=== PATIENT | male | born 1945 | race African-American/Black ===

== ENCOUNTER 2019-12-11 12:05 | Inpatient (IN) | payer MEDICARE, OTHER ==
[~2019-12-11] VITALS: Ht 198.1 cm; Wt 77.1 kg
[2019-12-11 12:19] VITALS: BP 120/71
[2019-12-11] MEDS ORDERED: DULCOLAX10 MG RC (12:32)
[2019-12-11] MEDS ORDERED: AMANTADINE100 M2 ORAL (12:32)
[2019-12-11] MEDS ORDERED: MULTIVITAMINS1 EAC2 ORAL (12:32)
[2019-12-11] MEDS ORDERED: FLEET ENEMA133 ML RECTAL (12:32)
[2019-12-11] MEDS ORDERED: CRANBERRY450 M5 PO (12:32)
[2019-12-11] MEDS ORDERED: COLACE100 MG ORAL (12:32)
[2019-12-11] MEDS ORDERED: ARTIFICIAL TEAR15 M2 OP (12:32)
[2019-12-11] MEDS ORDERED: VITAMIN C500 M1 ORAL (12:32)
[2019-12-11] MEDS ORDERED: ACETAMINOPHEN500 MG ORAL (12:32)
[2019-12-11] MEDS ORDERED: MILK OF MA400 MG/51 ORAL (12:32)
[2019-12-11] MEDS ORDERED: LIDODERM700 M1 TOPIC (12:32)
[2019-12-11] MEDS ORDERED: CHOLECALCIFEROL1 G1 MC (12:32)
[2019-12-11] MEDS ORDERED: VOLTAREN100 G1 TP (12:33)
--- NOTE | 2019-12-11 12:50 | Emergency Room Report ---
History of Present Illness General Chief Complaint: Fever Present Illness HPI Disclaimer: Please note that this report is being documented using Or[employer] technology. This can lead to erroneous entry secondary to incorrect interpretation by the dictating instrument. HPI: 74-year-old male history of Parkinson's disease, generalized weakness, anxiety, dementia presented for fever. Patient reportedly have fever today of 100.6. No other report of nausea vomiting diarrhea or other complaints. Patient is altered at baseline and unable to provide any further history. Primary care doctor is Dr. Anderson PMH: Parkinson's disease, dementia PSH: Reviewed Social Hx: [facility] Allergies: Coded Allergies: No Known Allergies (Unverified , 12/11/19) Patient History Reviewed Nursing Documentation: PMH: Agreed; PSxH: Agreed Review of Systems All Other Systems: limited - due to AMS Physical Exam Vital Signs Date Time Temp Pulse Resp B/P (MAP) Pulse Ox O2 Delivery O2 Flow Rate FiO2 12/11/19 12:08 98.8 84 28 128/77 (94) 100 Nasal Cannula 2.0 Sp02 EP Interpretation: reviewed, normal General Appearance: other - tremor noted, Chronically Ill Head: normocephalic, atraumatic Eyes: bilateral eye PERRL, bilateral eye EOMI ENT: hearing grossly normal, moist mucus membranes Neck: full range of motion, supple Respiratory: lungs clear, normal breath sounds, no rhonchi, no respiratory distress, no retraction, no wheezing Cardiovascular #1: normal peripheral pulses, regular rate, rhythm, no murmur Gastrointestinal: non tender, soft, non-distended, no guarding Neurologic: alert, no focal defects, other - Patient awake but not oriented, baseline tremor noted in upper and lower extremities. Skin: normal color, warm/dry Medical Decision Making Diagnostic Impression: Primary Impression: Fever Additional Impressions: Suspected COVID-19 virus infection Failure to thrive ER Course MDM: Patient presents for fever, differential included but not limited to COVID , UTI, pneumonia to name a few. Clinical course-IV cardiac monitoring pulse oximetry, 2 L nasal cannula, chest x -ray and coronavirus testing were sent. In the ER patient mildly hypoxic requiring 2 L nasal cannula. Chest x-ray did not demonstrate any obvious infiltrate. Laboratory studies showed no leukocytosis. Urinalysis without evidence of infection. Patient was febrile with mild hypoxia so I do suspect possible coronavirus infection as he did come from a jail facility. Labs - Laboratory Tests Test 12/11/19 12:15 12/11/19 12:46 White Blood Count 8.5 K/UL (4.8-10.8) Red Blood Count 5.84 M/UL (4.70-6.10) Hemoglobin 17.6 G/DL (14.2-18.0) Hematocrit 49.7 % (42.0-52.0) Mean Corpuscular Volume 85 FL (80-99) Mean Corpuscular Hemoglobin 30.2 PG (27.0-31.0) Mean Corpuscular Hemoglobin Concent 35.5 G/DL (32.0-36.0) Red Cell Distribution Width 12.0 % (11.6-14.8) Platelet Count 301 K/UL (150-450) Mean Platelet Volume 5.0 FL (6.5-10.1) L Neutrophils (%) (Auto) 83.1 % (45.0-75.0) H Lymphocytes (%) (Auto) 8.5 % (20.0-45.0) L Monocytes (%) (Auto) 7.7 % (1.0-10.0) Eosinophils (%) (Auto) 0.0 % (0.0-3.0) Basophils (%) (Auto) 0.8 % (0.0-2.0) Sodium Level 144 MMOL/L (136-145) Potassium Level 4.0 MMOL/L (3.5-5.1) Chloride Level 104 MMOL/L (98-107) Carbon Dioxide Level 30 MMOL/L (21-32) Anion Gap 10 mmol/L (5-15) Blood Urea Nitrogen 54 mg/dL (7-18) H Creatinine 2.3 MG/DL (0.55-1.30) H Estimated Glomerular Filtration Rate 34.1 mL/min (>60) Glucose Level 140 MG/DL (74-106) H Lactic Acid Level 1.60 mmol/L (0.4-2.0) Calcium Level 9.3 MG/DL (8.5-10.1) Total Bilirubin 0.7 MG/DL (0.2-1.0) Aspartate Amino Transferase (AST) 133 U/L (15-37) H Alanine Aminotransferase (ALT) 95 U/L (12-78) H Alkaline Phosphatase 76 U/L (46-116) Total Creatine Kinase 861 U/L (26-308) H Creatine Kinase MB 0.7 NG/ML (0.0-3.6) Creatine Kinase MB Relative Index 0.0 Troponin I 0.021 ng/mL (0.000-0.056) Total Protein 8.1 G/DL (6.4-8.2) Albumin 3.6 G/DL (3.4-5.0) Globulin 4.5 g/dL Albumin/Globulin Ratio 0.8 (1.0-2.7) L Urine Color Yellow Urine Appearance Clear Urine pH 5 (4.5-8.0) Urine Specific [place] 1.025 (1.005-1.035) Urine Protein 3+ (NEGATIVE) H Urine Glucose (UA) Negative (NEGATIVE) Urine Ketones 1+ (NEGATIVE) H Urine Blood 2+ (NEGATIVE) H Urine Nitrite Negative (NEGATIVE) Urine Bilirubin 1+ (NEGATIVE) H Urine Ictotest Negative (NEGATIVE) Urine Urobilinogen 1 MG/DL (0.0-1.0) H Urine Leukocyte Esterase 1+ (NEGATIVE) H Urine RBC 2-4 /HPF (0 - 0) H Urine WBC 0-2 /HPF (0 - 0) Urine Squamous Epithelial Cells Occasional /LPF Urine Bacteria Few /HPF (NONE) On reevaluation: Plan- EKG Diagnostic Results Rate: normal Rhythm: NSR ST Segments: no acute changes Rhythm Strip Diag. Results EP Interpretation: yes Rate: 93 Rhythm: NSR, no PVC's, no ectopy Chest X-Ray Diagnostic Results Chest X-Ray Diagnostic Results : Chest X-Ray Ordered: Yes # of Views/Limited/Complete: 1 View Indication: Shortness of Breath EP Interpretation: Yes Interpretation: no consolidation, no effusion, no pneumothorax Impression: No acute disease Electronically Signed by: Braden Garcia MD Last Vital Signs Date Time Temp Pulse Resp B/P (MAP) Pulse Ox O2 Delivery O2 Flow Rate FiO2 12/11/19 12:19 100 23 Nasal Cannula 2.0 12/11/19 12:19 98.1 120/71 99 Disposition: ADMITTED INPATIENT Condition: Serious Referrals: Kevin Anderson MD (PCP) Braden Garcia M.D. Dec 11, 2019 12:50
[2019-12-11 12:52] LABS: BASOPHILS % (AUTO) 0.8 % (0.0-2.0); HEMATOCRIT 49.7 % (42.0-52.0); HEMOGLOBIN 17.6 G/DL (14.2-18.0); LYMPHOCYTES % (AUTO) 8.5 % (20.0-45.0); MEAN CORPUSCULAR VOLUME 85 FL (80-99); MONOCYTES % (AUTO) 7.7 % (1.0-10.0); NEUTROPHILS % (AUTO) 83.1 % (45.0-75.0); PLATELET COUNT 301 K/UL (150-450); RED BLOOD COUNT 5.84 M/UL (4.70-6.10); WHITE BLOOD COUNT 8.5 K/UL (4.8-10.8)
[2019-12-11 12:55] LABS: APPEARANCE,URINE CLEAR; BILIRUBIN, URINE 1+ (NEGATIVE); GLUCOSE, URINE (UA) NEGATIVE (NEGATIVE); KETONES,URINE 1+ (NEGATIVE); LEUKOCYTE ESTERASE ,URINE 1+ (NEGATIVE); NITRITE,URINE NEGATIVE (NEGATIVE); PH,URINE 5 (4.5-8.0); PROTEIN,URINE 3+ (NEGATIVE); UROBILINOGEN,URINE 1 MG/DL (0.0-1.0)
[2019-12-11 12:59] LABS: COLOR,URINE YELLOW
[2019-12-11 13:00] LABS: ANION GAP 10 mmol/L (5-15); BLOOD UREA NITROGEN 54 mg/dL (7-18); CALCIUM 9.3 MG/DL (8.5-10.1); CARBON DIOXIDE 30 MMOL/L (21-32); CHLORIDE 104 MMOL/L (98-107); CREATININE 2.3 MG/DL (0.55-1.30); SODIUM 144 MMOL/L (136-145)
[2019-12-11 13:15] LABS: ALANINE AMINOTRANSFERASE 95 U/L (12-78); ALBUMIN 3.6 G/DL (3.4-5.0); ALBUMIN/GLOBULIN RATIO 0.8 (1.0-2.7); ALKALINE PHOSPHATASE 76 U/L (46-116); ASPARTATE AMINO TRANSFERASE 133 U/L (15-37); BILIRUBIN,TOTAL 0.7 MG/DL (0.2-1.0); CKMB 0.7 NG/ML (0.0-3.6); CREATINE KINASE 861 U/L (26-308)
--- NOTE | 2019-12-11 16:20 | Diagnostic Imaging Report ---
Indication: Shortness of breath Technique: One view of the chest Comparison: none Findings: Inspiration is suboptimal. There are perihilar atelectatic changes. There is mild central bronchial wall thickening. Lungs and pleural spaces are clear otherwise. The heart size is normal. The aorta is tortuous. Prominent gas-filled bowel loops are noted. Impression: Chronic appearing central bronchial wall thickening. Low lung volumes. No definite acute process
[2019-12-11 16:44] VITALS: BP 141/82
[2019-12-11 19:00] VITALS: BP 113/65
[2019-12-11 22:15] VITALS: BP 144/76
[2019-12-12 01:40] VITALS: BP 146/85
[2019-12-12 04:00] VITALS: BP 113/68
[2019-12-12 06:39] LABS: HEMATOCRIT 49.9 % (42.0-52.0); HEMOGLOBIN 17.4 G/DL (14.2-18.0); MEAN CORPUSCULAR VOLUME 87 FL (80-99); PLATELET COUNT 282 K/UL (150-450); RED BLOOD COUNT 5.77 M/UL (4.70-6.10); RED CELL DISTRIBUTION WIDTH 11.9 % (11.6-14.8); WHITE BLOOD COUNT 10.5 K/UL (4.8-10.8)
[2019-12-12 07:28] LABS: ALANINE AMINOTRANSFERASE 111 U/L (12-78); ALBUMIN 3.4 G/DL (3.4-5.0); ALBUMIN/GLOBULIN RATIO 0.7 (1.0-2.7); ALKALINE PHOSPHATASE 72 U/L (46-116); ANION GAP 11 mmol/L (5-15); ASPARTATE AMINO TRANSFERASE 151 U/L (15-37); BILIRUBIN,TOTAL 0.9 MG/DL (0.2-1.0); BLOOD UREA NITROGEN 69 mg/dL (7-18); CALCIUM 9.2 MG/DL (8.5-10.1); CARBON DIOXIDE 31 MMOL/L (21-32); CHLORIDE 105 MMOL/L (98-107); CREATININE 1.7 MG/DL (0.55-1.30); POTASSIUM 3.7 MMOL/L (3.5-5.1); SODIUM 147 MMOL/L (136-145)
[2019-12-12 07:50] LABS: CREATINE KINASE 680 U/L (26-308); GAMMA GLUTAMYL TRANSPEPTIDASE 189 U/L (5-85); PHOSPHORUS 3.3 MG/DL (2.5-4.9)
[2019-12-12 08:00] VITALS: BP_SYST 122; BP_SYST 135; BP_DIAS 78; BP_DIAS 89
[2019-12-12] MEDS: Acetaminophen 650 MG SUPP RECTAL PRN ×2 (09:26→21:26)
--- NOTE | 2019-12-12 10:27 | Consultation ---
Consult Note Consult Note I was asked to evaluate the patient at the request of Dr. Ruby for renal failure. Visited patient in room 414. Patient is lethargic. Does not contribute to any history taking. It is the patient's first admission here at [facility]. Emergency room note: 74-year-old male history of Parkinson's disease, generalized weakness, anxiety, dementia presented for fever. Patient reportedly have fever today of 100.6. No other report of nausea vomiting diarrhea or other complaints. Patient is altered at baseline and unable to provide any further history. Primary care doctor is Dr. Anderson PMH: Parkinson's disease, dementia Social Hx: Currently lives in a [facility] facility No Known Allergies (Unverified , 12/11/19) No prior records here at [facility]. Current data in EMR reviewed. Patient examined. . Assessment/Plan This 74-year-old male is admitted with fever and possible COVID positive infection On presentation the patient has acute renal failure which suggests a pattern of mainly dehydration Most likely has underlying chronic kidney disease Other conditions include Parkinson's and dementia Evidence of UTI Elevated CK possible rhabdo Keep n.p.o. until evaluated by speech therapy IV hydration, monitor CPK and liver function tests Monitor renal parameters Flomax Per consultants Brent Gonsales MD Dec 12, 2019 10:27
[2019-12-12 12:00] VITALS: BP 139/79
[2019-12-12] MEDS: D5 1/2NS w/KCL 10meq 1,000 ML IV SCH (12:16)
--- NOTE | 2019-12-12 12:32 | Cardiac Electrophysiology PN ---
Subjective Subjective [id number] Objective Last 24 Hour Vital Signs Date Time Temp Pulse Resp B/P (MAP) Pulse Ox O2 Delivery O2 Flow Rate FiO2 12/12/19 09:56 99.0 12/12/19 09:00 Nasal Cannula 2.0 12/12/19 08:00 99.0 105 20 135/78 (97) 94 12/12/19 04:00 101.0 20 113/68 (83) 96 12/12/19 02:50 Nasal Cannula 2.0 12/12/19 01:44 101.7 12/12/19 01:40 101.7 107 18 146/85 (105) 98 12/11/19 22:15 100.9 103 20 144/76 (98) 94 12/11/19 21:55 98.1 97 25 111/70 97 Nasal Cannula 4.0 12/11/19 19:00 101 28 113/65 98 Nasal Cannula 4.0 12/11/19 16:44 98.1 99 22 141/82 99 Nasal Cannula 2.0 Laboratory Tests Test 12/11/19 12:46 12/12/19 04:45 Urine Color Yellow Urine Appearance Clear Urine pH 5 (4.5-8.0) Urine Specific [place] 1.025 (1.005-1.035) Urine Protein 3+ (NEGATIVE) H Urine Glucose (UA) Negative (NEGATIVE) Urine Ketones 1+ (NEGATIVE) H Urine Blood 2+ (NEGATIVE) H Urine Nitrite Negative (NEGATIVE) Urine Bilirubin 1+ (NEGATIVE) H Urine Ictotest Negative (NEGATIVE) Urine Urobilinogen 1 MG/DL (0.0-1.0) H Urine Leukocyte Esterase 1+ (NEGATIVE) H Urine RBC 2-4 /HPF (0 - 0) H Urine WBC 0-2 /HPF (0 - 0) Urine Squamous Epithelial Cells Occasional /LPF Urine Bacteria Few /HPF (NONE) White Blood Count 10.5 K/UL (4.8-10.8) Red Blood Count 5.77 M/UL (4.70-6.10) Hemoglobin 17.4 G/DL (14.2-18.0) Hematocrit 49.9 % (42.0-52.0) Mean Corpuscular Volume 87 FL (80-99) Mean Corpuscular Hemoglobin 30.2 PG (27.0-31.0) Mean Corpuscular Hemoglobin Concent 34.9 G/DL (32.0-36.0) Red Cell Distribution Width 11.9 % (11.6-14.8) Platelet Count 282 K/UL (150-450) Mean Platelet Volume 5.1 FL (6.5-10.1) L Neutrophils (%) (Auto) % (45.0-75.0) Lymphocytes (%) (Auto) % (20.0-45.0) Monocytes (%) (Auto) % (1.0-10.0) Eosinophils (%) (Auto) % (0.0-3.0) Basophils (%) (Auto) % (0.0-2.0) Differential Total Cells Counted 100 Neutrophils % (Manual) 87 % (45-75) H Lymphocytes % (Manual) 7 % (20-45) L Monocytes % (Manual) 5 % (1-10) Eosinophils % (Manual) 0 % (0-3) Basophils % (Manual) 0 % (0-2) Band Neutrophils 1 % (0-8) Platelet Estimate Adequate Platelet Morphology Normal Red Blood Cell Morphology Normal Sodium Level 147 MMOL/L (136-145) H Potassium Level 3.7 MMOL/L (3.5-5.1) Chloride Level 105 MMOL/L (98-107) Carbon Dioxide Level 31 MMOL/L (21-32) Anion Gap 11 mmol/L (5-15) Blood Urea Nitrogen 69 mg/dL (7-18) H Creatinine 1.7 MG/DL (0.55-1.30) H Estimat Glomerular Filtration Rate 48.2 mL/min (>60) Glucose Level 130 MG/DL (74-106) H Uric Acid 5.7 MG/DL (2.6-7.2) Calcium Level 9.2 MG/DL (8.5-10.1) Phosphorus Level 3.3 MG/DL (2.5-4.9) Magnesium Level 2.7 MG/DL (1.8-2.4) H Total Bilirubin 0.9 MG/DL (0.2-1.0) Gamma Glutamyl Transpeptidase 189 U/L (5-85) H Aspartate Amino Transf (AST/SGOT) 151 U/L (15-37) H Alanine Aminotransferase (ALT/SGPT) 111 U/L (12-78) H Alkaline Phosphatase 72 U/L (46-116) Total Creatine Kinase 680 U/L (26-308) H Total Protein 8.0 G/DL (6.4-8.2) Albumin 3.4 G/DL (3.4-5.0) Globulin 4.6 g/dL Albumin/Globulin Ratio 0.7 (1.0-2.7) L Microbiology Date/Time Source Procedure Growth Status 12/11/19 12:10 Nasopharynx Coronavirus COVID-19 PCR (EVIE) - Final Complete Luis Daniel Harding MD Dec 12, 2019 12:32
[2019-12-12] MEDS: Docusate 100mg cap ORAL SCH ×2 (13:00→17:15)
[2019-12-12] MEDS ORDERED: Amantadine 100mg cap ORAL SCH ×2 (13:00→18:00)
--- NOTE | 2019-12-12 14:30 | Consultation ---
DATE OF CONSULTATION: 12/12/2019 PULMONARY CONSULTATION CONSULTING PHYSICIAN: Xavier Gupta MD. HISTORY OF PRESENT ILLNESS: This is a 74-year-old male with a history of Parkinson disease, anxiety, and dementia, was admitted to the hospital with fever. The patient was febrile up to 100.6 degrees Fahrenheit. PAST MEDICAL HISTORY: The patient's past is notable for Parkinson's and dementia. [facility] is a [facility] resident. SURGERIES: None reported. HOME MEDICATIONS: Reviewed and reconciled in the chart. REVIEW OF SYSTEMS: Unreliable. PHYSICAL EXAMINATION: GENERAL: Reveals a 74-year-old male. VITAL SIGNS: T-max 101.7, heart rate 110, respirations 20, O2 saturation 96% on 2 L of oxygen, blood pressure 120/80. HEENT: Unremarkable. CHEST: Diminished breath sounds bilaterally. HEART: Normal heart sounds. ABDOMEN: Soft. EXTREMITIES: There is no edema. LABORATORY DATA: Lab testing shows normal CBC and BMP. Creatinine now is 1.7, earlier was 2.3. Magnesium 2.7. He has elevation of AST and ALT. Total CK 680. COVID-19 PCR obtained yesterday is positive. IMPRESSION: 1. COVID-19 pneumonia. 2. Parkinson's and dementia. 3. Transaminitis. DISCUSSION: The patient's x-ray is clear with some chronic-appearing changes, currently saturating well on nasal oxygen. We will follow as tile classifier. Ordered oxygen and pulmonary hygiene. Defer antibiotic use to ID specialist. We will follow. Xavier Gupta M.D. DR: WILBERTO JOB#: [id number] CC:
[2019-12-12 16:00] VITALS: BP 136/80
--- NOTE | 2019-12-12 16:00 | Consultation ---
DATE OF CONSULTATION: 12/12/2019 CARDIOLOGY CONSULTATION CONSULTING PHYSICIAN: Luis Daniel Harding MD. REFERRING PHYSICIAN: Kevin Anderson MD. REASON FOR CONSULTATION: Tachycardia. HISTORY OF PRESENT ILLNESS: Patient is a 74-year-old gentleman with history of anxiety, dementia, Parkinson disease who was essentially nonverbal, was brought to the hospital for fever and a temperature of 100.6. Patient was admitted and a Cardiology consultation was obtained in view of patient's tachycardia. At the time of my evaluation, patient is nonverbal and is unable to provide any meaningful information. Patient also was found to have acute renal failure and UTI as well as rhabdomyolysis. PAST MEDICAL HISTORY: As mentioned above. FAMILY HISTORY: Noncontributory. SOCIAL HISTORY: He lives in group home. PHYSICAL EXAMINATION: VITAL SIGNS: Show blood pressure 130/78, pulse is 105, respirations 18, temperature is 101.7. HEAD AND NECK: Shows no JVD. LUNGS: Coarse rhonchi. CARDIOVASCULAR: Shows regular S1 and S2 with no gallop or murmur. Tachycardic. ABDOMEN: Soft. EXTREMITIES: No pitting edema. LABORATORY DATA: Labs show sodium 147, potassium 3.7, BUN of 69, creatinine 1.7, glucose of 130. CK is 860, second CK is 680. Troponin is negative. ASSESSMENT AND PLAN: 1. Tachycardia, likely sinus tachycardia due to dehydration and sepsis since patient is still febrile. His first troponin is negative. 2. Sepsis. Patient is on IV antibiotic per ID. 3. Rhabdomyolysis and renal failure with creatinine of 2.3, improved to 1.7. Under management Dr. Gonsales. 4. Parkinson disease and dementia. Thank you very much for allowing me to participate in the care of this patient. Please do not hesitate to contact me for any questions regarding my evaluation. Luis Daniel Harding M.D. DR: PHYLLIS JOB#: [id number] CC:
[2019-12-12] MEDS: Levodopa/Carbidopa 10/100 tab ORAL SCH (16:08)
--- NOTE | 2019-12-12 16:15 | Consultation ---
DATE OF CONSULTATION: 12/12/2019 CONSULTING PHYSICIAN: Balaji Medina MD. CHIEF COMPLAINT: Abnormal liver function tests, dysphagia. HISTORY OF PRESENT ILLNESS: Most of the history per chart. [facility] in [facility]. Patient was admitted to the hospital with fever, was found to have a COVID positive pneumonia. GI consultation requested for evaluation of abnormal liver function tests and dysphagia. Since admission, patient was seen by Nephrology for elevated creatinine, which was most likely secondary to dehydration. Patient also has possibly urinary tract infection. PAST MEDICAL HISTORY: Significant for: 1. History of Parkinson disease. 2. Arthritis. 3. Dysphagia. 4. Muscle weakness. ALLERGIES: No known drug allergies. MEDICATIONS: Please see medication reconciliation list. FAMILY HISTORY: Noncontributory. SOCIAL HISTORY: Currently in a [facility]. No history of tobacco, alcohol, or drug abuse. REVIEW OF SYSTEMS: Unable to obtain. PAST SURGICAL HISTORY: Unknown. PHYSICAL EXAMINATION: VITAL SIGNS: Temperature T-max 101.7, T-current 99, pulse is 105, respirations 20, blood pressure is 134/78. HEENT: Normocephalic, atraumatic. Sclerae anicteric. NECK: Supple. No evidence of obvious lymphadenopathy. CARDIOVASCULAR: Tachy. Regular rate. Plus S1-S2. LUNGS: Decreased breath sounds bilaterally and diffusely on the supine exam. ABDOMEN: Soft, nontender. No rebound. No guarding. No peritoneal sign. EXTREMITIES: No cyanosis, no clubbing, no edema. LABORATORY DATA: White count is 10, hemoglobin 17, hematocrit 49, platelet count is 282. Chem-7, sodium 147, potassium 3.7, BUN 69, creatinine is 1.7. Liver function tests, AST of 151, ALT of 111. ASSESSMENT AND PLAN: This is a 74-year-old male with COVID positive pneumonia, acute dehydration with elevated BUN creatinine ratio, abnormal liver function tests, most probably secondary to COVID positive ammonia and also failure to thrive. Plan pending swallow evaluation. If patient fails to swallow, we will plan to put an NG tube for temporary feeding until permanent feeding is decided. In terms of abnormal liver function tests, again it is most probably secondary to COVID positive pneumonia. We will monitor and consider abdominal ultrasound if needed. Meanwhile, we are going to also order hepatitis panel. I want to thank Dr. Kevin Anderson, for this kind referral. Balaji Medina M.D. DR: JED JOB#: [id number] CC: Kevin Anderson M.D.; Fax#: [phone]
[2019-12-12] MEDS: cefTRIAXone 1 GM in D5W 55 ML IVPB SCH (17:19)
[2019-12-12 20:00] VITALS: BP 108/59
[2019-12-12] MEDS: Pantoprazole Inj IVP SCH (20:45)
[2019-12-12] MEDS ORDERED: Tamsulosin 0.4mg cap ORAL SCH (21:00)
[2019-12-13] VITALS: BP 118/62
--- NOTE | 2019-12-13 00:30 | Consultation ---
DATE OF CONSULTATION: 12/12/2019 INFECTIOUS DISEASES CONSULTATION CONSULTING PHYSICIAN: Kelvin Lafleur MD PRIMARY ATTENDING PHYSICIAN: Kevin Anderson MD REASON FOR CONSULTATION: COVID-19 disease. HISTORY OF PRESENT ILLNESS: The patient is a 74-year-old female, admitted from a long-term facility because of fever, had a temperature of 100.6 at the facility. The patient has dementia and is not a source of history. In the hospital, had fever up to 101.7. PAST MEDICAL HISTORY: Significant for dementia, Parkinson disease, and dysphagia. ALLERGIES: No known drug allergies. MEDICATIONS: Flomax, Protonix, amlodipine, carbidopa and levodopa, Tylenol, and Zofran. SOCIAL HISTORY: [facility] resident, single. No other history obtainable. PHYSICAL EXAMINATION: VITAL SIGNS: Temperature 99, pulse 105, blood pressure 135/78. GENERAL APPEARANCE: Seems to have normal weight. HEAD AND NECK: [place] conjunctivae. HEART: Tachycardic. LUNGS: Clear. ABDOMEN: Soft, nontender. EXTREMITIES: No edema. LABORATORY AND DIAGNOSTIC DATA: WBC 10.5, hemoglobin 17.4, hematocrit 49.5, platelets 282, lymphocytes are 8.5%. Sodium 147, potassium 3.7, chloride 107, bicarb 31, BUN 69, creatinine 1.7. Lactic acid 1.3. CK was 861 at the time of admission. COVID-19 test PCR was positive. Chest x-ray, clinical appearance, central bronchial wall thickening. Low lung volumes. IMPRESSION: COVID-19 pneumonia. The patient also has an increased risk for aspiration because of dysphagia and dementia, hypertension, dysphagia, acute renal failure, rhabdomyolysis, elevation of transaminase, AST 151, ALT is 111. RECOMMENDATIONS: We will start the patient on ceftriaxone. Follow up chest x-ray. The patient is not eligible for use of remdesivir because of acute renal failure. At the end of my exam, I thank Dr. Andersno for involving me in the care of this patient. Kelvin Lafleur M.D. DR: GAYLE JOB#: [id number] CC: ULISES
[2019-12-13] MEDS: Acetaminophen 650 MG SUPP RECTAL PRN (01:37)
[2019-12-13] MEDS: D5 1/2NS w/KCL 10meq 1,000 ML IV SCH ×2 (01:56→12:51)
--- NOTE | 2019-12-13 03:30 | History and Physical Report ---
DATE OF ADMISSION: 12/11/2019 HISTORY OF PRESENT ILLNESS: The patient is a poor historian, is admitted for COVID positive pneumonia, respiratory insufficiency. The patient had a fever [facility] 102 at the [facility]. Cannot get history from the patient. The patient has history of Parkinson disease, generalized weakness, and dementia. The patient had no nausea, vomiting, or diarrhea. The patient is altered. The patient also had elevated blood pressure at the [facility] as well as hypoxia, was on 2 liters, was very weak and not eating for 3 days. The patient is also admitted for acute renal failure, borderline elevated troponin, elevated LFTs as well. PAST MEDICAL HISTORY: Organic brain syndrome, dementia, Parkinson disease. Also significant for constipation as well as vitamin D deficiency. PAST SURGICAL HISTORY: None known. ALLERGIES: No known allergies. FAMILY HISTORY: Noncontributory. SOCIAL HISTORY: He has no history of smoking, alcohol, or illicit drugs. Comes from facility. REVIEW OF SYSTEMS: Unable to obtain, very lethargic. PHYSICAL EXAMINATION: VITAL SIGNS: Temperature is 99, pulse is 105, blood pressure 135/78. HEENT: PERRLA. CHEST: Bibasilar rhonchi. CARDIOVASCULAR: Tachycardic. GASTROINTESTINAL: Soft. Positive bowel sounds. No organomegaly. EXTREMITIES: No edema. There is generalized weakness. Lethargic. Non-oriented. LABORATORY DATA: WBC of 8.5, hemoglobin 17.6, platelets of 301. Sodium 147, potassium 3.7. BUN of 69, creatinine 1.2. Glucose of 130. AST of 151, ALT of 111, total bilirubin of 0.9. ASSESSMENT/PLAN: COVID positive pneumonia, respiratory insufficiency, sepsis, acute renal failure, hypoxia, elevated liver function tests, acute renal failure, and poor appetite. I have consulted Dr. Fernandes for Parkinson's treatment as well as for Dr. Gupta, Dr. Kelvin Lafleur, Dr. Medina, Dr. Harding and Dr. Gonsales to help with the management of the hypoxia, weakness, failure to thrive as well as borderline troponin elevation as well as to help with the elevated BP as well as to help with the management of the pneumonia as well as to find etiology of elevated LFTs. Kevin Anderson M.D. DR: ALFIE JOB#: [id number] CC:
[2019-12-13 04:00] VITALS: BP 120/70
[2019-12-13 07:11] LABS: ALANINE AMINOTRANSFERASE 85 U/L (12-78); ALBUMIN 2.8 G/DL (3.4-5.0); ALBUMIN/GLOBULIN RATIO 0.6 (1.0-2.7); ALKALINE PHOSPHATASE 54 U/L (46-116); ANION GAP 12 mmol/L (5-15); ASPARTATE AMINO TRANSFERASE 114 U/L (15-37); BILIRUBIN,TOTAL 1.7 MG/DL (0.2-1.0); BLOOD UREA NITROGEN 89 mg/dL (7-18); CALCIUM 9.1 MG/DL (8.5-10.1); CARBON DIOXIDE 27 MMOL/L (21-32); CHLORIDE 108 MMOL/L (98-107); CREATINE KINASE 492 U/L (26-308); CREATININE 2.3 MG/DL (0.55-1.30); GAMMA GLUTAMYL TRANSPEPTIDASE 157 U/L (5-85); PHOSPHORUS 2.8 MG/DL (2.5-4.9); SODIUM 147 MMOL/L (136-145)
[2019-12-13 07:18] LABS: HEMATOCRIT 52.9 % (42.0-52.0); HEMOGLOBIN 17.3 G/DL (14.2-18.0); MEAN CORPUSCULAR VOLUME 93 FL (80-99); PLATELET COUNT 205 K/UL (150-450); WHITE BLOOD COUNT 9.7 K/UL (4.8-10.8)
[2019-12-13 07:26] LABS: BILIRUBIN,DIRECT 0.6 MG/DL (0.0-0.3)
[2019-12-13 08:00] VITALS: BP 122/65
--- NOTE | 2019-12-13 08:45 | Consultation ---
DATE OF CONSULTATION: 12/12/2019 HISTORY OF PRESENT ILLNESS: This is a 74-year-old male with a history of anxiety disorder, psychotic disorder, dementia, Parkinson disease as well as arthritis, dysphagia, who has been admitted to the hospital. Psychiatry was consulted as the patient has anxiety and involuntary movement. During the evaluation, the patient was in bed, eyes closed, would not follow direction. The patient had abnormal involuntary movements and mouth. The patient was smacking and plucking on his lips and wiggling his fingers. He has a diagnosis of Parkinson and is on amantadine,tardive dyskinesia. The patient also has low appetite and . PAST PSYCHIATRIC HISTORY: Significant for psychotic disorder as well as anxiety disorder. He is currently on no psychotropic medications. PAST MEDICAL HISTORY: Significant for arthritis, muscle weakness, Parkinson disease. ALLERGIES: No known drug allergies. SUBSTANCE ABUSE HISTORY: No illicit drug use or alcohol. MENTAL STATUS EXAMINATION: The patient is awake, disoriented. Mood is anxious. Affect is flat. Thought process is concrete. Thought content, no suicidal, homicidal ideation. Cognition is impaired. Insight and judgment impaired. ASSESSMENT: [place] 1 Anxiety disorder, Dementia. [place] II Deferred. [place] III As above. [place] IV Low [place] V 20 PLAN: 1. We will decrease the amantadine to 50 t.i.d. 2. Start the patient on Sinemet 10/100 one tab three times a day. 3. The patient may benefit from benzodiazepine, however, we will hold off on benzodiazepines COVID-19. 4. . Bhavesh Fernandes M.D. DR: MATT JOB#: [id number] CC: ULISES
[2019-12-13] MEDS: Pantoprazole Inj IVP SCH ×2 (09:39→21:26)
[2019-12-13] MEDS: Docusate 100mg cap ORAL SCH ×3 (09:39→17:33)
[2019-12-13] MEDS: Levodopa/Carbidopa 10/100 tab ORAL SCH ×3 (09:39→17:33)
--- NOTE | 2019-12-13 11:19 | Pulmonology Progress Note ---
Subjective Interval Events: None new Constitutional: Reports: no symptoms HEENT: Repors: no symptoms Respiratory: Reports: no symptoms Cardiovascular: Reports: no symptoms Gastrointestinal/Abdominal: Reports: no symptoms Genitourinary: Reports: no symptoms Allergies: Coded Allergies: No Known Allergies (Unverified , 12/11/19) Objective Last 24 Hour Vital Signs Date Time Temp Pulse Resp B/P (MAP) Pulse Ox O2 Delivery O2 Flow Rate FiO2 12/13/19 09:39 101 122/65 12/13/19 09:00 Nasal Cannula 2.0 12/13/19 08:00 100.0 101 20 122/65 (84) 94 12/13/19 04:00 98.1 98 24 120/70 (87) 91 12/13/19 00:00 102.0 107 36 118/62 (80) 90 12/12/19 21:56 102.0 12/12/19 21:00 Nasal Cannula 2.0 12/12/19 20:00 102.0 117 33 108/59 (75) 91 12/12/19 17:16 100 136/80 12/12/19 16:00 98.9 100 21 136/80 (98) 96 12/12/19 12:00 99.0 108 22 139/79 (99) 94 Intake and Output 12/12/19 12/13/19 19:00 07:00 Intake Total 831 ml Output Total 600 ml 600 ml Balance 231 ml -600 ml Intake Oral 240 ml IV Total 591 ml Output Urine Total 600 ml 600 ml # Bowel Movements 2 2 General Appearance: no acute distress HEENT: normocephalic Respiratory: chest wall non-tender Cardiovascular: normal peripheral pulses Abdomen: normal bowel sounds Microbiology Date/Time Source Procedure Growth Status 12/11/19 12:15 Blood Blood Culture - Preliminary NO GROWTH AFTER 24 HOURS Resulted 12/11/19 12:10 Blood Blood Culture - Preliminary NO GROWTH AFTER 24 HOURS Resulted 12/11/19 12:55 Nasal Nares MRSA Culture - Final NO METHICILLIN RESISTANT STAPH AUREUS... Complete 12/11/19 12:10 Nasopharynx Coronavirus COVID-19 PCR (EVIE) - Final Complete Laboratory Tests 12/12/19 17:30: Carcinoembryonic Antigen [Pending] 12/13/19 04:10: White Blood Count 9.7, Red Blood Count 5.70, Hemoglobin 17.3, Hematocrit 52.9H, Mean Corpuscular Volume 93, Mean Corpuscular Hemoglobin 30.3, Mean Corpuscular Hemoglobin Concent 32.7, Red Cell Distribution Width 12.0, Platelet Count 205, Mean Platelet Volume 5.9L, Neutrophils (%) (Auto) , Lymphocytes (%) (Auto) , Monocytes (%) (Auto) , Eosinophils (%) (Auto) , Basophils (%) (Auto) , Differential Total Cells Counted 100, Neutrophils % (Manual) 80H, Lymphocytes % (Manual) 7L, Monocytes % (Manual) 3, Eosinophils % (Manual) 0, Basophils % ( Manual) 0, Band Neutrophils 10H, Platelet Estimate Adequate, Platelet Morphology Normal, Red Blood Cell Morphology Normal, Sodium Level 147H, Potassium Level 4.0, Chloride Level 108H, Carbon Dioxide Level 27, Anion Gap 12 , Blood Urea Nitrogen 89H, Creatinine 2.3H, Estimat Glomerular Filtration Rate 34.1, Glucose Level 123H, Uric Acid 6.6, Calcium Level 9.1, Phosphorus Level 2.8 , Magnesium Level 2.9H, Total Bilirubin 1.7H, Direct Bilirubin 0.6H, Gamma Glutamyl Transpeptidase 157H, Aspartate Amino Transf (AST/SGOT) 114H, Alanine Aminotransferase (ALT/SGPT) 85H, Alkaline Phosphatase 54, Total Creatine Kinase 492H, C-Reactive Protein, Quantitative 20.1H, Pro-B-Type Natriuretic Peptide 391H, Total Protein 7.5, Albumin 2.8L, Globulin 4.7, Albumin/Globulin Ratio 0.6L , Vitamin B12 Level 1170H, Folate 17.9 Current Medications Medications (Trade) Dose Ordered Sig/Faby Route PRN Reason Start Time Stop Time Status Last Admin Dose Admin Acetaminophen (Tylenol) 650 mg Q4H PRN RECTAL Mild Pain / temp 12/12/19 07:45 01/11/20 07:44 12/13/19 01:37 Amantadine HCl (Symmetrel) 50 mg THREE TIMES A DAY ORAL 12/12/19 18:00 01/11/20 17:59 UNV Amlodipine Besylate (Norvasc) 5 mg BID ORAL 12/12/19 18:00 01/11/20 17:59 12/13/19 09:39 Carbidopa/Levodopa (Sinemet ) 1 tab THREE TIMES A DAY ORAL 12/12/19 16:00 01/11/20 15:59 12/13/19 09:39 Ceftriaxone Sodium 1 gm/ Dextrose 55 ml @ 110 mls/hr Q24H IVPB 12/12/19 18:00 12/19/19 17:59 12/12/19 17:19 Dextrose/ Electrolytes 1,000 ml @ 75 mls/hr [id number] IV 12/12/19 11:00 01/11/20 10:59 12/13/19 01:56 Docusate Sodium (Colace) 100 mg THREE TIMES A DAY ORAL 12/12/19 13:00 01/11/20 12:59 12/13/19 09:39 Ondansetron HCl (Zofran) 4 mg Q6H PRN IVP Nausea & Vomiting 12/12/19 00:15 01/11/20 00:14 Pantoprazole (Protonix) 40 mg EVERY 12 HOURS IVP 12/12/19 21:00 01/11/20 20:59 12/13/19 09:39 Tamsulosin HCl (Flomax) 0.4 mg BEDTIME ORAL 12/12/19 21:00 01/11/20 20:59 Assessment/Plan Assessment/Plan IMPRESSION: 1. COVID-19 pneumonia. 2. Parkinson's and dementia. 3. Transaminitis. DISCUSSION: The patient's x-ray is clear with some chronic-appearing changes, currently saturating well on nasal oxygen. 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 Ordered oxygen and pulmonary hygiene. Defer antibiotic use to ID specialist. Dhara Bariros Omar Syed MD Dec 13, 2019 11:19
--- NOTE | 2019-12-13 11:44 | Infectious Diseases Prog Note ---
Assessment/Plan Assessment/Plan IMPRESSION: COVID-19 pneumonia Dysphagia Dementia, Hypertension, , Acute renal failure, Rhabdomyolysis, Elevation of transaminase & bilirubin RECOMMENDATIONS: We radha continue ceftriaxone. Follow up chest x-ray. Subjective ROS Limited/Unobtainable: Yes Constitutional: Reports: fever, other - [id number] Allergies: Coded Allergies: No Known Allergies (Unverified , 12/11/19) Objective Vital Signs Last 24 Hour Vital Signs Date Time Temp Pulse Resp B/P (MAP) Pulse Ox O2 Delivery O2 Flow Rate FiO2 12/13/19 09:39 101 122/65 12/13/19 09:00 Nasal Cannula 2.0 12/13/19 08:00 100.0 101 20 122/65 (84) 94 12/13/19 04:00 98.1 98 24 120/70 (87) 91 12/13/19 00:00 102.0 107 36 118/62 (80) 90 12/12/19 21:56 102.0 12/12/19 21:00 Nasal Cannula 2.0 12/12/19 20:00 102.0 117 33 108/59 (75) 91 12/12/19 17:16 100 136/80 12/12/19 16:00 98.9 100 21 136/80 (98) 96 12/12/19 12:00 99.0 108 22 139/79 (99) 94 Height (Feet): 6 Height (Inches): 1.00 Weight (Pounds): 170 HEENT: mucous membranes moist Respiratory/Chest: other - oxygen by nasal cannula Cardiovascular: tachycardia Abdomen: soft, non tender Extremities: no edema Neurologic/Psychiatric: aphasia, other - jerky movements of arms Musculoskeletal: atrophy Microbiology Date/Time Source Procedure Growth Status 12/11/19 12:15 Blood Blood Culture - Preliminary NO GROWTH AFTER 24 HOURS Resulted 12/11/19 12:10 Blood Blood Culture - Preliminary NO GROWTH AFTER 24 HOURS Resulted 12/11/19 12:55 Nasal Nares MRSA Culture - Final NO METHICILLIN RESISTANT STAPH AUREUS... Complete 12/11/19 12:10 Nasopharynx Coronavirus COVID-19 PCR (EVIE) - Final Complete Laboratory Tests Test 12/12/19 17:30 12/13/19 04:10 Carcinoembryonic Antigen Pending White Blood Count 9.7 K/UL (4.8-10.8) Red Blood Count 5.70 M/UL (4.70-6.10) Hemoglobin 17.3 G/DL (14.2-18.0) Hematocrit 52.9 % (42.0-52.0) H Mean Corpuscular Volume 93 FL (80-99) Mean Corpuscular Hemoglobin 30.3 PG (27.0-31.0) Mean Corpuscular Hemoglobin Concent 32.7 G/DL (32.0-36.0) Red Cell Distribution Width 12.0 % (11.6-14.8) Platelet Count 205 K/UL (150-450) Mean Platelet Volume 5.9 FL (6.5-10.1) L Neutrophils (%) (Auto) % (45.0-75.0) Lymphocytes (%) (Auto) % (20.0-45.0) Monocytes (%) (Auto) % (1.0-10.0) Eosinophils (%) (Auto) % (0.0-3.0) Basophils (%) (Auto) % (0.0-2.0) Differential Total Cells Counted 100 Neutrophils % (Manual) 80 % (45-75) H Lymphocytes % (Manual) 7 % (20-45) L Monocytes % (Manual) 3 % (1-10) Eosinophils % (Manual) 0 % (0-3) Basophils % (Manual) 0 % (0-2) Band Neutrophils 10 % (0-8) H Platelet Estimate Adequate Platelet Morphology Normal Red Blood Cell Morphology Normal Sodium Level 147 MMOL/L (136-145) H Potassium Level 4.0 MMOL/L (3.5-5.1) Chloride Level 108 MMOL/L (98-107) H Carbon Dioxide Level 27 MMOL/L (21-32) Anion Gap 12 mmol/L (5-15) Blood Urea Nitrogen 89 mg/dL (7-18) H Creatinine 2.3 MG/DL (0.55-1.30) H Estimat Glomerular Filtration Rate 34.1 mL/min (>60) Glucose Level 123 MG/DL (74-106) H Uric Acid 6.6 MG/DL (2.6-7.2) Calcium Level 9.1 MG/DL (8.5-10.1) Phosphorus Level 2.8 MG/DL (2.5-4.9) Magnesium Level 2.9 MG/DL (1.8-2.4) H Total Bilirubin 1.7 MG/DL (0.2-1.0) H Direct Bilirubin 0.6 MG/DL (0.0-0.3) H Gamma Glutamyl Transpeptidase 157 U/L (5-85) H Aspartate Amino Transf (AST/SGOT) 114 U/L (15-37) H Alanine Aminotransferase (ALT/SGPT) 85 U/L (12-78) H Alkaline Phosphatase 54 U/L (46-116) Total Creatine Kinase 492 U/L (26-308) H C-Reactive Protein, Quantitative 20.1 mg/dL (0.00-0.90) H Pro-B-Type Natriuretic Peptide 391 pg/mL (0-125) H Total Protein 7.5 G/DL (6.4-8.2) Albumin 2.8 G/DL (3.4-5.0) L Globulin 4.7 g/dL Albumin/Globulin Ratio 0.6 (1.0-2.7) L Vitamin B12 Level 1170 PG/ML (193-986) H Folate 17.9 NG/ML (8.6-58.9) Current Medications Medications (Trade) Dose Ordered Sig/Faby Route PRN Reason Start Time Stop Time Status Last Admin Dose Admin Acetaminophen (Tylenol) 650 mg Q4H PRN RECTAL Mild Pain / temp 12/12/19 07:45 01/11/20 07:44 12/13/19 01:37 Amantadine HCl (Symmetrel) 50 mg THREE TIMES A DAY ORAL 12/12/19 18:00 01/11/20 17:59 UNV Amlodipine Besylate (Norvasc) 5 mg BID ORAL 12/12/19 18:00 01/11/20 17:59 12/13/19 09:39 Carbidopa/Levodopa (Sinemet 10) 1 tab THREE TIMES A DAY ORAL 12/12/19 16:00 01/11/20 15:59 12/13/19 09:39 Ceftriaxone Sodium 1 gm/ Dextrose 55 ml @ 110 mls/hr Q24H IVPB 12/12/19 18:00 12/19/19 17:59 12/12/19 17:19 Dextrose/ Electrolytes 1,000 ml @ 75 mls/hr [id number] IV 12/12/19 11:00 01/11/20 10:59 12/13/19 01:56 Docusate Sodium (Colace) 100 mg THREE TIMES A DAY ORAL 12/12/19 13:00 01/11/20 12:59 12/13/19 09:39 Ondansetron HCl (Zofran) 4 mg Q6H PRN IVP Nausea & Vomiting 12/12/19 00:15 01/11/20 00:14 Pantoprazole (Protonix) 40 mg EVERY 12 HOURS IVP 12/12/19 21:00 01/11/20 20:59 12/13/19 09:39 Tamsulosin HCl (Flomax) 0.4 mg BEDTIME ORAL 12/12/19 21:00 01/11/20 20:59 Kelvin Lafleur MD Dec 13, 2019 11:44
--- NOTE | 2019-12-13 11:56 | Cardiac Electrophysiology PN ---
Assessment/Plan Assessment/Plan 1. Sinus tachycardia due to dehydration and sepsis His first troponin is negative. FU troponin pending 2. Sepsis. Patient is on IV antibiotic per ID. 3. Rhabdomyolysis and renal failure with creatinine of 2.3, improved to 1.7. FU Dr. Gonsales. 4. Parkinson disease and dementia. Subjective Subjective No new events. COvid positive from 12/11. On 2 liter NC Objective Last 24 Hour Vital Signs Date Time Temp Pulse Resp B/P (MAP) Pulse Ox O2 Delivery O2 Flow Rate FiO2 12/13/19 09:39 101 122/65 12/13/19 09:00 Nasal Cannula 2.0 12/13/19 08:00 100.0 101 20 122/65 (84) 94 12/13/19 04:00 98.1 98 24 120/70 (87) 91 12/13/19 00:00 102.0 107 36 118/62 (80) 90 12/12/19 21:56 102.0 12/12/19 21:00 Nasal Cannula 2.0 12/12/19 20:00 102.0 117 33 108/59 (75) 91 12/12/19 17:16 100 136/80 12/12/19 16:00 98.9 100 21 136/80 (98) 96 12/12/19 12:00 99.0 108 22 139/79 (99) 94 Intake and Output 12/12/19 12/13/19 19:00 07:00 Intake Total 831 ml Output Total 600 ml 600 ml Balance 231 ml -600 ml Intake Oral 240 ml IV Total 591 ml Output Urine Total 600 ml 600 ml # Bowel Movements 2 2 Laboratory Tests Test 12/12/19 17:30 12/13/19 04:10 Carcinoembryonic Antigen Pending White Blood Count 9.7 K/UL (4.8-10.8) Red Blood Count 5.70 M/UL (4.70-6.10) Hemoglobin 17.3 G/DL (14.2-18.0) Hematocrit 52.9 % (42.0-52.0) H Mean Corpuscular Volume 93 FL (80-99) Mean Corpuscular Hemoglobin 30.3 PG (27.0-31.0) Mean Corpuscular Hemoglobin Concent 32.7 G/DL (32.0-36.0) Red Cell Distribution Width 12.0 % (11.6-14.8) Platelet Count 205 K/UL (150-450) Mean Platelet Volume 5.9 FL (6.5-10.1) L Neutrophils (%) (Auto) % (45.0-75.0) Lymphocytes (%) (Auto) % (20.0-45.0) Monocytes (%) (Auto) % (1.0-10.0) Eosinophils (%) (Auto) % (0.0-3.0) Basophils (%) (Auto) % (0.0-2.0) Differential Total Cells Counted 100 Neutrophils % (Manual) 80 % (45-75) H Lymphocytes % (Manual) 7 % (20-45) L Monocytes % (Manual) 3 % (1-10) Eosinophils % (Manual) 0 % (0-3) Basophils % (Manual) 0 % (0-2) Band Neutrophils 10 % (0-8) H Platelet Estimate Adequate Platelet Morphology Normal Red Blood Cell Morphology Normal Sodium Level 147 MMOL/L (136-145) H Potassium Level 4.0 MMOL/L (3.5-5.1) Chloride Level 108 MMOL/L (98-107) H Carbon Dioxide Level 27 MMOL/L (21-32) Anion Gap 12 mmol/L (5-15) Blood Urea Nitrogen 89 mg/dL (7-18) H Creatinine 2.3 MG/DL (0.55-1.30) H Estimat Glomerular Filtration Rate 34.1 mL/min (>60) Glucose Level 123 MG/DL (74-106) H Uric Acid 6.6 MG/DL (2.6-7.2) Calcium Level 9.1 MG/DL (8.5-10.1) Phosphorus Level 2.8 MG/DL (2.5-4.9) Magnesium Level 2.9 MG/DL (1.8-2.4) H Total Bilirubin 1.7 MG/DL (0.2-1.0) H Direct Bilirubin 0.6 MG/DL (0.0-0.3) H Gamma Glutamyl Transpeptidase 157 U/L (5-85) H Aspartate Amino Transf (AST/SGOT) 114 U/L (15-37) H Alanine Aminotransferase (ALT/SGPT) 85 U/L (12-78) H Alkaline Phosphatase 54 U/L (46-116) Total Creatine Kinase 492 U/L (26-308) H C-Reactive Protein, Quantitative 20.1 mg/dL (0.00-0.90) H Pro-B-Type Natriuretic Peptide 391 pg/mL (0-125) H Total Protein 7.5 G/DL (6.4-8.2) Albumin 2.8 G/DL (3.4-5.0) L Globulin 4.7 g/dL Albumin/Globulin Ratio 0.6 (1.0-2.7) L Vitamin B12 Level 1170 PG/ML (193-986) H Folate 17.9 NG/ML (8.6-58.9) Microbiology Date/Time Source Procedure Growth Status 12/11/19 12:15 Blood Blood Culture - Preliminary NO GROWTH AFTER 24 HOURS Resulted 12/11/19 12:10 Blood Blood Culture - Preliminary NO GROWTH AFTER 24 HOURS Resulted 12/11/19 12:55 Nasal Nares MRSA Culture - Final NO METHICILLIN RESISTANT STAPH AUREUS... Complete 12/11/19 12:10 Nasopharynx Coronavirus COVID-19 PCR (EVIE) - Final Complete Objective HEAD AND NECK: no JVD. LUNGS: Coarse rhonchi. CARDIOVASCULAR: Shows regular S1 and S2 with no gallop or murmur. Tachycardic. ABDOMEN: Soft. EXTREMITIES: No pitting edema. Luis Daniel Harding MD Dec 13, 2019 11:56
[2019-12-13 12:00] VITALS: BP 128/73
--- NOTE | 2019-12-13 12:29 | General Progress Note ---
Assessment/Plan Assessment/Plan: 1. History of Parkinson disease. 2. Arthritis. 3. Dysphagia. 4. Muscle weakness. 5. FTT 6. Elevated LFTS 7. COVID PNA pending repeat swallow eval fu LFTS consider abd us peg plans on hold Subjective Allergies: Coded Allergies: No Known Allergies (Unverified , 12/11/19) Objective Last 24 Hour Vital Signs Date Time Temp Pulse Resp B/P (MAP) Pulse Ox O2 Delivery O2 Flow Rate FiO2 12/13/19 09:39 101 122/65 12/13/19 09:00 Nasal Cannula 2.0 12/13/19 08:00 100.0 101 20 122/65 (84) 94 12/13/19 04:00 98.1 98 24 120/70 (87) 91 12/13/19 00:00 102.0 107 36 118/62 (80) 90 12/12/19 21:56 102.0 12/12/19 21:00 Nasal Cannula 2.0 12/12/19 20:00 102.0 117 33 108/59 (75) 91 12/12/19 17:16 100 136/80 12/12/19 16:00 98.9 100 21 136/80 (98) 96 Intake and Output 12/12/19 12/13/19 19:00 07:00 Intake Total 831 ml Output Total 600 ml 600 ml Balance 231 ml -600 ml Intake Oral 240 ml IV Total 591 ml Output Urine Total 600 ml 600 ml # Bowel Movements 2 2 Laboratory Tests 12/12/19 17:30: Carcinoembryonic Antigen [Pending] 12/13/19 04:10: White Blood Count 9.7, Red Blood Count 5.70, Hemoglobin 17.3, Hematocrit 52.9H, Mean Corpuscular Volume 93, Mean Corpuscular Hemoglobin 30.3, Mean Corpuscular Hemoglobin Concent 32.7, Red Cell Distribution Width 12.0, Platelet Count 205, Mean Platelet Volume 5.9L, Neutrophils (%) (Auto) , Lymphocytes (%) (Auto) , Monocytes (%) (Auto) , Eosinophils (%) (Auto) , Basophils (%) (Auto) , Differential Total Cells Counted 100, Neutrophils % (Manual) 80H, Lymphocytes % (Manual) 7L, Monocytes % (Manual) 3, Eosinophils % (Manual) 0, Basophils % ( Manual) 0, Band Neutrophils 10H, Platelet Estimate Adequate, Platelet Morphology Normal, Red Blood Cell Morphology Normal, Sodium Level 147H, Potassium Level 4.0, Chloride Level 108H, Carbon Dioxide Level 27, Anion Gap 12 , Blood Urea Nitrogen 89H, Creatinine 2.3H, Estimat Glomerular Filtration Rate 34.1, Glucose Level 123H, Uric Acid 6.6, Calcium Level 9.1, Phosphorus Level 2.8 , Magnesium Level 2.9H, Total Bilirubin 1.7H, Direct Bilirubin 0.6H, Gamma Glutamyl Transpeptidase 157H, Aspartate Amino Transf (AST/SGOT) 114H, Alanine Aminotransferase (ALT/SGPT) 85H, Alkaline Phosphatase 54, Total Creatine Kinase 492H, C-Reactive Protein, Quantitative 20.1H, Pro-B-Type Natriuretic Peptide 391H, Total Protein 7.5, Albumin 2.8L, Globulin 4.7, Albumin/Globulin Ratio 0.6L , Vitamin B12 Level 1170H, Folate 17.9 Height (Feet): 6 Height (Inches): 1.00 Weight (Pounds): 170 General Appearance: no apparent distress EENT: normal ENT inspection Neck: supple Cardiovascular: normal rate Respiratory/Chest: decreased breath sounds Abdomen: normal bowel sounds, non tender, soft Extremities: non-tender Balaji Medina MD Dec 13, 2019 12:29
--- NOTE | 2019-12-13 12:46 | Diagnostic Imaging Report ---
Indication: Shortness of breath Technique: One view of the chest Comparison: none Findings: Interim development of infiltrate throughout the right mid and lower lung. There is some atelectasis at the left lung base. The pleural spaces are clear. The heart size is normal. The aorta is tortuous. Impression: Extensive infiltrate throughout the right mid and lower lung, new since prior exam of 2 days earlier, likely on the basis of pneumonia. Left basilar atelectasis
--- NOTE | 2019-12-13 13:18 | Nephrology Progress Note ---
Assessment/Plan Problem List: (1) JAYDEN (acute kidney injury) (2) Dehydration (3) Fever (4) Pneumonia due to COVID-19 virus Assessment This 74-year-old male is admitted with fever and possible COVID positive infection On presentation the patient has acute renal failure which suggests a pattern of mainly dehydration Most likely has underlying chronic kidney disease Other conditions include Parkinson's and dementia Evidence of UTI Elevated CK possible rhabdo . Plan Keep n.p.o. until evaluated by speech therapy Keep blood pressure in check IV hydration, monitor CPK and liver function tests Monitor renal parameters Fish catheter May need broad-spectrum antibiotics, defer to ID Per consultants Chest x-ray: Impression: Extensive infiltrate throughout the right mid and lower lung, new since prior exam of 2 days earlier, likely on the basis of pneumonia. Left basilar atelectasis Subjective ROS Limited/Unobtainable: No Constitutional: Reports: malaise, weakness Objective Objective Last 24 Hour Vital Signs Date Time Temp Pulse Resp B/P (MAP) Pulse Ox O2 Delivery O2 Flow Rate FiO2 12/13/19 12:00 99.9 102 24 128/73 (91) 99 12/13/19 09:39 101 122/65 12/13/19 09:00 Nasal Cannula 2.0 12/13/19 08:00 100.0 101 20 122/65 (84) 94 12/13/19 04:00 98.1 98 24 120/70 (87) 91 12/13/19 00:00 102.0 107 36 118/62 (80) 90 12/12/19 21:56 102.0 12/12/19 21:00 Nasal Cannula 2.0 12/12/19 20:00 102.0 117 33 108/59 (75) 91 12/12/19 17:16 100 136/80 12/12/19 16:00 98.9 100 21 136/80 (98) 96 Intake and Output 12/12/19 12/13/19 19:00 07:00 Intake Total 831 ml Output Total 600 ml 600 ml Balance 231 ml -600 ml Intake Oral 240 ml IV Total 591 ml Output Urine Total 600 ml 600 ml # Bowel Movements 2 2 Current Medications Medications (Trade) Dose Ordered Sig/Faby Route PRN Reason Start Time Stop Time Status Last Admin Dose Admin Acetaminophen (Tylenol) 650 mg Q4H PRN RECTAL Mild Pain / temp 12/12/19 07:45 01/11/20 07:44 12/13/19 01:37 Amantadine HCl (Symmetrel) 50 mg THREE TIMES A DAY ORAL 12/12/19 18:00 01/11/20 17:59 UNV Amlodipine Besylate (Norvasc) 5 mg BID ORAL 12/12/19 18:00 01/11/20 17:59 12/13/19 09:39 Carbidopa/Levodopa (Sinemet 10/100) 1 tab THREE TIMES A DAY ORAL 12/12/19 16:00 01/11/20 15:59 12/13/19 12:50 Ceftriaxone Sodium 1 gm/ Dextrose 55 ml @ 110 mls/hr Q24H IVPB 12/12/19 18:00 12/19/19 17:59 12/12/19 17:19 Dextrose/Sodium Chloride 1,000 ml @ 100 mls/hr Q10H IV 12/13/19 13:15 01/12/20 13:14 UNV Docusate Sodium (Colace) 100 mg THREE TIMES A DAY ORAL 12/12/19 13:00 01/11/20 12:59 12/13/19 12:50 Ondansetron HCl (Zofran) 4 mg Q6H PRN IVP Nausea & Vomiting 12/12/19 00:15 01/11/20 00:14 Pantoprazole (Protonix) 40 mg EVERY 12 HOURS IVP 12/12/19 21:00 01/11/20 20:59 12/13/19 09:39 Tamsulosin HCl (Flomax) 0.4 mg BEDTIME ORAL 12/12/19 21:00 01/11/20 20:59 Laboratory Tests 12/12/19 17:30: Carcinoembryonic Antigen [Pending] 12/13/19 04:10: White Blood Count 9.7, Red Blood Count 5.70, Hemoglobin 17.3, Hematocrit 52.9H, Mean Corpuscular Volume 93, Mean Corpuscular Hemoglobin 30.3, Mean Corpuscular Hemoglobin Concent 32.7, Red Cell Distribution Width 12.0, Platelet Count 205, Mean Platelet Volume 5.9L, Neutrophils (%) (Auto) , Lymphocytes (%) (Auto) , Monocytes (%) (Auto) , Eosinophils (%) (Auto) , Basophils (%) (Auto) , Differential Total Cells Counted 100, Neutrophils % (Manual) 80H, Lymphocytes % (Manual) 7L, Monocytes % (Manual) 3, Eosinophils % (Manual) 0, Basophils % ( Manual) 0, Band Neutrophils 10H, Platelet Estimate Adequate, Platelet Morphology Normal, Red Blood Cell Morphology Normal, Sodium Level 147H, Potassium Level 4.0, Chloride Level 108H, Carbon Dioxide Level 27, Anion Gap 12 , Blood Urea Nitrogen 89H, Creatinine 2.3H, Estimat Glomerular Filtration Rate 34.1, Glucose Level 123H, Uric Acid 6.6, Calcium Level 9.1, Phosphorus Level 2.8 , Magnesium Level 2.9H, Total Bilirubin 1.7H, Direct Bilirubin 0.6H, Gamma Glutamyl Transpeptidase 157H, Aspartate Amino Transf (AST/SGOT) 114H, Alanine Aminotransferase (ALT/SGPT) 85H, Alkaline Phosphatase 54, Total Creatine Kinase 492H, C-Reactive Protein, Quantitative 20.1H, Pro-B-Type Natriuretic Peptide 391H, Total Protein 7.5, Albumin 2.8L, Globulin 4.7, Albumin/Globulin Ratio 0.6L , Vitamin B12 Level 1170H, Folate 17.9 Height (Feet): 6 Height (Inches): 1.00 Weight (Pounds): 170 General Appearance: no apparent distress, lethargic Cardiovascular: tachycardia Respiratory/Chest: decreased breath sounds Abdomen: distended Brent Gonsales MD Dec 13, 2019 13:18
[2019-12-13] MEDS: D5 1/2NS 1,000 ML IV SCH ×2 (13:23→23:30)
[2019-12-13 16:00] VITALS: BP 127/69
--- NOTE | 2019-12-13 16:44 | General Progress Note ---
Assessment/Plan Problem List: (1) Failure to thrive SNOMED: 89505660 (2) Dehydration ICD Codes: E86.0 - Dehydration SNOMED: 88917588 (3) Fever ICD Codes: R50.9 - Fever, unspecified SNOMED: 808238296 (4) Pneumonia due to COVID-19 virus ICD Codes: U07.1 - COVID-19; J12.89 - Other viral pneumonia SNOMED: 591637975, 843250799 (5) JAYDEN (acute kidney injury) ICD Codes: N17.9 - Acute kidney failure, unspecified SNOMED: 1264649, 38484313 Status: progressing Assessment/Plan: covid positive pna resp insuff weak ftt no n/v/d vitals stable afebrile abx per ID Subjective ROS Limited/Unobtainable: Yes Allergies: Coded Allergies: No Known Allergies (Unverified , 12/11/19) Objective Last 24 Hour Vital Signs Date Time Temp Pulse Resp B/P (MAP) Pulse Ox O2 Delivery O2 Flow Rate FiO2 12/13/19 12:00 99.9 102 24 128/73 (91) 99 12/13/19 09:39 101 122/65 12/13/19 09:00 Nasal Cannula 2.0 12/13/19 08:00 100.0 101 20 122/65 (84) 94 12/13/19 04:00 98.1 98 24 120/70 (87) 91 12/13/19 00:00 102.0 107 36 118/62 (80) 90 12/12/19 21:56 102.0 12/12/19 21:00 Nasal Cannula 2.0 12/12/19 20:00 102.0 117 33 108/59 (75) 91 12/12/19 17:16 100 136/80 Intake and Output 12/12/19 12/13/19 19:00 07:00 Intake Total 831 ml Output Total 600 ml 600 ml Balance 231 ml -600 ml Intake Oral 240 ml IV Total 591 ml Output Urine Total 600 ml 600 ml # Bowel Movements 2 2 Laboratory Tests 12/12/19 17:30: Carcinoembryonic Antigen 3.2 12/13/19 04:10: White Blood Count 9.7, Red Blood Count 5.70, Hemoglobin 17.3, Hematocrit 52.9H, Mean Corpuscular Volume 93, Mean Corpuscular Hemoglobin 30.3, Mean Corpuscular Hemoglobin Concent 32.7, Red Cell Distribution Width 12.0, Platelet Count 205, Mean Platelet Volume 5.9L, Neutrophils (%) (Auto) , Lymphocytes (%) (Auto) , Monocytes (%) (Auto) , Eosinophils (%) (Auto) , Basophils (%) (Auto) , Differential Total Cells Counted 100, Neutrophils % (Manual) 80H, Lymphocytes % (Manual) 7L, Monocytes % (Manual) 3, Eosinophils % (Manual) 0, Basophils % ( Manual) 0, Band Neutrophils 10H, Platelet Estimate Adequate, Platelet Morphology Normal, Red Blood Cell Morphology Normal, Sodium Level 147H, Potassium Level 4.0, Chloride Level 108H, Carbon Dioxide Level 27, Anion Gap 12 , Blood Urea Nitrogen 89H, Creatinine 2.3H, Estimat Glomerular Filtration Rate 34.1, Glucose Level 123H, Uric Acid 6.6, Calcium Level 9.1, Phosphorus Level 2.8 , Magnesium Level 2.9H, Total Bilirubin 1.7H, Direct Bilirubin 0.6H, Gamma Glutamyl Transpeptidase 157H, Aspartate Amino Transf (AST/SGOT) 114H, Alanine Aminotransferase (ALT/SGPT) 85H, Alkaline Phosphatase 54, Total Creatine Kinase 492H, C-Reactive Protein, Quantitative 20.1H, Pro-B-Type Natriuretic Peptide 391H, Total Protein 7.5, Albumin 2.8L, Globulin 4.7, Albumin/Globulin Ratio 0.6L , Vitamin B12 Level 1170H, Folate 17.9 Height (Feet): 6 Height (Inches): 1.00 Weight (Pounds): 170 General Appearance: confused Respiratory/Chest: rhonchi - bilaterally Kevin Anderson MD Dec 13, 2019 16:44
[2019-12-13] MEDS: cefTRIAXone 1 GM in D5W 55 ML IVPB SCH (17:33)
[2019-12-13 20:00] VITALS: BP 125/65
[2019-12-14] VITALS: BP 113/65
[2019-12-14 04:00] VITALS: BP 121/75
--- NOTE | 2019-12-14 04:30 | Progress Note ---
DATE: 12/13/2019 SUBJECTIVE: The patient's tremor and jerky movement has decreased today, especially around the mouth. The patient has episodes of agitation and has been uncooperative with the due to severe cognitive impairment. MENTAL STATUS EXAMINATION: The patient is alert. Eyes closed. Poor eye contact. Mood is neutral to anxious. Affect is flat. Thought process, there is a paucity of thought content. Cognition is impaired. Insight and judgment impaired. ASSESSMENT: 1. Parkinson disease. 2. Dementia . 3. Anxiety disorder. PLAN: 1. The patient is on Sinemet. 2. Continue the cough taper. Bhavesh Fernandes M.D. DR: FRANCESCA JOB#: [id number] CC:
--- NOTE | 2019-12-14 07:02 | Pulmonology Progress Note ---
Subjective ROS Limited/Unobtainable: Yes Interval Events: None new Constitutional: Reports: fever, other - [id number] HEENT: Repors: no symptoms Respiratory: Reports: no symptoms Cardiovascular: Reports: no symptoms Gastrointestinal/Abdominal: Reports: no symptoms Genitourinary: Reports: no symptoms Allergies: Coded Allergies: No Known Allergies (Unverified , 12/11/19) Objective Last 24 Hour Vital Signs Date Time Temp Pulse Resp B/P (MAP) Pulse Ox O2 Delivery O2 Flow Rate FiO2 12/14/19 04:00 100.0 105 20 121/75 (90) 96 12/14/19 00:00 100.6 108 20 113/65 (81) 97 12/13/19 21:00 Nasal Cannula 2.0 12/13/19 20:00 102.4 109 21 125/65 (85) 95 12/13/19 17:33 102 128/73 12/13/19 16:00 99.4 100 22 127/69 (88) 97 12/13/19 12:00 99.9 102 24 128/73 (91) 99 12/13/19 09:39 101 122/65 12/13/19 09:00 Nasal Cannula 2.0 12/13/19 08:00 100.0 101 20 122/65 (84) 94 Intake and Output 12/13/19 12/14/19 19:00 07:00 Intake Total 955 ml 1000 ml Output Total 600 ml 1150 ml Balance 355 ml -150 ml Intake Oral 400 ml IV Total 555 ml 1000 ml Output Urine Total 600 ml 1150 ml # Voids 2 # Bowel Movements 2 1 General Appearance: no acute distress HEENT: normocephalic Respiratory: chest wall non-tender Cardiovascular: normal peripheral pulses Abdomen: normal bowel sounds Microbiology Date/Time Source Procedure Growth Status 12/11/19 12:15 Blood Blood Culture - Preliminary NO GROWTH AFTER 48 HOURS Resulted 12/11/19 12:10 Blood Blood Culture - Preliminary NO GROWTH AFTER 48 HOURS Resulted 12/11/19 12:55 Nasal Nares MRSA Culture - Final NO METHICILLIN RESISTANT STAPH AUREUS... Complete 12/11/19 12:10 Nasopharynx Coronavirus COVID-19 PCR (EVIE) - Final Complete 12/11/19 12:55 Rectum VRE Culture - Final NO VANCOMYCIN RESISTANT ENTEROCOCCUS ... Complete Laboratory Tests 12/14/19 06:00: White Blood Count [Pending], Red Blood Count [Pending], Hemoglobin [Pending], Hematocrit [Pending], Mean Corpuscular Volume [Pending], Mean Corpuscular Hemoglobin [Pending], Mean Corpuscular Hemoglobin Concent [Pending], Red Cell Distribution Width [Pending], Platelet Count [Pending], Mean Platelet Volume [ Pending], Neutrophils (%) (Auto) [Pending], Lymphocytes (%) (Auto) [Pending], Monocytes (%) (Auto) [Pending], Eosinophils (%) (Auto) [Pending], Basophils (%) (Auto) [Pending], Sodium Level [Pending], Potassium Level [Pending], Chloride Level [Pending], Carbon Dioxide Level [Pending], Blood Urea Nitrogen [Pending], Creatinine [Pending], Estimat Glomerular Filtration Rate [Pending], Glucose Level [Pending], Uric Acid [Pending], Calcium Level [Pending], Phosphorus Level [Pending], Magnesium Level [Pending], Total Bilirubin [Pending], Gamma Glutamyl Transpeptidase [Pending], Aspartate Amino Transf (AST/SGOT) [Pending], Alanine Aminotransferase (ALT/SGPT) [Pending], Alkaline Phosphatase [Pending], Total Creatine Kinase [Pending], Troponin I [Pending], C-Reactive Protein, Quantitative [Pending], Pro-B-Type Natriuretic Peptide [Pending], Total Protein [Pending], Albumin [Pending], Globulin [Pending] Current Medications Medications (Trade) Dose Ordered Sig/Faby Route PRN Reason Start Time Stop Time Status Last Admin Dose Admin Acetaminophen (Tylenol) 650 mg Q4H PRN RECTAL Mild Pain / temp 12/12/19 07:45 01/11/20 07:44 12/13/19 01:37 Amantadine HCl (Symmetrel) 50 mg THREE TIMES A DAY ORAL 12/12/19 18:00 01/11/20 17:59 UNV Amlodipine Besylate (Norvasc) 5 mg BID ORAL 12/12/19 18:00 01/11/20 17:59 12/13/19 17:33 Carbidopa/Levodopa (Sinemet 10/) 1 tab THREE TIMES A DAY ORAL 12/12/19 16:00 7/11/20 15:59 12/13/19 17:33 Ceftriaxone Sodium 1 gm/ Dextrose 55 ml @ 110 mls/hr Q24H IVPB 12/12/19 18:00 12/19/19 17:59 12/13/19 17:33 Dextrose/Sodium Chloride 1,000 ml @ 100 mls/hr Q10H IV 12/13/19 13:15 01/12/20 13:14 12/13/19 23:30 Docusate Sodium (Colace) 100 mg THREE TIMES A DAY ORAL 12/12/19 13:00 01/11/20 12:59 12/13/19 17:33 Ondansetron HCl (Zofran) 4 mg Q6H PRN IVP Nausea & Vomiting 12/12/19 00:15 01/11/20 00:14 Pantoprazole (Protonix) 40 mg EVERY 12 HOURS IVP 12/12/19 21:00 01/11/20 20:59 12/13/19 21:26 Assessment/Plan Assessment/Plan IMPRESSION: 1. COVID-19 pneumonia. 2. Parkinson's and dementia. 3. Transaminitis. DISCUSSION: The patient's x-ray is clear with some chronic-appearing changes, currently saturating well on nasal oxygen. I will follow as rand sewer. Ordered oxygen and pulmonary hygiene. Defer antibiotic use to ID specialist. Dhara Barrios Omar Syed MD Dec 14, 2019 07:02
[2019-12-14 07:21] LABS: HEMATOCRIT 49.5 % (42.0-52.0); HEMOGLOBIN 16.1 G/DL (14.2-18.0); MEAN CORPUSCULAR VOLUME 92 FL (80-99); PLATELET COUNT 159 K/UL (150-450); RED BLOOD COUNT 5.36 M/UL (4.70-6.10); RED CELL DISTRIBUTION WIDTH 11.8 % (11.6-14.8); WHITE BLOOD COUNT 7.7 K/UL (4.8-10.8)
[2019-12-14 07:39] LABS: ALANINE AMINOTRANSFERASE 64 U/L (12-78); ALBUMIN 2.5 G/DL (3.4-5.0); ALBUMIN/GLOBULIN RATIO 0.5 (1.0-2.7); ALKALINE PHOSPHATASE 51 U/L (46-116); ANION GAP 7 mmol/L (5-15); ASPARTATE AMINO TRANSFERASE 66 U/L (15-37); BILIRUBIN,TOTAL 1.5 MG/DL (0.2-1.0); BLOOD UREA NITROGEN 66 mg/dL (7-18); CALCIUM 9.1 MG/DL (8.5-10.1); CARBON DIOXIDE 29 MMOL/L (21-32); CHLORIDE 111 MMOL/L (98-107); CREATINE KINASE 307 U/L (26-308); CREATININE 1.6 MG/DL (0.55-1.30); GAMMA GLUTAMYL TRANSPEPTIDASE 120 U/L (5-85); PHOSPHORUS 2.5 MG/DL (2.5-4.9); POTASSIUM 3.9 MMOL/L (3.5-5.1); SODIUM 147 MMOL/L (136-145)
[2019-12-14 07:58] LABS: BILIRUBIN,DIRECT 0.7 MG/DL (0.0-0.3)
[2019-12-14 08:00] VITALS: BP 124/77
[2019-12-14] MEDS: Pantoprazole Inj IVP SCH ×2 (08:56→21:32)
[2019-12-14] MEDS: Levodopa/Carbidopa 10/100 tab ORAL SCH (08:56)
[2019-12-14] MEDS: Docusate 100mg cap ORAL SCH ×3 (08:56→18:00)
[2019-12-14] MEDS: D5 1/2NS 1,000 ML IV SCH ×2 (08:57→18:53)
--- NOTE | 2019-12-14 09:27 | General Progress Note ---
Assessment/Plan Problem List: (1) Failure to thrive SNOMED: 08100451 (2) Dehydration ICD Codes: E86.0 - Dehydration SNOMED: 09743686 (3) Fever ICD Codes: R50.9 - Fever, unspecified SNOMED: 086296107 (4) Pneumonia due to COVID-19 virus ICD Codes: U07.1 - COVID-19; J12.89 - Other viral pneumonia SNOMED: 850193999, 130618763 (5) JAYDEN (acute kidney injury) ICD Codes: N17.9 - Acute kidney failure, unspecified SNOMED: 8372136, 28886875 Status: progressing Assessment/Plan: covid positive pna resp insuff weak ftt prn oxygen and supportive rx elevated lft azotemia is improving abx per ID Subjective ROS Limited/Unobtainable: Yes Allergies: Coded Allergies: No Known Allergies (Unverified , 12/11/19) Objective Last 24 Hour Vital Signs Date Time Temp Pulse Resp B/P (MAP) Pulse Ox O2 Delivery O2 Flow Rate FiO2 12/14/19 08:56 105 124/77 12/14/19 08:00 100.9 105 22 124/77 (93) 94 12/14/19 04:00 100.0 105 20 121/75 (90) 96 12/14/19 00:00 100.6 108 20 113/65 (81) 97 12/13/19 21:00 Nasal Cannula 2.0 12/13/19 20:00 102.4 109 21 125/65 (85) 95 12/13/19 17:33 102 128/73 12/13/19 16:00 99.4 100 22 127/69 (88) 97 12/13/19 12:00 99.9 102 24 128/73 (91) 99 12/13/19 09:39 101 122/65 Intake and Output 12/13/19 12/14/19 19:00 07:00 Intake Total 955 ml 1000 ml Output Total 600 ml 1150 ml Balance 355 ml -150 ml Intake Oral 400 ml IV Total 555 ml 1000 ml Output Urine Total 600 ml 1150 ml # Voids 2 # Bowel Movements 2 1 Laboratory Tests 12/14/19 06:00: White Blood Count 7.7, Red Blood Count 5.36, Hemoglobin 16.1, Hematocrit 49.5, Mean Corpuscular Volume 92, Mean Corpuscular Hemoglobin 30.1, Mean Corpuscular Hemoglobin Concent 32.6, Red Cell Distribution Width 11.8, Platelet Count 159, Mean Platelet Volume 7.2, Neutrophils (%) (Auto) , Lymphocytes (%) (Auto) , Monocytes (%) (Auto) , Eosinophils (%) (Auto) , Basophils (%) (Auto) , Neutrophils % (Manual) [Pending], Lymphocytes % (Manual) [Pending], Platelet Estimate [Pending], Platelet Morphology [Pending], Sodium Level 147H, Potassium Level 3.9, Chloride Level 111H, Carbon Dioxide Level 29, Anion Gap 7, Blood Urea Nitrogen 66H, Creatinine 1.6H, Estimat Glomerular Filtration Rate 51.8, Glucose Level 143H, Uric Acid 5.5, Calcium Level 9.1, Phosphorus Level 2.5, Magnesium Level 3.2H, Total Bilirubin 1.5H, Direct Bilirubin 0.7H, Gamma Glutamyl Transpeptidase 120H, Aspartate Amino Transf (AST/SGOT) 66H, Alanine Aminotransferase (ALT/SGPT) 64, Alkaline Phosphatase 51, Total Creatine Kinase 307, Troponin I 0.038, C-Reactive Protein, Quantitative 26.3H, Pro-B-Type Natriuretic Peptide 110, Total Protein 7.2, Albumin 2.5L, Globulin 4.7, Albumin/ Globulin Ratio 0.5L 12/14/19 06:30: Urine Random Sodium < 20L Height (Feet): 6 Height (Inches): 1.00 Weight (Pounds): 170 Kevin Anderson MD Dec 14, 2019 09:27
--- NOTE | 2019-12-14 10:22 | Diagnostic Imaging Report ---
EXAM: US Retroperitoneal Complete, Renal CLINICAL HISTORY: RENAL-A TECHNIQUE: Real-time complete ultrasound of the retroperitoneum with image documentation. COMPARISON: No relevant prior studies available. FINDINGS: Right kidney: 1.4 cm right renal anechoic cyst. Right kidney measures 10.7 x 5.2 x 6.2 cm. No hydronephrosis. No stones. Left kidney: Left kidney not visualized. Unstable patient. Bladder: Unremarkable as visualized. IMPRESSION: 1. 1.4 cm right renal anechoic cyst. No hydronephrosis or echogenic stones. 2. Left kidney not visualized. Unstable patient.
--- NOTE | 2019-12-14 10:35 | Nephrology Progress Note ---
Assessment/Plan Problem List: (1) JAYDEN (acute kidney injury) (2) Dehydration (3) Fever (4) Pneumonia due to COVID-19 virus Assessment This 74-year-old male is admitted with fever and possible COVID positive infection On presentation the patient has acute renal failure which suggests a pattern of mainly dehydration Most likely has underlying chronic kidney disease Other conditions include Parkinson's and dementia Evidence of UTI Elevated CK possible rhabdo . Plan Remains n.p.o. pending GI advice Keep blood pressure in check IV hydration, monitor CPK and liver function tests. Renal parameters improving. Monitor renal parameters Fish catheter May need broad-spectrum antibiotics, defer to ID Per consultants Chest x-ray: Impression: Extensive infiltrate throughout the right mid and lower lung, new since prior exam of 2 days earlier, likely on the basis of pneumonia. Left basilar atelectasis Subjective ROS Limited/Unobtainable: No Constitutional: Reports: malaise, weakness Objective Objective Last 24 Hour Vital Signs Date Time Temp Pulse Resp B/P (MAP) Pulse Ox O2 Delivery O2 Flow Rate FiO2 12/14/19 08:56 105 124/77 12/14/19 08:00 100.9 105 22 124/77 (93) 94 12/14/19 04:00 100.0 105 20 121/75 (90) 96 12/14/19 00:00 100.6 108 20 113/65 (81) 97 12/13/19 21:00 Nasal Cannula 2.0 12/13/19 20:00 102.4 109 21 125/65 (85) 95 12/13/19 17:33 102 128/73 12/13/19 16:00 99.4 100 22 127/69 (88) 97 12/13/19 12:00 99.9 102 24 128/73 (91) 99 Intake and Output 12/13/19 12/14/19 19:00 07:00 Intake Total 955 ml 1000 ml Output Total 600 ml 1150 ml Balance 355 ml -150 ml Intake Oral 400 ml IV Total 555 ml 1000 ml Output Urine Total 600 ml 1150 ml # Voids 2 # Bowel Movements 2 1 Laboratory Tests 12/14/19 06:00: White Blood Count 7.7, Red Blood Count 5.36, Hemoglobin 16.1, Hematocrit 49.5, Mean Corpuscular Volume 92, Mean Corpuscular Hemoglobin 30.1, Mean Corpuscular Hemoglobin Concent 32.6, Red Cell Distribution Width 11.8, Platelet Count 159, Mean Platelet Volume 7.2, Neutrophils (%) (Auto) , Lymphocytes (%) (Auto) , Monocytes (%) (Auto) , Eosinophils (%) (Auto) , Basophils (%) (Auto) , Neutrophils % (Manual) [Pending], Lymphocytes % (Manual) [Pending], Platelet Estimate [Pending], Platelet Morphology [Pending], Sodium Level 147H, Potassium Level 3.9, Chloride Level 111H, Carbon Dioxide Level 29, Anion Gap 7, Blood Urea Nitrogen 66H, Creatinine 1.6H, Estimat Glomerular Filtration Rate 51.8, Glucose Level 143H, Uric Acid 5.5, Calcium Level 9.1, Phosphorus Level 2.5, Magnesium Level 3.2H, Total Bilirubin 1.5H, Direct Bilirubin 0.7H, Gamma Glutamyl Transpeptidase 120H, Aspartate Amino Transf (AST/SGOT) 66H, Alanine Aminotransferase (ALT/SGPT) 64, Alkaline Phosphatase 51, Total Creatine Kinase 307, Troponin I 0.038, C-Reactive Protein, Quantitative 26.3H, Pro-B-Type Natriuretic Peptide 110, Total Protein 7.2, Albumin 2.5L, Globulin 4.7, Albumin/ Globulin Ratio 0.5L 12/14/19 06:30: Urine Random Sodium < 20L Height (Feet): 6 Height (Inches): 1.00 Weight (Pounds): 170 General Appearance: no apparent distress Cardiovascular: tachycardia Respiratory/Chest: decreased breath sounds Abdomen: distended Genitourinary/Rectal: other - Fish catheter in place Brent Gonsales MD Dec 14, 2019 10:35
[2019-12-14 11:30] VITALS: BP 119/76
--- NOTE | 2019-12-14 11:34 | General Progress Note ---
Assessment/Plan Status: progressing Assessment/Plan: 1. History of Parkinson disease. 2. Arthritis. 3. Dysphagia. 4. Muscle weakness. 5. FTT 6. Elevated LFTS 7. COVID PNA NGT NGTF fu LFTS consider abd us peg plans on hold Subjective ROS Limited/Unobtainable: No Allergies: Coded Allergies: No Known Allergies (Unverified , 12/11/19) Objective Last 24 Hour Vital Signs Date Time Temp Pulse Resp B/P (MAP) Pulse Ox O2 Delivery O2 Flow Rate FiO2 12/14/19 08:56 105 124/77 12/14/19 08:00 100.9 105 22 124/77 (93) 94 12/14/19 04:00 100.0 105 20 121/75 (90) 96 12/14/19 00:00 100.6 108 20 113/65 (81) 97 12/13/19 21:00 Nasal Cannula 2.0 12/13/19 20:00 102.4 109 21 125/65 (85) 95 12/13/19 17:33 102 128/73 12/13/19 16:00 99.4 100 22 127/69 (88) 97 12/13/19 12:00 99.9 102 24 128/73 (91) 99 Intake and Output 12/13/19 12/14/19 19:00 07:00 Intake Total 955 ml 1000 ml Output Total 600 ml 1150 ml Balance 355 ml -150 ml Intake Oral 400 ml IV Total 555 ml 1000 ml Output Urine Total 600 ml 1150 ml # Voids 2 # Bowel Movements 2 1 Laboratory Tests 12/14/19 06:00: White Blood Count 7.7, Red Blood Count 5.36, Hemoglobin 16.1, Hematocrit 49.5, Mean Corpuscular Volume 92, Mean Corpuscular Hemoglobin 30.1, Mean Corpuscular Hemoglobin Concent 32.6, Red Cell Distribution Width 11.8, Platelet Count 159, Mean Platelet Volume 7.2, Neutrophils (%) (Auto) , Lymphocytes (%) (Auto) , Monocytes (%) (Auto) , Eosinophils (%) (Auto) , Basophils (%) (Auto) , Differential Total Cells Counted 100, Neutrophils % (Manual) 91H, Lymphocytes % (Manual) 8L, Monocytes % (Manual) 1, Eosinophils % (Manual) 0, Basophils % ( Manual) 0, Band Neutrophils 0, Platelet Estimate Adequate, Platelet Morphology Normal, Red Blood Cell Morphology Normal, Sodium Level 147H, Potassium Level 3.9 , Chloride Level 111H, Carbon Dioxide Level 29, Anion Gap 7, Blood Urea Nitrogen 66H, Creatinine 1.6H, Estimat Glomerular Filtration Rate 51.8, Glucose Level 143H, Uric Acid 5.5, Calcium Level 9.1, Phosphorus Level 2.5, Magnesium Level 3.2H, Total Bilirubin 1.5H, Direct Bilirubin 0.7H, Gamma Glutamyl Transpeptidase 120H, Aspartate Amino Transf (AST/SGOT) 66H, Alanine Aminotransferase (ALT/SGPT) 64, Alkaline Phosphatase 51, Total Creatine Kinase 307, Troponin I 0.038, C-Reactive Protein, Quantitative 26.3H, Pro-B-Type Natriuretic Peptide 110, Total Protein 7.2, Albumin 2.5L, Globulin 4.7, Albumin/ Globulin Ratio 0.5L 12/14/19 06:30: Urine Random Sodium < 20L Height (Feet): 6 Height (Inches): 1.00 Weight (Pounds): 170 General Appearance: no apparent distress EENT: PERRL/EOMI Neck: supple Cardiovascular: normal rate Respiratory/Chest: decreased breath sounds Abdomen: normal bowel sounds, non tender, soft Extremities: non-tender Balaji Medina MD Dec 14, 2019 11:34
[2019-12-14] MEDS: Levodopa/Carbidopa 25/100 tab ORAL SCH ×2 (13:00→18:48)
--- NOTE | 2019-12-14 15:53 | Cardiac Electrophysiology PN ---
Assessment/Plan Assessment/Plan 1. Sinus tachycardia due to dehydration and sepsis Ruled out for NV 2. Sepsis. Patient is on IV antibiotic per ID. 3. Rhabdomyolysis and renal failure with creatinine of 2.3, improved to 1.7. FU Dr. Gonsales. 4. Parkinson disease and dementia. Subjective Subjective No new events. Covid positive from 12/11. Objective Last 24 Hour Vital Signs Date Time Temp Pulse Resp B/P (MAP) Pulse Ox O2 Delivery O2 Flow Rate FiO2 12/14/19 13:40 Nasal Cannula 2.0 12/14/19 13:00 Nasal Cannula 2.0 12/14/19 11:40 99.0 12/14/19 11:30 99.0 100 22 119/76 (90) 94 12/14/19 09:00 Nasal Cannula 2.0 12/14/19 08:56 105 124/77 12/14/19 08:00 100.9 105 22 124/77 (93) 94 12/14/19 04:00 100.0 105 20 121/75 (90) 96 12/14/19 00:00 100.6 108 20 113/65 (81) 97 12/13/19 21:00 Nasal Cannula 2.0 12/13/19 20:00 102.4 109 21 125/65 (85) 95 12/13/19 17:33 102 128/73 12/13/19 16:00 99.4 100 22 127/69 (88) 97 Intake and Output 12/13/19 12/14/19 19:00 07:00 Intake Total 955 ml 1000 ml Output Total 600 ml 1150 ml Balance 355 ml -150 ml Intake Oral 400 ml IV Total 555 ml 1000 ml Output Urine Total 600 ml 1150 ml # Voids 2 # Bowel Movements 2 1 Laboratory Tests Test 12/14/19 06:00 12/14/19 06:30 White Blood Count 7.7 K/UL (4.8-10.8) Red Blood Count 5.36 M/UL (4.70-6.10) Hemoglobin 16.1 G/DL (14.2-18.0) Hematocrit 49.5 % (42.0-52.0) Mean Corpuscular Volume 92 FL (80-99) Mean Corpuscular Hemoglobin 30.1 PG (27.0-31.0) Mean Corpuscular Hemoglobin Concent 32.6 G/DL (32.0-36.0) Red Cell Distribution Width 11.8 % (11.6-14.8) Platelet Count 159 K/UL (150-450) Mean Platelet Volume 7.2 FL (6.5-10.1) Neutrophils (%) (Auto) % (45.0-75.0) Lymphocytes (%) (Auto) % (20.0-45.0) Monocytes (%) (Auto) % (1.0-10.0) Eosinophils (%) (Auto) % (0.0-3.0) Basophils (%) (Auto) % (0.0-2.0) Differential Total Cells Counted 100 Neutrophils % (Manual) 91 % (45-75) H Lymphocytes % (Manual) 8 % (20-45) L Monocytes % (Manual) 1 % (1-10) Eosinophils % (Manual) 0 % (0-3) Basophils % (Manual) 0 % (0-2) Band Neutrophils 0 % (0-8) Platelet Estimate Adequate Platelet Morphology Normal Red Blood Cell Morphology Normal Sodium Level 147 MMOL/L (136-145) H Potassium Level 3.9 MMOL/L (3.5-5.1) Chloride Level 111 MMOL/L (98-107) H Carbon Dioxide Level 29 MMOL/L (21-32) Anion Gap 7 mmol/L (5-15) Blood Urea Nitrogen 66 mg/dL (7-18) H Creatinine 1.6 MG/DL (0.55-1.30) H Estimat Glomerular Filtration Rate 51.8 mL/min (>60) Glucose Level 143 MG/DL (74-106) H Uric Acid 5.5 MG/DL (2.6-7.2) Calcium Level 9.1 MG/DL (8.5-10.1) Phosphorus Level 2.5 MG/DL (2.5-4.9) Magnesium Level 3.2 MG/DL (1.8-2.4) H Total Bilirubin 1.5 MG/DL (0.2-1.0) H Direct Bilirubin 0.7 MG/DL (0.0-0.3) H Gamma Glutamyl Transpeptidase 120 U/L (5-85) H Aspartate Amino Transf (AST/SGOT) 66 U/L (15-37) H Alanine Aminotransferase (ALT/SGPT) 64 U/L (12-78) Alkaline Phosphatase 51 U/L (46-116) Total Creatine Kinase 307 U/L (26-308) Troponin I 0.038 ng/mL (0.000-0.056) C-Reactive Protein, Quantitative 26.3 mg/dL (0.00-0.90) H Pro-B-Type Natriuretic Peptide 110 pg/mL (0-125) Total Protein 7.2 G/DL (6.4-8.2) Albumin 2.5 G/DL (3.4-5.0) L Globulin 4.7 g/dL Albumin/Globulin Ratio 0.5 (1.0-2.7) L Urine Random Sodium < 20 mmol/L (20-110) L Objective HEAD AND NECK: no JVD. LUNGS: Coarse rhonchi. CARDIOVASCULAR: Shows regular S1 and S2 with no gallop or murmur. Tachycardic. ABDOMEN: Soft. EXTREMITIES: No pitting edema. Luis Daniel Harding MD Dec 14, 2019 15:53
[2019-12-14 16:00] VITALS: BP 125/63
--- NOTE | 2019-12-14 16:04 | Diagnostic Imaging Report ---
EXAM: XR Abdomen, 2 Views CLINICAL HISTORY: NGT TECHNIQUE: Frontal view of the abdomen/pelvis with upright view of the abdomen. COMPARISON: No relevant prior studies available. FINDINGS: Lower thorax: Mild interstitial prominence of the lungs. Intraperitoneal space: No free air. Gastrointestinal tract: Gassy dilated bowel in the abdomen, worrisome for ileus versus bowel obstruction. Bones/joints: Unremarkable. Tubes, lines and devices: NG tube is into the right mainstem bronchus, tip in the right lower lobe of the lung. IMPRESSION: 1. NG tube is into the right mainstem bronchus, tip in the right lower lobe of the lung. Needs to be removed and repositioned. 2. Mild interstitial prominence of the lungs. 3. Gassy dilated bowel in the abdomen, worrisome for ileus versus bowel obstruction. <MYCVCSECTION> Communications: 12/14/19 16:09 Call Nurse 4E CECILY Nolan on 12/13 16:09 (-07:00)
--- NOTE | 2019-12-14 17:38 | Diagnostic Imaging Report ---
EXAM: XR Abdomen, 2 Views CLINICAL HISTORY: NGT TECHNIQUE: Frontal view of the abdomen/pelvis with upright view of the abdomen. COMPARISON: 12/14/2019 at 2:42 PM FINDINGS: Lower thorax: Esophagogastric tube terminates in the gastric fundus. Intraperitoneal space: No free air. Gastrointestinal tract: Diffuse gaseous distention of the bowel. Bones/joints: Unremarkable. IMPRESSION: 1. Esophagogastric tube terminates in the gastric fundus. 2. Diffuse gaseous distention of the bowel.
[2019-12-14] MEDS: cefTRIAXone 1 GM in D5W 55 ML IVPB SCH (18:47)
[2019-12-14 20:00] VITALS: BP 126/74
[2019-12-15] VITALS (8 sets, daily range): BP systolic 106–133; BP diastolic 9–83
[2019-12-15] MEDS: D5 1/2NS 1,000 ML IV SCH (05:38)
[2019-12-15 05:50] LABS: HEMATOCRIT 48.3 % (42.0-52.0); HEMOGLOBIN 15.2 G/DL (14.2-18.0); MEAN CORPUSCULAR VOLUME 95 FL (80-99); PLATELET COUNT 222 K/UL (150-450); RED BLOOD COUNT 5.06 M/UL (4.70-6.10); RED CELL DISTRIBUTION WIDTH 13.6 % (11.6-14.8); WHITE BLOOD COUNT 7.4 K/UL (4.8-10.8)
[2019-12-15 06:34] LABS: ALANINE AMINOTRANSFERASE 50 U/L (12-78); ALBUMIN 2.3 G/DL (3.4-5.0); ALBUMIN/GLOBULIN RATIO 0.5 (1.0-2.7); ALKALINE PHOSPHATASE 51 U/L (46-116); ANION GAP 9 mmol/L (5-15); ASPARTATE AMINO TRANSFERASE 79 U/L (15-37); BILIRUBIN,TOTAL 1.3 MG/DL (0.2-1.0); BLOOD UREA NITROGEN 52 mg/dL (7-18); CALCIUM 8.5 MG/DL (8.5-10.1); CARBON DIOXIDE 28 MMOL/L (21-32); CHLORIDE 113 MMOL/L (98-107); CREATINE KINASE 352 U/L (26-308); CREATININE 1.3 MG/DL (0.55-1.30); PHOSPHORUS 2.4 MG/DL (2.5-4.9); POTASSIUM 4.1 MMOL/L (3.5-5.1); SODIUM 150 MMOL/L (136-145)
[2019-12-15 06:35] LABS: BILIRUBIN,DIRECT 0.7 MG/DL (0.0-0.3)
[2019-12-15] MEDS: Levodopa/Carbidopa 25/100 tab ORAL SCH ×3 (08:30→18:13)
[2019-12-15] MEDS: Docusate 100mg cap ORAL SCH ×3 (08:30→18:13)
[2019-12-15] MEDS: Pantoprazole Inj IVP SCH ×2 (08:31→21:26)
--- NOTE | 2019-12-15 08:32 | General Progress Note ---
Assessment/Plan Status: progressing Assessment/Plan: 1. History of Parkinson disease. 2. Arthritis. 3. Dysphagia. 4. Muscle weakness. 5. FTT 6. Elevated LFTS 7. COVID PNA NGT NGTF fu LFTS consider abd us may need PEG Subjective ROS Limited/Unobtainable: No Allergies: Coded Allergies: No Known Allergies (Unverified , 12/11/19) Objective Last 24 Hour Vital Signs Date Time Temp Pulse Resp B/P (MAP) Pulse Ox O2 Delivery O2 Flow Rate FiO2 12/15/19 08:00 98.1 102 19 123/70 (87) 93 12/15/19 04:00 98.7 103 20 106/50 (68) 94 12/15/19 00:00 98.4 103 20 126/71 (89) 94 12/14/19 21:00 Nasal Cannula 2.0 12/14/19 20:00 98.5 104 20 126/74 (91) 94 12/14/19 18:48 112 125/63 12/14/19 16:00 99.1 112 22 125/63 (83) 94 12/14/19 13:40 Nasal Cannula 2.0 12/14/19 13:00 Nasal Cannula 2.0 12/14/19 11:40 99.0 12/14/19 11:30 99.0 100 22 119/76 (90) 94 12/14/19 09:00 Nasal Cannula 2.0 12/14/19 08:56 105 124/77 Intake and Output 12/14/19 12/15/19 19:00 07:00 Intake Total 1100 ml 1940 ml Output Total 500 ml 700 ml Balance 600 ml 1240 ml Free Water 100 ml 200 ml IV Total 1000 ml 1200 ml Tube Feeding 540 ml Output Urine Total 500 ml 700 ml # Voids 1 Laboratory Tests 12/15/19 02:40: White Blood Count 7.4, Red Blood Count 5.06, Hemoglobin 15.2, Hematocrit 48.3, Mean Corpuscular Volume 95, Mean Corpuscular Hemoglobin 30.1, Mean Corpuscular Hemoglobin Concent 31.5L, Red Cell Distribution Width 13.6, Platelet Count 222, Mean Platelet Volume 7.1, Neutrophils (%) (Auto) , Lymphocytes (%) (Auto) , Monocytes (%) (Auto) , Eosinophils (%) (Auto) , Basophils (%) (Auto) , Differential Total Cells Counted 100, Neutrophils % (Manual) 89H, Lymphocytes % (Manual) 8L, Monocytes % (Manual) 3, Eosinophils % (Manual) 0, Basophils % ( Manual) 0, Band Neutrophils 0, Platelet Estimate Adequate, Platelet Morphology Normal, Red Blood Cell Morphology Normal, Sodium Level 150H, Potassium Level 4.1 , Chloride Level 113H, Carbon Dioxide Level 28, Anion Gap 9, Blood Urea Nitrogen 52H, Creatinine 1.3, Estimat Glomerular Filtration Rate > 60, Glucose Level 148H, Uric Acid 4.6, Calcium Level 8.5, Phosphorus Level 2.4L, Magnesium Level 2.8H, Total Bilirubin 1.3H, Direct Bilirubin 0.7H, Aspartate Amino Transf (AST/SGOT) 79H, Alanine Aminotransferase (ALT/SGPT) 50, Alkaline Phosphatase 51 , Total Creatine Kinase 352H, C-Reactive Protein, Quantitative 31.5H, Pro-B- Type Natriuretic Peptide 105, Total Protein 7.0, Albumin 2.3L, Globulin 4.7, Albumin/Globulin Ratio 0.5L Height (Feet): 6 Height (Inches): 1.00 Weight (Pounds): 170 General Appearance: alert EENT: normal ENT inspection Neck: supple Cardiovascular: normal rate Respiratory/Chest: decreased breath sounds Abdomen: normal bowel sounds, non tender, soft Extremities: non-tender Balaji Medina MD Dec 15, 2019 08:32
--- NOTE | 2019-12-15 10:42 | Nephrology Progress Note ---
Assessment/Plan Problem List: (1) JAYDEN (acute kidney injury) (2) Dehydration (3) Fever (4) Pneumonia due to COVID-19 virus Assessment This 74-year-old male is admitted with fever and possible COVID positive infection On presentation the patient has acute renal failure which suggests a pattern of mainly dehydration Most likely has underlying chronic kidney disease Other conditions include Parkinson's and dementia Evidence of UTI Elevated CK possible rhabdo . Plan December 14: NGT in place however feeding on hold due to his high residual. Patient is slightly tachypneic. ABG noted. Chest x-ray pending. Patient remains on Rocephin. Patient is DNR. Will change IV to D5W 50 cc an hour while feeding is on hold. Will discuss with the consultants as the patient may need a more broader spectrum antibiotics. Reglan intravenously initiated. Patient is stable from renal standpoint of view. Previously: Remains n.p.o. pending GI advice Keep blood pressure in check IV hydration, monitor CPK and liver function tests. Renal parameters improving. Monitor renal parameters Fish catheter May need broad-spectrum antibiotics, defer to ID Per consultants Chest x-ray: Impression: Extensive infiltrate throughout the right mid and lower lung, new since prior exam of 2 days earlier, likely on the basis of pneumonia. Left basilar atelectasis Subjective ROS Limited/Unobtainable: Yes Objective Objective Last 24 Hour Vital Signs Date Time Temp Pulse Resp B/P (MAP) Pulse Ox O2 Delivery O2 Flow Rate FiO2 12/15/19 09:40 98.2 95 40 117/60 (79) 94 12/15/19 09:30 98.1 102 42 123/70 (87) 92 12/15/19 08:31 102 123/70 12/15/19 08:00 98.1 102 19 123/70 (87) 93 12/15/19 04:00 98.7 103 20 106/50 (68) 94 12/15/19 00:00 98.4 103 20 126/71 (89) 94 12/14/19 21:00 Nasal Cannula 2.0 12/14/19 20:00 98.5 104 20 126/74 (91) 94 12/14/19 18:48 112 125/63 12/14/19 16:00 99.1 112 22 125/63 (83) 94 12/14/19 13:40 Nasal Cannula 2.0 12/14/19 13:00 Nasal Cannula 2.0 12/14/19 11:40 99.0 12/14/19 11:30 99.0 100 22 119/76 (90) 94 Intake and Output 12/14/19 12/15/19 19:00 07:00 Intake Total 1100 ml 1940 ml Output Total 500 ml 700 ml Balance 600 ml 1240 ml Free Water 100 ml 200 ml IV Total 1000 ml 1200 ml Tube Feeding 540 ml Output Urine Total 500 ml 700 ml # Voids 1 Laboratory Tests 12/15/19 02:40: White Blood Count 7.4, Red Blood Count 5.06, Hemoglobin 15.2, Hematocrit 48.3, Mean Corpuscular Volume 95, Mean Corpuscular Hemoglobin 30.1, Mean Corpuscular Hemoglobin Concent 31.5L, Red Cell Distribution Width 13.6, Platelet Count 222, Mean Platelet Volume 7.1, Neutrophils (%) (Auto) , Lymphocytes (%) (Auto) , Monocytes (%) (Auto) , Eosinophils (%) (Auto) , Basophils (%) (Auto) , Differential Total Cells Counted 100, Neutrophils % (Manual) 89H, Lymphocytes % (Manual) 8L, Monocytes % (Manual) 3, Eosinophils % (Manual) 0, Basophils % ( Manual) 0, Band Neutrophils 0, Platelet Estimate Adequate, Platelet Morphology Normal, Red Blood Cell Morphology Normal, Sodium Level 150H, Potassium Level 4.1 , Chloride Level 113H, Carbon Dioxide Level 28, Anion Gap 9, Blood Urea Nitrogen 52H, Creatinine 1.3, Estimat Glomerular Filtration Rate > 60, Glucose Level 148H, Uric Acid 4.6, Calcium Level 8.5, Phosphorus Level 2.4L, Magnesium Level 2.8H, Total Bilirubin 1.3H, Direct Bilirubin 0.7H, Aspartate Amino Transf (AST/SGOT) 79H, Alanine Aminotransferase (ALT/SGPT) 50, Alkaline Phosphatase 51 , Total Creatine Kinase 352H, C-Reactive Protein, Quantitative 31.5H, Pro-B- Type Natriuretic Peptide 105, Total Protein 7.0, Albumin 2.3L, Globulin 4.7, Albumin/Globulin Ratio 0.5L 12/15/19 09:50: Arterial Blood pH 7.456H, Arterial Blood Partial Pressure CO2 35.4, Arterial Blood Partial Pressure O2 62.0L, Arterial Blood HCO3 24.4, Arterial Blood Oxygen Saturation 92.4L, Arterial Blood Base Excess 1.0, Tashi Test Positive Height (Feet): 6 Height (Inches): 1.00 Weight (Pounds): 170 General Appearance: no apparent distress EENT: other Cardiovascular: tachycardia Respiratory/Chest: decreased breath sounds Abdomen: distended Brent Gonsales MD Dec 15, 2019 10:42
[2019-12-15] MEDS ORDERED: Metoclopramide 10mg/2ml Inj IVP SCH (10:45)
[2019-12-15] MEDS ORDERED: Metoclopramide 10mg/2ml Inj IVP PRN (10:45)
--- NOTE | 2019-12-15 11:29 | Diagnostic Imaging Report ---
EXAM: XR Chest, 1 View CLINICAL HISTORY: TACHYPNEA TECHNIQUE: Frontal view of the chest. COMPARISON: Chest radiograph on 12/13/2019 FINDINGS: Hardware: Enteric tube terminates in the region of the stomach. Lungs/pleura: Right greater than left bibasilar opacities which may represent atelectasis versus pneumonia. This is decreased on the right and increased on the left compared to prior exam. Possible small bilateral pleural effusions. Heart/mediastinum: Borderline size of the cardiac silhouette. Atherosclerotic calcifications of the aorta. Soft tissues: Unremarkable. Bones: No acute fracture. Upper abdomen: Normal. IMPRESSION: Right greater than left pleural effusions which may represent atelectasis versus pneumonia. Possible small bilateral pleural effusions. Enteric tube terminates in the region of the stomach.
--- NOTE | 2019-12-15 12:43 | Pulmonology Progress Note ---
Subjective ROS Limited/Unobtainable: Yes Interval Events: Saturating well on nasal O2; AGB shows resp alkalosis Constitutional: Reports: fever, other - [id number] HEENT: Repors: no symptoms Respiratory: Reports: no symptoms Cardiovascular: Reports: no symptoms Gastrointestinal/Abdominal: Reports: no symptoms Genitourinary: Reports: no symptoms Allergies: Coded Allergies: No Known Allergies (Unverified , 12/11/19) Objective Last 24 Hour Vital Signs Date Time Temp Pulse Resp B/P (MAP) Pulse Ox O2 Delivery O2 Flow Rate FiO2 12/15/19 12:00 100.9 101 41 130/65 (86) 93 12/15/19 09:40 98.2 95 40 117/60 (79) 94 12/15/19 09:30 98.1 102 42 123/70 (87) 92 12/15/19 09:00 Nasal Cannula 2.0 12/15/19 08:31 102 123/70 12/15/19 08:00 98.1 102 19 123/70 (87) 93 12/15/19 04:00 98.7 103 20 106/50 (68) 94 12/15/19 00:00 98.4 103 20 126/71 (89) 94 12/14/19 21:00 Nasal Cannula 2.0 12/14/19 20:00 98.5 104 20 126/74 (91) 94 12/14/19 18:48 112 125/63 12/14/19 16:00 99.1 112 22 125/63 (83) 94 12/14/19 13:40 Nasal Cannula 2.0 12/14/19 13:00 Nasal Cannula 2.0 Intake and Output 12/14/19 12/15/19 19:00 07:00 Intake Total 1100 ml 1940 ml Output Total 500 ml 700 ml Balance 600 ml 1240 ml Free Water 100 ml 200 ml IV Total 1000 ml 1200 ml Tube Feeding 540 ml Output Urine Total 500 ml 700 ml # Voids 1 General Appearance: no acute distress HEENT: normocephalic Respiratory: chest wall non-tender Cardiovascular: normal peripheral pulses Abdomen: normal bowel sounds Laboratory Tests 12/15/19 02:40: White Blood Count 7.4, Red Blood Count 5.06, Hemoglobin 15.2, Hematocrit 48.3, Mean Corpuscular Volume 95, Mean Corpuscular Hemoglobin 30.1, Mean Corpuscular Hemoglobin Concent 31.5L, Red Cell Distribution Width 13.6, Platelet Count 222, Mean Platelet Volume 7.1, Neutrophils (%) (Auto) , Lymphocytes (%) (Auto) , Monocytes (%) (Auto) , Eosinophils (%) (Auto) , Basophils (%) (Auto) , Differential Total Cells Counted 100, Neutrophils % (Manual) 89H, Lymphocytes % (Manual) 8L, Monocytes % (Manual) 3, Eosinophils % (Manual) 0, Basophils % ( Manual) 0, Band Neutrophils 0, Platelet Estimate Adequate, Platelet Morphology Normal, Red Blood Cell Morphology Normal, Sodium Level 150H, Potassium Level 4.1 , Chloride Level 113H, Carbon Dioxide Level 28, Anion Gap 9, Blood Urea Nitrogen 52H, Creatinine 1.3, Estimat Glomerular Filtration Rate > 60, Glucose Level 148H, Uric Acid 4.6, Calcium Level 8.5, Phosphorus Level 2.4L, Magnesium Level 2.8H, Total Bilirubin 1.3H, Direct Bilirubin 0.7H, Aspartate Amino Transf (AST/SGOT) 79H, Alanine Aminotransferase (ALT/SGPT) 50, Alkaline Phosphatase 51 , Total Creatine Kinase 352H, C-Reactive Protein, Quantitative 31.5H, Pro-B- Type Natriuretic Peptide 105, Total Protein 7.0, Albumin 2.3L, Globulin 4.7, Albumin/Globulin Ratio 0.5L 12/15/19 09:50: Arterial Blood pH 7.456H, Arterial Blood Partial Pressure CO2 35.4, Arterial Blood Partial Pressure O2 62.0L, Arterial Blood HCO3 24.4, Arterial Blood Oxygen Saturation 92.4L, Arterial Blood Base Excess 1.0, Tashi Test Positive Current Medications Medications (Trade) Dose Ordered Sig/Faby Route PRN Reason Start Time Stop Time Status Last Admin Dose Admin Acetaminophen (Tylenol) 650 mg Q4H PRN ORAL mild pain/temp 12/14/19 08:57 01/13/20 08:56 12/14/19 09:01 Acetaminophen (Tylenol) 650 mg Q4H PRN RECTAL Mild Pain / temp 12/12/19 07:45 01/11/20 07:44 12/13/19 01:37 Amlodipine Besylate (Norvasc) 2.5 mg BID ORAL 12/15/19 18:00 01/11/20 17:59 Carbidopa/Levodopa (Sinemet 25/100) 1 tab TID ORAL 12/14/19 13:00 01/13/20 12:59 12/15/19 08:30 Ceftriaxone Sodium 1 gm/ Dextrose 55 ml @ 110 mls/hr Q24H IVPB 12/12/19 18:00 12/19/19 17:59 12/14/19 18:47 Dextrose 1,000 ml @ 50 mls/hr Q20H IV 12/15/19 10:30 01/14/20 10:29 12/15/19 10:54 Docusate Sodium (Colace) 100 mg THREE TIMES A DAY ORAL 12/12/19 13:00 01/11/20 12:59 12/15/19 08:30 Metoclopramide HCl (Reglan) 10 mg Q6H PRN IVP Nausea & Vomiting 12/15/19 10:45 01/14/20 10:44 Pantoprazole (Protonix) 40 mg EVERY 12 HOURS IVP 12/12/19 21:00 01/11/20 20:59 12/15/19 08:31 Assessment/Plan Assessment/Plan IMPRESSION: 1. COVID-19 pneumonia. 2. Parkinson's and dementia. 3. Transaminitis. DISCUSSION: The patient's x-ray is clear with some chronic-appearing changes, currently saturating well on nasal oxygen. I will follow as gore maker. Ordered oxygen and pulmonary hygiene. Defer antibiotic use to ID specialist. Dhara Barrios Omar Syed MD Dec 15, 2019 12:43
[2019-12-15 13:53] LABS: APPEARANCE,URINE CLEAR; BILIRUBIN, URINE NEGATIVE (NEGATIVE); GLUCOSE, URINE (UA) NEGATIVE (NEGATIVE); KETONES,URINE NEGATIVE (NEGATIVE); LEUKOCYTE ESTERASE ,URINE 1+ (NEGATIVE); NITRITE,URINE NEGATIVE (NEGATIVE); PH,URINE 5 (4.5-8.0); PROTEIN,URINE 3+ (NEGATIVE); UROBILINOGEN,URINE 1 MG/DL (0.0-1.0)
[2019-12-15 14:05] LABS: COLOR,URINE YELLOW
--- NOTE | 2019-12-15 14:42 | Infectious Diseases Prog Note ---
Assessment/Plan Assessment/Plan IMPRESSION: COVID-19 pneumonia Dysphagia Dementia, Hypertension, , Acute renal failure, Rhabdomyolysis, Elevation of transaminase & bilirubin RECOMMENDATIONS: Change ceftriaxone to Zosyn Follow up chest x-ray. Subjective ROS Limited/Unobtainable: Yes Constitutional: Reports: fever, other - T=100.9 Respiratory: Reports: other Allergies: Coded Allergies: No Known Allergies (Unverified , 12/11/19) Objective Vital Signs Last 24 Hour Vital Signs Date Time Temp Pulse Resp B/P (MAP) Pulse Ox O2 Delivery O2 Flow Rate FiO2 12/15/19 12:00 100.9 101 41 130/65 (86) 93 12/15/19 09:40 98.2 95 40 117/60 (79) 94 12/15/19 09:30 98.1 102 42 123/70 (87) 92 12/15/19 09:00 Nasal Cannula 2.0 12/15/19 08:31 102 123/70 12/15/19 08:00 98.1 102 19 123/70 (87) 93 12/15/19 04:00 98.7 103 20 106/50 (68) 94 12/15/19 00:00 98.4 103 20 126/71 (89) 94 12/14/19 21:00 Nasal Cannula 2.0 12/14/19 20:00 98.5 104 20 126/74 (91) 94 12/14/19 18:48 112 125/63 12/14/19 16:00 99.1 112 22 125/63 (83) 94 Height (Feet): 6 Height (Inches): 1.00 Weight (Pounds): 170 HEENT: mucous membranes moist Respiratory/Chest: other - Tachypeic, oxygen by nasal cannula Cardiovascular: tachycardia Abdomen: soft, non tender, other - NG tube Extremities: no edema Neurologic/Psychiatric: unresponsiveness Laboratory Tests Test 12/15/19 02:40 12/15/19 09:50 12/15/19 13:35 White Blood Count 7.4 K/UL (4.8-10.8) Red Blood Count 5.06 M/UL (4.70-6.10) Hemoglobin 15.2 G/DL (14.2-18.0) Hematocrit 48.3 % (42.0-52.0) Mean Corpuscular Volume 95 FL (80-99) Mean Corpuscular Hemoglobin 30.1 PG (27.0-31.0) Mean Corpuscular Hemoglobin Concent 31.5 G/DL (32.0-36.0) L Red Cell Distribution Width 13.6 % (11.6-14.8) Platelet Count 222 K/UL (150-450) Mean Platelet Volume 7.1 FL (6.5-10.1) Neutrophils (%) (Auto) % (45.0-75.0) Lymphocytes (%) (Auto) % (20.0-45.0) Monocytes (%) (Auto) % (1.0-10.0) Eosinophils (%) (Auto) % (0.0-3.0) Basophils (%) (Auto) % (0.0-2.0) Differential Total Cells Counted 100 Neutrophils % (Manual) 89 % (45-75) H Lymphocytes % (Manual) 8 % (20-45) L Monocytes % (Manual) 3 % (1-10) Eosinophils % (Manual) 0 % (0-3) Basophils % (Manual) 0 % (0-2) Band Neutrophils 0 % (0-8) Platelet Estimate Adequate Platelet Morphology Normal Red Blood Cell Morphology Normal Sodium Level 150 MMOL/L (136-145) H Potassium Level 4.1 MMOL/L (3.5-5.1) Chloride Level 113 MMOL/L (98-107) H Carbon Dioxide Level 28 MMOL/L (21-32) Anion Gap 9 mmol/L (5-15) Blood Urea Nitrogen 52 mg/dL (7-18) H Creatinine 1.3 MG/DL (0.55-1.30) Estimat Glomerular Filtration Rate > 60 mL/min (>60) Glucose Level 148 MG/DL (74-106) H Uric Acid 4.6 MG/DL (2.6-7.2) Calcium Level 8.5 MG/DL (8.5-10.1) Phosphorus Level 2.4 MG/DL (2.5-4.9) L Magnesium Level 2.8 MG/DL (1.8-2.4) H Total Bilirubin 1.3 MG/DL (0.2-1.0) H Direct Bilirubin 0.7 MG/DL (0.0-0.3) H Aspartate Amino Transf (AST/SGOT) 79 U/L (15-37) H Alanine Aminotransferase (ALT/SGPT) 50 U/L (12-78) Alkaline Phosphatase 51 U/L (46-116) Total Creatine Kinase 352 U/L (26-308) H C-Reactive Protein, Quantitative 31.5 mg/dL (0.00-0.90) H Pro-B-Type Natriuretic Peptide 105 pg/mL (0-125) Total Protein 7.0 G/DL (6.4-8.2) Albumin 2.3 G/DL (3.4-5.0) L Globulin 4.7 g/dL Albumin/Globulin Ratio 0.5 (1.0-2.7) L Arterial Blood pH 7.456 (7.350-7.450) Arterial Blood Partial Pressure CO2 35.4 mmHg (35.0-45.0) Arterial Blood Partial Pressure O2 62.0 mmHg (75.0-100.0) L Arterial Blood HCO3 24.4 mmol/L (22.0-26.0) Arterial Blood Oxygen Saturation 92.4 % (95-100) L Arterial Blood Base Excess 1.0 (-2-2) Tashi Test Positive Urine Color Yellow Urine Appearance Clear Urine pH 5 (4.5-8.0) Urine Specific [place] 1.010 (1.005-1.035) Urine Protein 3+ (NEGATIVE) H Urine Glucose (UA) Negative (NEGATIVE) Urine Ketones Negative (NEGATIVE) Urine Blood 5+ (NEGATIVE) H Urine Nitrite Negative (NEGATIVE) Urine Bilirubin Negative (NEGATIVE) Urine Urobilinogen 1 MG/DL (0.0-1.0) H Urine Leukocyte Esterase 1+ (NEGATIVE) H Urine RBC 10-15 /HPF (0 - 0) H Urine WBC 0-2 /HPF (0 - 0) Urine Squamous Epithelial Cells Occasional /LPF Urine Amorphous Sediment Few /LPF (NONE) H Urine Bacteria Occasional /HPF (NONE) Current Medications Medications (Trade) Dose Ordered Sig/Faby Route PRN Reason Start Time Stop Time Status Last Admin Dose Admin Acetaminophen (Tylenol) 650 mg Q4H PRN ORAL mild pain/temp 12/14/19 08:57 01/13/20 08:56 12/14/19 09:01 Acetaminophen (Tylenol) 650 mg Q4H PRN RECTAL Mild Pain / temp 12/12/19 07:45 01/11/20 07:44 12/13/19 01:37 Amlodipine Besylate (Norvasc) 2.5 mg BID ORAL 12/15/19 18:00 01/11/20 17:59 Carbidopa/Levodopa (Sinemet 25/100) 1 tab TID ORAL 12/14/19 13:00 01/13/20 12:59 12/15/19 13:01 Ceftriaxone Sodium 1 gm/ Dextrose 55 ml @ 110 mls/hr Q24H IVPB 12/12/19 18:00 12/19/19 17:59 12/14/19 18:47 Dextrose 1,000 ml @ 50 mls/hr Q20H IV 12/15/19 10:30 01/14/20 10:29 12/15/19 10:54 Docusate Sodium (Colace) 100 mg THREE TIMES A DAY ORAL 12/12/19 13:00 01/11/20 12:59 12/15/19 13:02 Furosemide (Lasix) 40 mg ONCE IV 12/15/19 13:00 12/15/19 16:00 12/15/19 13:03 Metoclopramide HCl (Reglan) 10 mg Q6H PRN IVP Nausea & Vomiting 12/15/19 10:45 01/14/20 10:44 Pantoprazole (Protonix) 40 mg EVERY 12 HOURS IVP 12/12/19 21:00 01/11/20 20:59 12/15/19 08:31 Kelvin Lafleur MD Dec 15, 2019 14:42
[2019-12-15] MEDS: Piperacillin/Tazobactam 3.375 GM in NS 110 ML IVPB SCH ×2 (18:24→21:26)
--- NOTE | 2019-12-15 20:13 | General Progress Note ---
Assessment/Plan Problem List: (1) Failure to thrive SNOMED: 41318113 (2) Dehydration ICD Codes: E86.0 - Dehydration SNOMED: 16013603 (3) Fever ICD Codes: R50.9 - Fever, unspecified SNOMED: 113695010 (4) Pneumonia due to COVID-19 virus ICD Codes: U07.1 - COVID-19; J12.89 - Other viral pneumonia SNOMED: 059041422, 186662371 (5) JAYDEN (acute kidney injury) ICD Codes: N17.9 - Acute kidney failure, unspecified SNOMED: 4803859, 75241836 Status: progressing Assessment/Plan: covid positive pna s/p tachypnia s/p lethergy afebrile cxr done poor prognosis supportive therapy Subjective ROS Limited/Unobtainable: Yes Allergies: Coded Allergies: No Known Allergies (Unverified , 12/11/19) Objective Last 24 Hour Vital Signs Date Time Temp Pulse Resp B/P (MAP) Pulse Ox O2 Delivery O2 Flow Rate FiO2 12/15/19 18:00 104 109/69 12/15/19 16:00 98.2 104 20 109/9 (42) 93 12/15/19 12:00 100.9 101 41 130/65 (86) 93 12/15/19 09:40 98.2 95 40 117/60 (79) 94 12/15/19 09:30 98.1 102 42 123/70 (87) 92 12/15/19 09:00 Nasal Cannula 2.0 12/15/19 08:31 102 123/70 12/15/19 08:00 98.1 102 19 123/70 (87) 93 12/15/19 04:00 98.7 103 20 106/50 (68) 94 12/15/19 00:00 98.4 103 20 126/71 (89) 94 12/14/19 21:00 Nasal Cannula 2.0 Intake and Output 12/14/19 12/15/19 19:00 07:00 Intake Total 1100 ml 2040 ml Output Total 500 ml 700 ml Balance 600 ml 1340 ml Free Water 100 ml 200 ml IV Total 1000 ml 1300 ml Tube Feeding 540 ml Output Urine Total 500 ml 700 ml # Voids 1 Laboratory Tests 12/15/19 02:40: White Blood Count 7.4, Red Blood Count 5.06, Hemoglobin 15.2, Hematocrit 48.3, Mean Corpuscular Volume 95, Mean Corpuscular Hemoglobin 30.1, Mean Corpuscular Hemoglobin Concent 31.5L, Red Cell Distribution Width 13.6, Platelet Count 222, Mean Platelet Volume 7.1, Neutrophils (%) (Auto) , Lymphocytes (%) (Auto) , Monocytes (%) (Auto) , Eosinophils (%) (Auto) , Basophils (%) (Auto) , Differential Total Cells Counted 100, Neutrophils % (Manual) 89H, Lymphocytes % (Manual) 8L, Monocytes % (Manual) 3, Eosinophils % (Manual) 0, Basophils % ( Manual) 0, Band Neutrophils 0, Platelet Estimate Adequate, Platelet Morphology Normal, Red Blood Cell Morphology Normal, Sodium Level 150H, Potassium Level 4.1 , Chloride Level 113H, Carbon Dioxide Level 28, Anion Gap 9, Blood Urea Nitrogen 52H, Creatinine 1.3, Estimat Glomerular Filtration Rate > 60, Glucose Level 148H, Uric Acid 4.6, Calcium Level 8.5, Phosphorus Level 2.4L, Magnesium Level 2.8H, Total Bilirubin 1.3H, Direct Bilirubin 0.7H, Aspartate Amino Transf (AST/SGOT) 79H, Alanine Aminotransferase (ALT/SGPT) 50, Alkaline Phosphatase 51 , Total Creatine Kinase 352H, C-Reactive Protein, Quantitative 31.5H, Pro-B- Type Natriuretic Peptide 105, Total Protein 7.0, Albumin 2.3L, Globulin 4.7, Albumin/Globulin Ratio 0.5L 12/15/19 09:50: Arterial Blood pH 7.456H, Arterial Blood Partial Pressure CO2 35.4, Arterial Blood Partial Pressure O2 62.0L, Arterial Blood HCO3 24.4, Arterial Blood Oxygen Saturation 92.4L, Arterial Blood Base Excess 1.0, Tashi Test Positive 12/15/19 13:35: Urine Color Yellow, Urine Appearance Clear, Urine pH 5, Urine Specific [place] 1.010, Urine Protein 3+H, Urine Glucose (UA) Negative, Urine Ketones Negative, Urine Blood 5+H, Urine Nitrite Negative, Urine Bilirubin Negative, Urine Urobilinogen 1H, Urine Leukocyte Esterase 1+H, Urine RBC 10-15H, Urine WBC 0-2, Urine Squamous Epithelial Cells Occasional, Urine Amorphous Sediment FewH, Urine Bacteria Occasional Height (Feet): 6 Height (Inches): 1.00 Weight (Pounds): 170 Kevin Anderson MD Dec 15, 2019 20:13
--- NOTE | 2019-12-15 21:57 | Psych Consult Progress Note ---
Psychiatry Progress Note Psychiatry Progress Note Subjective the pt was desating today no tremor Medications Current Medications Medications (Trade) Dose Ordered Sig/Faby Route PRN Reason Start Time Stop Time Status Last Admin Dose Admin Acetaminophen (Tylenol) 650 mg Q4H PRN ORAL mild pain/temp 12/14/19 08:57 01/13/20 08:56 12/14/19 09:01 Acetaminophen (Tylenol) 650 mg Q4H PRN RECTAL Mild Pain / temp 12/12/19 07:45 01/11/20 07:44 12/13/19 01:37 Amlodipine Besylate (Norvasc) 2.5 mg BID ORAL 12/15/19 18:00 01/11/20 17:59 Carbidopa/Levodopa (Sinemet 25/100) 1 tab TID ORAL 12/14/19 13:00 01/13/20 12:59 12/15/19 18:13 Dextrose 1,000 ml @ 50 mls/hr Q20H IV 12/15/19 10:30 01/14/20 10:29 12/15/19 10:54 Docusate Sodium (Colace) 100 mg THREE TIMES A DAY ORAL 12/12/19 13:00 01/11/20 12:59 12/15/19 18:13 Metoclopramide HCl (Reglan) 10 mg Q6H PRN IVP Nausea & Vomiting 12/15/19 10:45 01/14/20 10:44 Pantoprazole (Protonix) 40 mg EVERY 12 HOURS IVP 12/12/19 21:00 01/11/20 20:59 12/15/19 21:26 Piperacillin Sod/ Tazobactam Sod 3.375 gm/Sodium Chloride 110 ml @ 27.5 mls/hr EVERY 8 HOURS IVPB 12/15/19 16:00 12/20/19 15:59 12/15/19 21:26 Neurological/Psychiatric: Reports: anxiety Allergies: Coded Allergies: No Known Allergies (Unverified , 12/11/19) Objective Data Height (Feet): 6 Height (Inches): 1.00 Weight (Pounds): 170 General Appearance: WD/WN, no apparent distress, confused Additional Comments: Poor eye contact. Mood is neutral to anxious. Affect is flat. Thought process, there is a paucity of thought content. Cognition is impaired. Insight and judgment impaired. Assessment/Plan Status: progressing Assessment/Plan: ASSESSMENT: 1. Parkinson disease. 2. Dementia 3. Anxiety disorder. PLAN: 1. The patient is on Sinemet. 2. dc amantadine Bhavesh Fernandes MD Dec 15, 2019 21:57
[2019-12-16] VITALS: BP 110/68
[2019-12-16 04:00] VITALS: BP 109/73
[2019-12-16] MEDS: Piperacillin/Tazobactam 3.375 GM in NS 110 ML IVPB SCH ×3 (05:33→21:58)
[2019-12-16 06:31] LABS: BASOPHILS % (AUTO) 0.5 % (0.0-2.0); EOSINOPHILS % (AUTO) 0.5 % (0.0-3.0); MEAN CORPUSCULAR VOLUME 96 FL (80-99); MONOCYTES % (AUTO) 5.3 % (1.0-10.0); NEUTROPHILS % (AUTO) 83.6 % (45.0-75.0); PLATELET COUNT 174 K/UL (150-450); RED BLOOD COUNT 4.99 M/UL (4.70-6.10); RED CELL DISTRIBUTION WIDTH 13.4 % (11.6-14.8); WHITE BLOOD COUNT 6.9 K/UL (4.8-10.8)
[2019-12-16 07:49] LABS: ALANINE AMINOTRANSFERASE 160 U/L (12-78); ALBUMIN 2.2 G/DL (3.4-5.0); ALBUMIN/GLOBULIN RATIO 0.5 (1.0-2.7); ALKALINE PHOSPHATASE 61 U/L (46-116); ANION GAP 10 mmol/L (5-15); ASPARTATE AMINO TRANSFERASE 344 U/L (15-37); BILIRUBIN,TOTAL 1.1 MG/DL (0.2-1.0); BLOOD UREA NITROGEN 50 mg/dL (7-18); CALCIUM 8.9 MG/DL (8.5-10.1); CARBON DIOXIDE 28 MMOL/L (21-32); CHLORIDE 111 MMOL/L (98-107); CREATININE 1.4 MG/DL (0.55-1.30); POTASSIUM 4.4 MMOL/L (3.5-5.1); SODIUM 149 MMOL/L (136-145)
[2019-12-16 07:52] LABS: BILIRUBIN,DIRECT 0.6 MG/DL (0.0-0.3)
[2019-12-16 08:00] VITALS: BP 120/77
[2019-12-16] MEDS: Docusate 100mg cap ORAL SCH ×3 (09:30→18:18)
[2019-12-16] MEDS: Levodopa/Carbidopa 25/100 tab ORAL SCH ×3 (09:30→18:18)
[2019-12-16] MEDS: Pantoprazole Inj IVP SCH ×2 (09:31→21:58)
--- NOTE | 2019-12-16 09:37 | General Progress Note ---
Assessment/Plan Status: progressing Assessment/Plan: 1. History of Parkinson disease. 2. Arthritis. 3. Dysphagia. 4. Muscle weakness. 5. FTT 6. Elevated LFTS 7. COVID PNA NGT NGTF fu LFTS consider abd us may need PEG will fu Subjective ROS Limited/Unobtainable: No Allergies: Coded Allergies: No Known Allergies (Unverified , 12/11/19) Objective Last 24 Hour Vital Signs Date Time Temp Pulse Resp B/P (MAP) Pulse Ox O2 Delivery O2 Flow Rate FiO2 12/16/19 09:31 95 120/77 12/16/19 08:00 97.7 95 20 120/77 (91) 100 12/16/19 06:27 Non-Rebreather 15.0 12/16/19 04:00 98.8 87 20 109/73 (85) 98 12/16/19 00:00 98.9 100 18 110/68 (82) 95 12/15/19 21:00 Non-Rebreather 15.0 12/15/19 20:00 98.0 102 20 133/83 (100) 94 12/15/19 18:00 104 109/69 12/15/19 16:00 98.2 104 20 109/9 (42) 93 12/15/19 12:00 100.9 101 41 130/65 (86) 93 12/15/19 09:40 98.2 95 40 117/60 (79) 94 Intake and Output 12/15/19 12/16/19 19:00 07:00 Intake Total 975 ml 947.5 ml Output Total 1350 ml 550 ml Balance -375 ml 397.5 ml Free Water 100 ml IV Total 705 ml 287.5 ml Tube Feeding 170 ml 660 ml Output Urine Total 1350 ml 550 ml # Voids 1 # Bowel Movements 2 Laboratory Tests 12/15/19 09:50: Arterial Blood pH 7.456H, Arterial Blood Partial Pressure CO2 35.4, Arterial Blood Partial Pressure O2 62.0L, Arterial Blood HCO3 24.4, Arterial Blood Oxygen Saturation 92.4L, Arterial Blood Base Excess 1.0, Tashi Test Positive 12/15/19 13:35: Urine Color Yellow, Urine Appearance Clear, Urine pH 5, Urine Specific [place] 1.010, Urine Protein 3+H, Urine Glucose (UA) Negative, Urine Ketones Negative, Urine Blood 5+H, Urine Nitrite Negative, Urine Bilirubin Negative, Urine Urobilinogen 1H, Urine Leukocyte Esterase 1+H, Urine RBC 10-15H, Urine WBC 0-2, Urine Squamous Epithelial Cells Occasional, Urine Amorphous Sediment FewH, Urine Bacteria Occasional 12/16/19 04:25: White Blood Count 6.9, Red Blood Count 4.99, Hemoglobin 15.0, Hematocrit 48.0, Mean Corpuscular Volume 96, Mean Corpuscular Hemoglobin 30.2, Mean Corpuscular Hemoglobin Concent 31.3L, Red Cell Distribution Width 13.4, Platelet Count 174, Mean Platelet Volume 7.4, Neutrophils (%) (Auto) 83.6H, Lymphocytes (%) (Auto) 10.0L, Monocytes (%) (Auto) 5.3, Eosinophils (%) (Auto) 0.5, Basophils (%) (Auto ) 0.5, Sodium Level 149H, Potassium Level 4.4, Chloride Level 111H, Carbon Dioxide Level 28, Anion Gap 10, Blood Urea Nitrogen 50H, Creatinine 1.4H, Estimat Glomerular Filtration Rate > 60, Glucose Level 135H, Calcium Level 8.9, Total Bilirubin 1.1H, Direct Bilirubin 0.6H, Aspartate Amino Transf (AST/SGOT) 344H, Alanine Aminotransferase (ALT/SGPT) 160H, Alkaline Phosphatase 61, Total Protein 6.9, Albumin 2.2L, Globulin 4.7, Albumin/Globulin Ratio 0.5L Height (Feet): 6 Height (Inches): 1.00 Weight (Pounds): 170 General Appearance: lethargic EENT: normal ENT inspection Neck: supple Cardiovascular: normal rate Respiratory/Chest: decreased breath sounds Abdomen: hypoactive bowel sounds Extremities: non-tender Balaji Medina MD Dec 16, 2019 09:37
[2019-12-16 10:02] LABS: PHOSPHORUS 3.7 MG/DL (2.5-4.9)
--- NOTE | 2019-12-16 10:13 | Pulmonology Progress Note ---
Subjective ROS Limited/Unobtainable: No Interval Events: Saturating well on nasal O2; AGB shows resp alkalosis; now on ventimask Constitutional: Reports: fever, other - T=100.9 HEENT: Repors: no symptoms Respiratory: Reports: no symptoms Cardiovascular: Reports: no symptoms Gastrointestinal/Abdominal: Reports: no symptoms Genitourinary: Reports: no symptoms Allergies: Coded Allergies: No Known Allergies (Unverified , 12/11/19) Objective Last 24 Hour Vital Signs Date Time Temp Pulse Resp B/P (MAP) Pulse Ox O2 Delivery O2 Flow Rate FiO2 12/16/19 09:31 95 120/77 12/16/19 08:00 97.7 95 20 120/77 (91) 100 12/16/19 06:27 Non-Rebreather 15.0 12/16/19 04:00 98.8 87 20 109/73 (85) 98 12/16/19 00:00 98.9 100 18 110/68 (82) 95 12/15/19 21:00 Non-Rebreather 15.0 12/15/19 20:00 98.0 102 20 133/83 (100) 94 12/15/19 18:00 104 109/69 12/15/19 16:00 98.2 104 20 109/9 (42) 93 12/15/19 12:00 100.9 101 41 130/65 (86) 93 Intake and Output 12/15/19 12/16/19 19:00 07:00 Intake Total 975 ml 947.5 ml Output Total 1350 ml 550 ml Balance -375 ml 397.5 ml Free Water 100 ml IV Total 705 ml 287.5 ml Tube Feeding 170 ml 660 ml Output Urine Total 1350 ml 550 ml # Voids 1 # Bowel Movements 2 General Appearance: no acute distress HEENT: normocephalic Respiratory: chest wall non-tender Cardiovascular: normal peripheral pulses Abdomen: normal bowel sounds Laboratory Tests 12/15/19 13:35: Urine Color Yellow, Urine Appearance Clear, Urine pH 5, Urine Specific [place] 1.010, Urine Protein 3+H, Urine Glucose (UA) Negative, Urine Ketones Negative, Urine Blood 5+H, Urine Nitrite Negative, Urine Bilirubin Negative, Urine Urobilinogen 1H, Urine Leukocyte Esterase 1+H, Urine RBC 10-15H, Urine WBC 0-2, Urine Squamous Epithelial Cells Occasional, Urine Amorphous Sediment FewH, Urine Bacteria Occasional 12/16/19 04:25: White Blood Count 6.9, Red Blood Count 4.99, Hemoglobin 15.0, Hematocrit 48.0, Mean Corpuscular Volume 96, Mean Corpuscular Hemoglobin 30.2, Mean Corpuscular Hemoglobin Concent 31.3L, Red Cell Distribution Width 13.4, Platelet Count 174, Mean Platelet Volume 7.4, Neutrophils (%) (Auto) 83.6H, Lymphocytes (%) (Auto) 10.0L, Monocytes (%) (Auto) 5.3, Eosinophils (%) (Auto) 0.5, Basophils (%) (Auto ) 0.5, Sodium Level 149H, Potassium Level 4.4, Chloride Level 111H, Carbon Dioxide Level 28, Anion Gap 10, Blood Urea Nitrogen 50H, Creatinine 1.4H, Estimat Glomerular Filtration Rate > 60, Glucose Level 135H, Calcium Level 8.9, Phosphorus Level 3.7, Magnesium Level 2.5H, Total Bilirubin 1.1H, Direct Bilirubin 0.6H, Aspartate Amino Transf (AST/SGOT) 344H, Alanine Aminotransferase (ALT/SGPT) 160H, Alkaline Phosphatase 61, Total Protein 6.9, Albumin 2.2L, Globulin 4.7, Albumin/Globulin Ratio 0.5L Current Medications Medications (Trade) Dose Ordered Sig/Faby Route PRN Reason Start Time Stop Time Status Last Admin Dose Admin Acetaminophen (Tylenol) 650 mg Q4H PRN ORAL mild pain/temp 12/14/19 08:57 01/13/20 08:56 12/14/19 09:01 Acetaminophen (Tylenol) 650 mg Q4H PRN RECTAL Mild Pain / temp 12/12/19 07:45 01/11/20 07:44 12/13/19 01:37 Amlodipine Besylate (Norvasc) 2.5 mg BID ORAL 12/15/19 18:00 01/11/20 17:59 12/16/19 09:31 Carbidopa/Levodopa (Sinemet 25/100) 1 tab TID ORAL 12/14/19 13:00 01/13/20 12:59 12/16/19 09:30 Dextrose 1,000 ml @ 50 mls/hr Q20H IV 12/15/19 10:30 01/14/20 10:29 12/16/19 05:33 Docusate Sodium (Colace) 100 mg THREE TIMES A DAY ORAL 12/12/19 13:00 01/11/20 12:59 12/16/19 09:30 Metoclopramide HCl (Reglan) 10 mg Q6H PRN IVP Nausea & Vomiting 12/15/19 10:45 01/14/20 10:44 Pantoprazole (Protonix) 40 mg EVERY 12 HOURS IVP 12/12/19 21:00 01/11/20 20:59 12/16/19 09:31 Piperacillin Sod/ Tazobactam Sod 3.375 gm/Sodium Chloride 110 ml @ 27.5 mls/hr EVERY 8 HOURS IVPB 12/15/19 16:00 12/20/19 15:59 12/16/19 05:33 Assessment/Plan Assessment/Plan IMPRESSION: 1. COVID-19 pneumonia. 2. Parkinson's and dementia. 3. Transaminitis. DISCUSSION: The patient's x-ray is clear with some chronic-appearing changes, currently saturating well on nasal oxygen. Placed by RT on ventimask; will request to decrease FiO2 I will follow as critical care nurse practitioner. Dhara Barrios Omar Syed MD Dec 16, 2019 10:13
[2019-12-16 12:00] VITALS: BP 121/81
--- NOTE | 2019-12-16 12:00 | Nephrology Progress Note ---
Assessment/Plan Problem List: (1) JAYDEN (acute kidney injury) (2) Dehydration (3) Fever (4) Pneumonia due to COVID-19 virus Assessment This 74-year-old male is admitted with fever and possible COVID positive infection On presentation the patient has acute renal failure which suggests a pattern of mainly dehydration Most likely has underlying chronic kidney disease Other conditions include Parkinson's and dementia Evidence of UTI Elevated CK possible rhabdo . Plan December 15: On non-rebreathing mask. Today's labs reviewed. Renal parameters stable. Creatinine 1.4. Continue per pulmonary and ID. December 14: NGT in place however feeding on hold due to his high residual. Patient is slightly tachypneic. ABG noted. Chest x-ray pending. Patient remains on Rocephin. Patient is DNR. Will change IV to D5W 50 cc an hour while feeding is on hold. Will discuss with the consultants as the patient may need a more broader spectrum antibiotics. Reglan intravenously initiated. Patient is stable from renal standpoint of view. Previously: Remains n.p.o. pending GI advice Keep blood pressure in check IV hydration, monitor CPK and liver function tests. Renal parameters improving. Monitor renal parameters Fish catheter May need broad-spectrum antibiotics, defer to ID Per consultants Chest x-ray: Impression: Extensive infiltrate throughout the right mid and lower lung, new since prior exam of 2 days earlier, likely on the basis of pneumonia. Left basilar atelectasis Subjective ROS Limited/Unobtainable: No Constitutional: Reports: malaise, weakness Objective Objective Last 24 Hour Vital Signs Date Time Temp Pulse Resp B/P (MAP) Pulse Ox O2 Delivery O2 Flow Rate FiO2 12/16/19 09:31 95 120/77 12/16/19 08:00 97.7 95 20 120/77 (91) 100 12/16/19 06:27 Non-Rebreather 15.0 12/16/19 04:00 98.8 87 20 109/73 (85) 98 12/16/19 00:00 98.9 100 18 110/68 (82) 95 12/15/19 21:00 Non-Rebreather 15.0 12/15/19 20:00 98.0 102 20 133/83 (100) 94 12/15/19 18:00 104 109/69 12/15/19 16:00 98.2 104 20 109/9 (42) 93 12/15/19 12:00 100.9 101 41 130/65 (86) 93 Intake and Output 12/15/19 12/16/19 19:00 07:00 Intake Total 975 ml 947.5 ml Output Total 1350 ml 550 ml Balance -375 ml 397.5 ml Free Water 100 ml IV Total 705 ml 287.5 ml Tube Feeding 170 ml 660 ml Output Urine Total 1350 ml 550 ml # Voids 1 # Bowel Movements 2 Current Medications Medications (Trade) Dose Ordered Sig/Faby Route PRN Reason Start Time Stop Time Status Last Admin Dose Admin Acetaminophen (Tylenol) 650 mg Q4H PRN ORAL mild pain/temp 12/14/19 08:57 01/13/20 08:56 12/14/19 09:01 Acetaminophen (Tylenol) 650 mg Q4H PRN RECTAL Mild Pain / temp 12/12/19 07:45 01/11/20 07:44 12/13/19 01:37 Amlodipine Besylate (Norvasc) 2.5 mg BID ORAL 12/15/19 18:00 01/11/20 17:59 12/16/19 09:31 Carbidopa/Levodopa (Sinemet 25/100) 1 tab TID ORAL 12/14/19 13:00 01/13/20 12:59 12/16/19 09:30 Dextrose 1,000 ml @ 50 mls/hr Q20H IV 12/15/19 10:30 01/14/20 10:29 12/16/19 05:33 Docusate Sodium (Colace) 100 mg THREE TIMES A DAY ORAL 12/12/19 13:00 01/11/20 12:59 12/16/19 09:30 Metoclopramide HCl (Reglan) 10 mg Q6H PRN IVP Nausea & Vomiting 12/15/19 10:45 01/14/20 10:44 Pantoprazole (Protonix) 40 mg EVERY 12 HOURS IVP 12/12/19 21:00 01/11/20 20:59 12/16/19 09:31 Piperacillin Sod/ Tazobactam Sod 3.375 gm/Sodium Chloride 110 ml @ 27.5 mls/hr EVERY 8 HOURS IVPB 12/15/19 16:00 12/20/19 15:59 12/16/19 05:33 Laboratory Tests 12/15/19 13:35: Urine Color Yellow, Urine Appearance Clear, Urine pH 5, Urine Specific [place] 1.010, Urine Protein 3+H, Urine Glucose (UA) Negative, Urine Ketones Negative, Urine Blood 5+H, Urine Nitrite Negative, Urine Bilirubin Negative, Urine Urobilinogen 1H, Urine Leukocyte Esterase 1+H, Urine RBC 10-15H, Urine WBC 0-2, Urine Squamous Epithelial Cells Occasional, Urine Amorphous Sediment FewH, Urine Bacteria Occasional 12/16/19 04:25: White Blood Count 6.9, Red Blood Count 4.99, Hemoglobin 15.0, Hematocrit 48.0, Mean Corpuscular Volume 96, Mean Corpuscular Hemoglobin 30.2, Mean Corpuscular Hemoglobin Concent 31.3L, Red Cell Distribution Width 13.4, Platelet Count 174, Mean Platelet Volume 7.4, Neutrophils (%) (Auto) 83.6H, Lymphocytes (%) (Auto) 10.0L, Monocytes (%) (Auto) 5.3, Eosinophils (%) (Auto) 0.5, Basophils (%) (Auto ) 0.5, Sodium Level 149H, Potassium Level 4.4, Chloride Level 111H, Carbon Dioxide Level 28, Anion Gap 10, Blood Urea Nitrogen 50H, Creatinine 1.4H, Estimat Glomerular Filtration Rate > 60, Glucose Level 135H, Calcium Level 8.9, Phosphorus Level 3.7, Magnesium Level 2.5H, Total Bilirubin 1.1H, Direct Bilirubin 0.6H, Aspartate Amino Transf (AST/SGOT) 344H, Alanine Aminotransferase (ALT/SGPT) 160H, Alkaline Phosphatase 61, Total Protein 6.9, Albumin 2.2L, Globulin 4.7, Albumin/Globulin Ratio 0.5L Height (Feet): 6 Height (Inches): 1.00 Weight (Pounds): 170 General Appearance: mild distress EENT: other - On nonrebreathing mask Cardiovascular: tachycardia Respiratory/Chest: decreased breath sounds Abdomen: distended Brent Gonsales MD Dec 16, 2019 12:00
--- NOTE | 2019-12-16 12:04 | Cardiac Electrophysiology PN ---
Assessment/Plan Assessment/Plan 1. Sinus tachycardia due to dehydration and sepsis Ruled out for ID 2. Sepsis. Patient is on antibiotic per ID. 3. Rhabdomyolysis and renal failure with creatinine of 2.3, improved to 1.4. FU Dr. Gonsales. 4. Parkinson disease and dementia. 5. Dysphagia, PEG pending Covid negativity per Dr Carol COLLAZO RN Subjective Subjective No new events. Covid positive from 12/11. NGT feeding. Awaiting swab results from 12/14 Objective Last 24 Hour Vital Signs Date Time Temp Pulse Resp B/P (MAP) Pulse Ox O2 Delivery O2 Flow Rate FiO2 12/16/19 09:31 95 120/77 12/16/19 08:00 97.7 95 20 120/77 (91) 100 12/16/19 06:27 Non-Rebreather 15.0 12/16/19 04:00 98.8 87 20 109/73 (85) 98 12/16/19 00:00 98.9 100 18 110/68 (82) 95 12/15/19 21:00 Non-Rebreather 15.0 12/15/19 20:00 98.0 102 20 133/83 (100) 94 12/15/19 18:00 104 109/69 12/15/19 16:00 98.2 104 20 109/9 (42) 93 Intake and Output 12/15/19 12/16/19 19:00 07:00 Intake Total 975 ml 947.5 ml Output Total 1350 ml 550 ml Balance -375 ml 397.5 ml Free Water 100 ml IV Total 705 ml 287.5 ml Tube Feeding 170 ml 660 ml Output Urine Total 1350 ml 550 ml # Voids 1 # Bowel Movements 2 Laboratory Tests Test 12/15/19 13:35 12/16/19 04:25 Urine Color Yellow Urine Appearance Clear Urine pH 5 (4.5-8.0) Urine Specific [place] 1.010 (1.005-1.035) Urine Protein 3+ (NEGATIVE) H Urine Glucose (UA) Negative (NEGATIVE) Urine Ketones Negative (NEGATIVE) Urine Blood 5+ (NEGATIVE) H Urine Nitrite Negative (NEGATIVE) Urine Bilirubin Negative (NEGATIVE) Urine Urobilinogen 1 MG/DL (0.0-1.0) H Urine Leukocyte Esterase 1+ (NEGATIVE) H Urine RBC 10-15 /HPF (0 - 0) H Urine WBC 0-2 /HPF (0 - 0) Urine Squamous Epithelial Cells Occasional /LPF Urine Amorphous Sediment Few /LPF (NONE) H Urine Bacteria Occasional /HPF (NONE) White Blood Count 6.9 K/UL (4.8-10.8) Red Blood Count 4.99 M/UL (4.70-6.10) Hemoglobin 15.0 G/DL (14.2-18.0) Hematocrit 48.0 % (42.0-52.0) Mean Corpuscular Volume 96 FL (80-99) Mean Corpuscular Hemoglobin 30.2 PG (27.0-31.0) Mean Corpuscular Hemoglobin Concent 31.3 G/DL (32.0-36.0) L Red Cell Distribution Width 13.4 % (11.6-14.8) Platelet Count 174 K/UL (150-450) Mean Platelet Volume 7.4 FL (6.5-10.1) Neutrophils (%) (Auto) 83.6 % (45.0-75.0) H Lymphocytes (%) (Auto) 10.0 % (20.0-45.0) L Monocytes (%) (Auto) 5.3 % (1.0-10.0) Eosinophils (%) (Auto) 0.5 % (0.0-3.0) Basophils (%) (Auto) 0.5 % (0.0-2.0) Sodium Level 149 MMOL/L (136-145) H Potassium Level 4.4 MMOL/L (3.5-5.1) Chloride Level 111 MMOL/L (98-107) H Carbon Dioxide Level 28 MMOL/L (21-32) Anion Gap 10 mmol/L (5-15) Blood Urea Nitrogen 50 mg/dL (7-18) H Creatinine 1.4 MG/DL (0.55-1.30) H Estimat Glomerular Filtration Rate > 60 mL/min (>60) Glucose Level 135 MG/DL (74-106) H Calcium Level 8.9 MG/DL (8.5-10.1) Phosphorus Level 3.7 MG/DL (2.5-4.9) Magnesium Level 2.5 MG/DL (1.8-2.4) H Total Bilirubin 1.1 MG/DL (0.2-1.0) H Direct Bilirubin 0.6 MG/DL (0.0-0.3) H Aspartate Amino Transf (AST/SGOT) 344 U/L (15-37) H Alanine Aminotransferase (ALT/SGPT) 160 U/L (12-78) H Alkaline Phosphatase 61 U/L (46-116) Total Protein 6.9 G/DL (6.4-8.2) Albumin 2.2 G/DL (3.4-5.0) L Globulin 4.7 g/dL Albumin/Globulin Ratio 0.5 (1.0-2.7) L Objective HEAD AND NECK: no JVD. LUNGS: Coarse rhonchi. CARDIOVASCULAR: Shows regular S1 and S2 with no gallop or murmur. Tachycardic. ABDOMEN: Soft. EXTREMITIES: No pitting edema. Luis Daniel Harding MD Dec 16, 2019 12:04
--- NOTE | 2019-12-16 12:11 | Infectious Diseases Prog Note ---
Assessment/Plan Assessment/Plan IMPRESSION: COVID-19 pneumonia Dysphagia Dementia, Hypertension, , Acute renal failure, Rhabdomyolysis, Elevation of transaminase & bilirubin RECOMMENDATIONS: Continue Zosyn Subjective ROS Limited/Unobtainable: Yes Constitutional: Denies: fever Allergies: Coded Allergies: No Known Allergies (Unverified , 12/11/19) Objective Vital Signs Last 24 Hour Vital Signs Date Time Temp Pulse Resp B/P (MAP) Pulse Ox O2 Delivery O2 Flow Rate FiO2 12/16/19 09:31 95 120/77 12/16/19 08:00 97.7 95 20 120/77 (91) 100 12/16/19 06:27 Non-Rebreather 15.0 12/16/19 04:00 98.8 87 20 109/73 (85) 98 12/16/19 00:00 98.9 100 18 110/68 (82) 95 12/15/19 21:00 Non-Rebreather 15.0 12/15/19 20:00 98.0 102 20 133/83 (100) 94 12/15/19 18:00 104 109/69 12/15/19 16:00 98.2 104 20 109/9 (42) 93 Height (Feet): 6 Height (Inches): 1.00 Weight (Pounds): 170 HEENT: mucous membranes moist Respiratory/Chest: other - oxygen byrebreathing mask Cardiovascular: normal rate Abdomen: soft, non tender Extremities: no edema Neurologic/Psychiatric: unresponsiveness Laboratory Tests Test 12/15/19 13:35 12/16/19 04:25 Urine Color Yellow Urine Appearance Clear Urine pH 5 (4.5-8.0) Urine Specific [place] 1.010 (1.005-1.035) Urine Protein 3+ (NEGATIVE) H Urine Glucose (UA) Negative (NEGATIVE) Urine Ketones Negative (NEGATIVE) Urine Blood 5+ (NEGATIVE) H Urine Nitrite Negative (NEGATIVE) Urine Bilirubin Negative (NEGATIVE) Urine Urobilinogen 1 MG/DL (0.0-1.0) H Urine Leukocyte Esterase 1+ (NEGATIVE) H Urine RBC 10-15 /HPF (0 - 0) H Urine WBC 0-2 /HPF (0 - 0) Urine Squamous Epithelial Cells Occasional /LPF Urine Amorphous Sediment Few /LPF (NONE) H Urine Bacteria Occasional /HPF (NONE) White Blood Count 6.9 K/UL (4.8-10.8) Red Blood Count 4.99 M/UL (4.70-6.10) Hemoglobin 15.0 G/DL (14.2-18.0) Hematocrit 48.0 % (42.0-52.0) Mean Corpuscular Volume 96 FL (80-99) Mean Corpuscular Hemoglobin 30.2 PG (27.0-31.0) Mean Corpuscular Hemoglobin Concent 31.3 G/DL (32.0-36.0) L Red Cell Distribution Width 13.4 % (11.6-14.8) Platelet Count 174 K/UL (150-450) Mean Platelet Volume 7.4 FL (6.5-10.1) Neutrophils (%) (Auto) 83.6 % (45.0-75.0) H Lymphocytes (%) (Auto) 10.0 % (20.0-45.0) L Monocytes (%) (Auto) 5.3 % (1.0-10.0) Eosinophils (%) (Auto) 0.5 % (0.0-3.0) Basophils (%) (Auto) 0.5 % (0.0-2.0) Sodium Level 149 MMOL/L (136-145) H Potassium Level 4.4 MMOL/L (3.5-5.1) Chloride Level 111 MMOL/L (98-107) H Carbon Dioxide Level 28 MMOL/L (21-32) Anion Gap 10 mmol/L (5-15) Blood Urea Nitrogen 50 mg/dL (7-18) H Creatinine 1.4 MG/DL (0.55-1.30) H Estimat Glomerular Filtration Rate > 60 mL/min (>60) Glucose Level 135 MG/DL (74-106) H Calcium Level 8.9 MG/DL (8.5-10.1) Phosphorus Level 3.7 MG/DL (2.5-4.9) Magnesium Level 2.5 MG/DL (1.8-2.4) H Total Bilirubin 1.1 MG/DL (0.2-1.0) H Direct Bilirubin 0.6 MG/DL (0.0-0.3) H Aspartate Amino Transf (AST/SGOT) 344 U/L (15-37) H Alanine Aminotransferase (ALT/SGPT) 160 U/L (12-78) H Alkaline Phosphatase 61 U/L (46-116) Total Protein 6.9 G/DL (6.4-8.2) Albumin 2.2 G/DL (3.4-5.0) L Globulin 4.7 g/dL Albumin/Globulin Ratio 0.5 (1.0-2.7) L Current Medications Medications (Trade) Dose Ordered Sig/Faby Route PRN Reason Start Time Stop Time Status Last Admin Dose Admin Acetaminophen (Tylenol) 650 mg Q4H PRN ORAL mild pain/temp 12/14/19 08:57 01/13/20 08:56 12/14/19 09:01 Acetaminophen (Tylenol) 650 mg Q4H PRN RECTAL Mild Pain / temp 12/12/19 07:45 01/11/20 07:44 12/13/19 01:37 Amlodipine Besylate (Norvasc) 2.5 mg BID ORAL 12/15/19 18:00 01/11/20 17:59 12/16/19 09:31 Carbidopa/Levodopa (Sinemet 25/100) 1 tab TID ORAL 12/14/19 13:00 01/13/20 12:59 12/16/19 09:30 Dextrose 1,000 ml @ 50 mls/hr Q20H IV 12/15/19 10:30 01/14/20 10:29 12/16/19 05:33 Docusate Sodium (Colace) 100 mg THREE TIMES A DAY ORAL 12/12/19 13:00 01/11/20 12:59 12/16/19 09:30 Metoclopramide HCl (Reglan) 10 mg Q6H PRN IVP Nausea & Vomiting 12/15/19 10:45 01/14/20 10:44 Pantoprazole (Protonix) 40 mg EVERY 12 HOURS IVP 12/12/19 21:00 01/11/20 20:59 12/16/19 09:31 Piperacillin Sod/ Tazobactam Sod 3.375 gm/Sodium Chloride 110 ml @ 27.5 mls/hr EVERY 8 HOURS IVPB 12/15/19 16:00 12/20/19 15:59 12/16/19 05:33 Kelvin Lafleur MD Dec 16, 2019 12:11
[2019-12-16] MEDS: Metoclopramide 10mg/2ml Inj IVP SCH ×2 (12:39→18:18)
[2019-12-16 16:00] VITALS: BP 131/84
[2019-12-16 20:00] VITALS: BP 132/80
--- NOTE | 2019-12-16 20:30 | General Progress Note ---
Assessment/Plan Problem List: (1) Failure to thrive SNOMED: 06824461 (2) Dehydration ICD Codes: E86.0 - Dehydration SNOMED: 26530014 (3) Fever ICD Codes: R50.9 - Fever, unspecified SNOMED: 786940363 (4) Pneumonia due to COVID-19 virus ICD Codes: U07.1 - COVID-19; J12.89 - Other viral pneumonia SNOMED: 379023832, 379278280 (5) JAYDEN (acute kidney injury) ICD Codes: N17.9 - Acute kidney failure, unspecified SNOMED: 9341978, 29720304 Status: progressing Assessment/Plan: covid positive pna prn oxygen check lytes not hypoxic afebrile abx per id poor prognosis supportive therapy Subjective ROS Limited/Unobtainable: Yes Allergies: Coded Allergies: No Known Allergies (Unverified , 12/11/19) Objective Last 24 Hour Vital Signs Date Time Temp Pulse Resp B/P (MAP) Pulse Ox O2 Delivery O2 Flow Rate FiO2 12/16/19 20:00 97.7 103 28 132/80 (97) 98 12/16/19 18:18 103 131/84 12/16/19 16:00 97.5 103 20 131/84 (100) 100 12/16/19 12:00 97.8 95 18 121/81 (94) 99 12/16/19 09:31 95 120/77 12/16/19 08:00 97.7 95 20 120/77 (91) 100 12/16/19 06:27 Non-Rebreather 15.0 12/16/19 04:00 98.8 87 20 109/73 (85) 98 12/16/19 00:00 98.9 100 18 110/68 (82) 95 12/15/19 21:00 Non-Rebreather 15.0 Intake and Output 12/15/19 12/16/19 19:00 07:00 Intake Total 975 ml 947.5 ml Output Total 1350 ml 550 ml Balance -375 ml 397.5 ml Free Water 100 ml IV Total 705 ml 287.5 ml Tube Feeding 170 ml 660 ml Output Urine Total 1350 ml 550 ml # Voids 1 # Bowel Movements 2 Laboratory Tests 12/16/19 04:25: White Blood Count 6.9, Red Blood Count 4.99, Hemoglobin 15.0, Hematocrit 48.0, Mean Corpuscular Volume 96, Mean Corpuscular Hemoglobin 30.2, Mean Corpuscular Hemoglobin Concent 31.3L, Red Cell Distribution Width 13.4, Platelet Count 174, Mean Platelet Volume 7.4, Neutrophils (%) (Auto) 83.6H, Lymphocytes (%) (Auto) 10.0L, Monocytes (%) (Auto) 5.3, Eosinophils (%) (Auto) 0.5, Basophils (%) (Auto ) 0.5, Sodium Level 149H, Potassium Level 4.4, Chloride Level 111H, Carbon Dioxide Level 28, Anion Gap 10, Blood Urea Nitrogen 50H, Creatinine 1.4H, Estimat Glomerular Filtration Rate > 60, Glucose Level 135H, Calcium Level 8.9, Phosphorus Level 3.7, Magnesium Level 2.5H, Total Bilirubin 1.1H, Direct Bilirubin 0.6H, Aspartate Amino Transf (AST/SGOT) 344H, Alanine Aminotransferase (ALT/SGPT) 160H, Alkaline Phosphatase 61, Total Protein 6.9, Albumin 2.2L, Globulin 4.7, Albumin/Globulin Ratio 0.5L Height (Feet): 6 Height (Inches): 1.00 Weight (Pounds): 170 Kevin Anderson MD Dec 16, 2019 20:30
--- NOTE | 2019-12-16 22:21 | Psych Consult Progress Note ---
Psychiatry Progress Note Psychiatry Progress Note Subjective the pt is the same stable no tremor Medications Current Medications Medications (Trade) Dose Ordered Sig/Faby Route PRN Reason Start Time Stop Time Status Last Admin Dose Admin Acetaminophen (Tylenol) 650 mg Q4H PRN ORAL mild pain/temp 12/14/19 08:57 01/13/20 08:56 12/14/19 09:01 Acetaminophen (Tylenol) 650 mg Q4H PRN RECTAL Mild Pain / temp 12/12/19 07:45 01/11/20 07:44 12/13/19 01:37 Amlodipine Besylate (Norvasc) 2.5 mg BID ORAL 12/15/19 18:00 01/11/20 17:59 12/16/19 18:18 Carbidopa/Levodopa (Sinemet 25/100) 1 tab TID ORAL 12/14/19 13:00 01/13/20 12:59 12/16/19 18:18 Dextrose 1,000 ml @ 50 mls/hr Q20H IV 12/15/19 10:30 01/14/20 10:29 12/16/19 05:33 Docusate Sodium (Colace) 100 mg THREE TIMES A DAY ORAL 12/12/19 13:00 01/11/20 12:59 12/16/19 18:18 Metoclopramide HCl (Reglan) 5 mg Q6H IVP 12/16/19 12:30 01/15/20 12:29 12/16/19 18:18 Metoclopramide HCl (Reglan) 10 mg Q6H PRN IVP Nausea & Vomiting 12/15/19 10:45 01/14/20 10:44 Pantoprazole (Protonix) 40 mg EVERY 12 HOURS IVP 12/12/19 21:00 01/11/20 20:59 12/16/19 21:58 Piperacillin Sod/ Tazobactam Sod 3.375 gm/Sodium Chloride 110 ml @ 27.5 mls/hr EVERY 8 HOURS IVPB 12/15/19 16:00 12/20/19 15:59 12/16/19 21:58 Allergies: Coded Allergies: No Known Allergies (Unverified , 12/11/19) Objective Data Height (Feet): 6 Height (Inches): 1.00 Weight (Pounds): 170 General Appearance: WD/WN, no apparent distress, alert, confused Appearance: no abnormalities noted Behavior Mannerisms: poor eye contact Mental Status Exam - Affect: flat Mental Status Exam - Suicidal: not present Assessment/Plan Status: progressing Assessment/Plan: ASSESSMENT: 1. Parkinson disease. 2. Dementia 3. Anxiety disorder. PLAN: 1. The patient is on Sinemet. 2. dc amantadine Bhavesh Fernandes MD Dec 16, 2019 22:21
[2019-12-17] VITALS: BP 109/73
[2019-12-17] MEDS: Metoclopramide 10mg/2ml Inj IVP SCH ×4 (00:10→17:26)
[2019-12-17 04:00] VITALS: BP 112/68
[2019-12-17] MEDS: Piperacillin/Tazobactam 3.375 GM in NS 110 ML IVPB SCH ×3 (05:27→22:00)
[2019-12-17 06:56] LABS: BASOPHILS % (AUTO) 0.6 % (0.0-2.0); EOSINOPHILS % (AUTO) 0.5 % (0.0-3.0); HEMATOCRIT 52.4 % (42.0-52.0); HEMOGLOBIN 15.8 G/DL (14.2-18.0); LYMPHOCYTES % (AUTO) 10.3 % (20.0-45.0); MEAN CORPUSCULAR VOLUME 98 FL (80-99); MONOCYTES % (AUTO) 7.7 % (1.0-10.0); NEUTROPHILS % (AUTO) 80.8 % (45.0-75.0); PLATELET COUNT 157 K/UL (150-450); RED BLOOD COUNT 5.34 M/UL (4.70-6.10); RED CELL DISTRIBUTION WIDTH 13.8 % (11.6-14.8); WHITE BLOOD COUNT 8.6 K/UL (4.8-10.8)
[2019-12-17 07:28] LABS: ALANINE AMINOTRANSFERASE 123 U/L (12-78); ALBUMIN 2.2 G/DL (3.4-5.0); ALBUMIN/GLOBULIN RATIO 0.4 (1.0-2.7); ALKALINE PHOSPHATASE 71 U/L (46-116); ANION GAP 10 mmol/L (5-15); ASPARTATE AMINO TRANSFERASE 150 U/L (15-37); BILIRUBIN,TOTAL 1.6 MG/DL (0.2-1.0); BLOOD UREA NITROGEN 45 mg/dL (7-18); CALCIUM 9.3 MG/DL (8.5-10.1); CARBON DIOXIDE 30 MMOL/L (21-32); CHLORIDE 112 MMOL/L (98-107); CREATININE 1.2 MG/DL (0.55-1.30); POTASSIUM 4.1 MMOL/L (3.5-5.1); SODIUM 152 MMOL/L (136-145)
[2019-12-17 07:35] LABS: BILIRUBIN,DIRECT 0.8 MG/DL (0.0-0.3)
[2019-12-17 07:36] LABS: PHOSPHORUS 3.5 MG/DL (2.5-4.9)
[2019-12-17 08:00] VITALS: BP 115/68
--- NOTE | 2019-12-17 08:02 | General Progress Note ---
Assessment/Plan Status: progressing Assessment/Plan: 1. History of Parkinson disease. 2. Arthritis. 3. Dysphagia. 4. Muscle weakness. 5. FTT 6. Elevated LFTS 7. COVID PNA NGT NGTF fu LFTS consider abd us may need PEG reglan increase to 10 mg will fu Subjective ROS Limited/Unobtainable: No Allergies: Coded Allergies: No Known Allergies (Unverified , 12/11/19) Objective Last 24 Hour Vital Signs Date Time Temp Pulse Resp B/P (MAP) Pulse Ox O2 Delivery O2 Flow Rate FiO2 12/17/19 04:00 97.9 99 24 112/68 (83) 100 12/17/19 00:00 97.9 98 24 109/73 (85) 99 12/16/19 21:00 Non-Rebreather 15.0 12/16/19 20:00 97.7 103 28 132/80 (97) 98 12/16/19 18:18 103 131/84 12/16/19 16:00 97.5 103 20 131/84 (100) 100 12/16/19 12:00 97.8 95 18 121/81 (94) 99 12/16/19 09:31 95 120/77 Intake and Output 12/16/19 12/17/19 19:00 07:00 Intake Total 60 ml 1307.5 ml Output Total 700 ml 550 ml Balance -640 ml 757.5 ml Free Water 280 ml IV Total 487.5 ml Tube Feeding 60 ml 540 ml Output Urine Total 700 ml 550 ml # Bowel Movements 2 Laboratory Tests 12/17/19 03:30: White Blood Count 8.6, Red Blood Count 5.34, Hemoglobin 15.8, Hematocrit 52.4H, Mean Corpuscular Volume 98, Mean Corpuscular Hemoglobin 29.7, Mean Corpuscular Hemoglobin Concent 30.2L, Red Cell Distribution Width 13.8, Platelet Count 157, Mean Platelet Volume 7.3, Neutrophils (%) (Auto) 80.8H, Lymphocytes (%) (Auto) 10.3L, Monocytes (%) (Auto) 7.7, Eosinophils (%) (Auto) 0.5, Basophils (%) (Auto ) 0.6, Sodium Level 152H, Potassium Level 4.1, Chloride Level 112H, Carbon Dioxide Level 30, Anion Gap 10, Blood Urea Nitrogen 45H, Creatinine 1.2, Estimat Glomerular Filtration Rate > 60, Glucose Level 121H, Uric Acid 1.8L, Calcium Level 9.3, Phosphorus Level 3.5, Magnesium Level 2.3, Total Bilirubin 1.6H, Direct Bilirubin 0.8H, Aspartate Amino Transf (AST/SGOT) 150H, Alanine Aminotransferase (ALT/SGPT) 123H, Alkaline Phosphatase 71, C-Reactive Protein, Quantitative 20.2H, Pro-B-Type Natriuretic Peptide 61, Total Protein 7.2, Albumin 2.2L, Globulin 5.0, Albumin/Globulin Ratio 0.4L, Hepatitis A IgM Antibody [Pending], Hepatitis B Surface Antigen [Pending], Hepatitis B Core IgM Antibody [Pending], Hepatitis C Antibody [Pending] Height (Feet): 6 Height (Inches): 1.00 Weight (Pounds): 170 General Appearance: lethargic EENT: normal ENT inspection Neck: supple Cardiovascular: normal rate Respiratory/Chest: decreased breath sounds Abdomen: normal bowel sounds, non tender, soft Extremities: non-tender Balaji Medina MD Dec 17, 2019 08:02
--- NOTE | 2019-12-17 08:18 | Cardiac Electrophysiology PN ---
Assessment/Plan Assessment/Plan 1. Sinus tachycardia due to dehydration and sepsis. Ruled out for IA 2. Sepsis. on antibiotic per ID. 3. Rhabdomyolysis and renal failure with creatinine of 2.3, improved to 1.4. FU Dr. Gonsales. 4. Parkinson disease and dementia. 5. Dysphagia, May need PEG per Dr Carol COLLAZO RN Subjective Subjective No new events. Covid positive from 12/11. NGT feeding. Awaiting swab results from 12/14. DNR now Objective Last 24 Hour Vital Signs Date Time Temp Pulse Resp B/P (MAP) Pulse Ox O2 Delivery O2 Flow Rate FiO2 12/17/19 08:00 97.9 108 20 115/68 (84) 100 12/17/19 04:00 97.9 99 24 112/68 (83) 100 12/17/19 00:00 97.9 98 24 109/73 (85) 99 12/16/19 21:00 Non-Rebreather 15.0 12/16/19 20:00 97.7 103 28 132/80 (97) 98 12/16/19 18:18 103 131/84 12/16/19 16:00 97.5 103 20 131/84 (100) 100 12/16/19 12:00 97.8 95 18 121/81 (94) 99 12/16/19 09:31 95 120/77 Intake and Output 12/16/19 12/17/19 19:00 07:00 Intake Total 60 ml 1307.5 ml Output Total 700 ml 550 ml Balance -640 ml 757.5 ml Free Water 280 ml IV Total 487.5 ml Tube Feeding 60 ml 540 ml Output Urine Total 700 ml 550 ml # Bowel Movements 2 Laboratory Tests Test 12/17/19 03:30 White Blood Count 8.6 K/UL (4.8-10.8) Red Blood Count 5.34 M/UL (4.70-6.10) Hemoglobin 15.8 G/DL (14.2-18.0) Hematocrit 52.4 % (42.0-52.0) H Mean Corpuscular Volume 98 FL (80-99) Mean Corpuscular Hemoglobin 29.7 PG (27.0-31.0) Mean Corpuscular Hemoglobin Concent 30.2 G/DL (32.0-36.0) L Red Cell Distribution Width 13.8 % (11.6-14.8) Platelet Count 157 K/UL (150-450) Mean Platelet Volume 7.3 FL (6.5-10.1) Neutrophils (%) (Auto) 80.8 % (45.0-75.0) H Lymphocytes (%) (Auto) 10.3 % (20.0-45.0) L Monocytes (%) (Auto) 7.7 % (1.0-10.0) Eosinophils (%) (Auto) 0.5 % (0.0-3.0) Basophils (%) (Auto) 0.6 % (0.0-2.0) Sodium Level 152 MMOL/L (136-145) H Potassium Level 4.1 MMOL/L (3.5-5.1) Chloride Level 112 MMOL/L (98-107) H Carbon Dioxide Level 30 MMOL/L (21-32) Anion Gap 10 mmol/L (5-15) Blood Urea Nitrogen 45 mg/dL (7-18) H Creatinine 1.2 MG/DL (0.55-1.30) Estimat Glomerular Filtration Rate > 60 mL/min (>60) Glucose Level 121 MG/DL (74-106) H Uric Acid 1.8 MG/DL (2.6-7.2) L Calcium Level 9.3 MG/DL (8.5-10.1) Phosphorus Level 3.5 MG/DL (2.5-4.9) Magnesium Level 2.3 MG/DL (1.8-2.4) Total Bilirubin 1.6 MG/DL (0.2-1.0) H Direct Bilirubin 0.8 MG/DL (0.0-0.3) H Aspartate Amino Transf (AST/SGOT) 150 U/L (15-37) H Alanine Aminotransferase (ALT/SGPT) 123 U/L (12-78) H Alkaline Phosphatase 71 U/L (46-116) C-Reactive Protein, Quantitative 20.2 mg/dL (0.00-0.90) H Pro-B-Type Natriuretic Peptide 61 pg/mL (0-125) Total Protein 7.2 G/DL (6.4-8.2) Albumin 2.2 G/DL (3.4-5.0) L Globulin 5.0 g/dL Albumin/Globulin Ratio 0.4 (1.0-2.7) L Hepatitis A IgM Antibody Pending Hepatitis B Surface Antigen Pending Hepatitis B Core IgM Antibody Pending Hepatitis C Antibody Pending Microbiology Date/Time Source Procedure Growth Status 12/15/19 00:00 Indwelling Cath Urine Culture - Preliminary NO GROWTH Resulted Objective HEAD AND NECK: no JVD. LUNGS: Coarse rhonchi. CARDIOVASCULAR: Shows regular S1 and S2 with no gallop or murmur. Tachycardic. ABDOMEN: Soft. EXTREMITIES: No pitting edema. Luis Daniel Harding MD Dec 17, 2019 08:18
[2019-12-17] MEDS: Docusate 100mg cap ORAL SCH (08:29)
[2019-12-17] MEDS: Pantoprazole Inj IVP SCH ×2 (08:30→20:39)
[2019-12-17] MEDS: Levodopa/Carbidopa 25/100 tab ORAL SCH ×3 (08:31→17:23)
--- NOTE | 2019-12-17 10:13 | Pulmonology Progress Note ---
Subjective ROS Limited/Unobtainable: No Interval Events: Saturating well on nasal O2; AGB shows resp alkalosis; now on ventimask Constitutional: Denies: fever HEENT: Repors: no symptoms Respiratory: Reports: no symptoms Cardiovascular: Reports: no symptoms Gastrointestinal/Abdominal: Reports: no symptoms Genitourinary: Reports: no symptoms Allergies: Coded Allergies: No Known Allergies (Unverified , 12/11/19) Objective Last 24 Hour Vital Signs Date Time Temp Pulse Resp B/P (MAP) Pulse Ox O2 Delivery O2 Flow Rate FiO2 12/17/19 09:00 Non-Rebreather 15.0 12/17/19 08:29 108 115/68 12/17/19 08:00 97.9 108 20 115/68 (84) 100 12/17/19 04:00 97.9 99 24 112/68 (83) 100 12/17/19 00:00 97.9 98 24 109/73 (85) 99 12/16/19 21:00 Non-Rebreather 15.0 12/16/19 20:00 97.7 103 28 132/80 (97) 98 12/16/19 18:18 103 131/84 12/16/19 16:00 97.5 103 20 131/84 (100) 100 12/16/19 12:00 97.8 95 18 121/81 (94) 99 Intake and Output 12/16/19 12/17/19 19:00 07:00 Intake Total 60 ml 1385.0 ml Output Total 700 ml 550 ml Balance -640 ml 835.0 ml Free Water 280 ml IV Total 565.0 ml Tube Feeding 60 ml 540 ml Output Urine Total 700 ml 550 ml # Bowel Movements 2 General Appearance: no acute distress HEENT: normocephalic Respiratory: chest wall non-tender Cardiovascular: normal peripheral pulses Abdomen: normal bowel sounds Microbiology Date/Time Source Procedure Growth Status 12/15/19 00:00 Indwelling Cath Urine Culture - Preliminary NO GROWTH Resulted Laboratory Tests 12/17/19 03:30: White Blood Count 8.6, Red Blood Count 5.34, Hemoglobin 15.8, Hematocrit 52.4H, Mean Corpuscular Volume 98, Mean Corpuscular Hemoglobin 29.7, Mean Corpuscular Hemoglobin Concent 30.2L, Red Cell Distribution Width 13.8, Platelet Count 157, Mean Platelet Volume 7.3, Neutrophils (%) (Auto) 80.8H, Lymphocytes (%) (Auto) 10.3L, Monocytes (%) (Auto) 7.7, Eosinophils (%) (Auto) 0.5, Basophils (%) (Auto ) 0.6, Sodium Level 152H, Potassium Level 4.1, Chloride Level 112H, Carbon Dioxide Level 30, Anion Gap 10, Blood Urea Nitrogen 45H, Creatinine 1.2, Estimat Glomerular Filtration Rate > 60, Glucose Level 121H, Uric Acid 1.8L, Calcium Level 9.3, Phosphorus Level 3.5, Magnesium Level 2.3, Total Bilirubin 1.6H, Direct Bilirubin 0.8H, Aspartate Amino Transf (AST/SGOT) 150H, Alanine Aminotransferase (ALT/SGPT) 123H, Alkaline Phosphatase 71, C-Reactive Protein, Quantitative 20.2H, Pro-B-Type Natriuretic Peptide 61, Total Protein 7.2, Albumin 2.2L, Globulin 5.0, Albumin/Globulin Ratio 0.4L, Hepatitis A IgM Antibody [Pending], Hepatitis B Surface Antigen [Pending], Hepatitis B Core IgM Antibody [Pending], Hepatitis C Antibody [Pending] Current Medications Medications (Trade) Dose Ordered Sig/Faby Route PRN Reason Start Time Stop Time Status Last Admin Dose Admin Acetaminophen (Tylenol) 650 mg Q4H PRN ORAL mild pain/temp 12/14/19 08:57 01/13/20 08:56 12/14/19 09:01 Acetaminophen (Tylenol) 650 mg Q4H PRN RECTAL Mild Pain / temp 12/12/19 07:45 01/11/20 07:44 12/13/19 01:37 Amlodipine Besylate (Norvasc) 2.5 mg BID ORAL 12/15/19 18:00 01/11/20 17:59 12/17/19 08:29 Carbidopa/Levodopa (Sinemet 25/100) 1 tab TID ORAL 12/14/19 13:00 01/13/20 12:59 12/17/19 08:31 Dextrose 1,000 ml @ 50 mls/hr Q20H IV 12/15/19 10:30 01/14/20 10:29 12/17/19 05:27 Docusate Sodium (Colace) 100 mg THREE TIMES A DAY ORAL 12/12/19 13:00 01/11/20 12:59 12/17/19 08:29 Metoclopramide HCl (Reglan) 10 mg Q6H IVP 12/17/19 12:30 01/16/20 12:29 Metoclopramide HCl (Reglan) 10 mg Q6H PRN IVP Nausea & Vomiting 12/15/19 10:45 01/14/20 10:44 Pantoprazole (Protonix) 40 mg EVERY 12 HOURS IVP 12/12/19 21:00 01/11/20 20:59 12/17/19 08:30 Piperacillin Sod/ Tazobactam Sod 3.375 gm/Sodium Chloride 110 ml @ 27.5 mls/hr EVERY 8 HOURS IVPB 12/15/19 16:00 12/20/19 15:59 12/17/19 05:27 Assessment/Plan Assessment/Plan IMPRESSION: 1. COVID-19 pneumonia. 2. Parkinson's and dementia. 3. Transaminitis. DISCUSSION: The patient's x-ray is clear with some chronic-appearing changes, currently saturating well on nasal oxygen. Placed by RT on ventimask; will again request to decrease FiO2 I will follow as structural design engineer. Dhara Barrios Omar Syed MD Dec 17, 2019 10:13
--- NOTE | 2019-12-17 11:34 | Nephrology Progress Note ---
Assessment/Plan Problem List: (1) JAYDEN (acute kidney injury) (2) Dehydration (3) Fever (4) Pneumonia due to COVID-19 virus Assessment This 74-year-old male is admitted with fever and possible COVID positive infection On presentation the patient has acute renal failure which suggests a pattern of mainly dehydration Most likely has underlying chronic kidney disease Other conditions include Parkinson's and dementia Evidence of UTI Elevated CK possible rhabdo . Plan December 16: Serum creatinine stable. On nonrebreathing mask. Continue per pulmonary and ID. Last chest x-ray from December 14 indicative of bilateral pleural effusion right more than the left. December 15: On non-rebreathing mask. Today's labs reviewed. Renal parameters stable. Creatinine 1.4. Continue per pulmonary and ID. December 14: NGT in place however feeding on hold due to his high residual. Patient is slightly tachypneic. ABG noted. Chest x-ray pending. Patient remains on Rocephin. Patient is DNR. Will change IV to D5W 50 cc an hour while feeding is on hold. Will discuss with the consultants as the patient may need a more broader spectrum antibiotics. Reglan intravenously initiated. Patient is stable from renal standpoint of view. Previously: Remains n.p.o. pending GI advice Keep blood pressure in check IV hydration, monitor CPK and liver function tests. Renal parameters improving. Monitor renal parameters Fish catheter May need broad-spectrum antibiotics, defer to ID Per consultants Chest x-ray: Impression: Extensive infiltrate throughout the right mid and lower lung, new since prior exam of 2 days earlier, likely on the basis of pneumonia. Left basilar atelectasis Subjective ROS Limited/Unobtainable: No Constitutional: Reports: malaise, weakness Objective Objective Last 24 Hour Vital Signs Date Time Temp Pulse Resp B/P (MAP) Pulse Ox O2 Delivery O2 Flow Rate FiO2 12/17/19 09:00 Non-Rebreather 15.0 12/17/19 08:29 108 115/68 12/17/19 08:00 97.9 108 20 115/68 (84) 100 12/17/19 04:00 97.9 99 24 112/68 (83) 100 12/17/19 00:00 97.9 98 24 109/73 (85) 99 12/16/19 21:00 Non-Rebreather 15.0 12/16/19 20:00 97.7 103 28 132/80 (97) 98 12/16/19 18:18 103 131/84 12/16/19 16:00 97.5 103 20 131/84 (100) 100 12/16/19 12:00 97.8 95 18 121/81 (94) 99 Intake and Output 12/16/19 12/17/19 19:00 07:00 Intake Total 60 ml 1385.0 ml Output Total 700 ml 550 ml Balance -640 ml 835.0 ml Free Water 280 ml IV Total 565.0 ml Tube Feeding 60 ml 540 ml Output Urine Total 700 ml 550 ml # Bowel Movements 2 Laboratory Tests 12/17/19 03:30: White Blood Count 8.6, Red Blood Count 5.34, Hemoglobin 15.8, Hematocrit 52.4H, Mean Corpuscular Volume 98, Mean Corpuscular Hemoglobin 29.7, Mean Corpuscular Hemoglobin Concent 30.2L, Red Cell Distribution Width 13.8, Platelet Count 157, Mean Platelet Volume 7.3, Neutrophils (%) (Auto) 80.8H, Lymphocytes (%) (Auto) 10.3L, Monocytes (%) (Auto) 7.7, Eosinophils (%) (Auto) 0.5, Basophils (%) (Auto ) 0.6, Sodium Level 152H, Potassium Level 4.1, Chloride Level 112H, Carbon Dioxide Level 30, Anion Gap 10, Blood Urea Nitrogen 45H, Creatinine 1.2, Estimat Glomerular Filtration Rate > 60, Glucose Level 121H, Uric Acid 1.8L, Calcium Level 9.3, Phosphorus Level 3.5, Magnesium Level 2.3, Total Bilirubin 1.6H, Direct Bilirubin 0.8H, Aspartate Amino Transf (AST/SGOT) 150H, Alanine Aminotransferase (ALT/SGPT) 123H, Alkaline Phosphatase 71, C-Reactive Protein, Quantitative 20.2H, Pro-B-Type Natriuretic Peptide 61, Total Protein 7.2, Albumin 2.2L, Globulin 5.0, Albumin/Globulin Ratio 0.4L, Hepatitis A IgM Antibody [Pending], Hepatitis B Surface Antigen [Pending], Hepatitis B Core IgM Antibody [Pending], Hepatitis C Antibody [Pending] Height (Feet): 6 Height (Inches): 1.00 Weight (Pounds): 170 General Appearance: no apparent distress EENT: other - On nonrebreathing mask Cardiovascular: tachycardia Respiratory/Chest: decreased breath sounds Abdomen: distended Brent Gonsales MD Dec 17, 2019 11:34
[2019-12-17 12:00] VITALS: BP 111/67
[2019-12-17] MEDS: Docusate 100mg/10ml Liq NG SCH ×2 (13:05→17:23)
--- NOTE | 2019-12-17 15:06 | Infectious Diseases Prog Note ---
Assessment/Plan Assessment/Plan IMPRESSION: COVID-19 pneumonia Dysphagia Dementia, Hypertension, , Acute renal failure, Rhabdomyolysis, Elevation of transaminase & bilirubin Hematuria RECOMMENDATIONS: Continue Zosyn UA & urine culture Subjective ROS Limited/Unobtainable: Yes Constitutional: Reports: fever, other - Wn=481.7 Genitourinary: Reports: hematuria Allergies: Coded Allergies: No Known Allergies (Unverified , 12/11/19) Objective Vital Signs Last 24 Hour Vital Signs Date Time Temp Pulse Resp B/P (MAP) Pulse Ox O2 Delivery O2 Flow Rate FiO2 12/17/19 12:21 101.7 12/17/19 12:00 101.7 118 20 111/67 (82) 100 12/17/19 09:00 Non-Rebreather 15.0 12/17/19 08:29 108 115/68 12/17/19 08:00 97.9 108 20 115/68 (84) 100 12/17/19 04:00 97.9 99 24 112/68 (83) 100 12/17/19 00:00 97.9 98 24 109/73 (85) 99 12/16/19 21:00 Non-Rebreather 15.0 12/16/19 20:00 97.7 103 28 132/80 (97) 98 12/16/19 18:18 103 131/84 12/16/19 16:00 97.5 103 20 131/84 (100) 100 Height (Feet): 6 Height (Inches): 1.00 Weight (Pounds): 170 General Appearance: no acute distress HEENT: mucous membranes moist Respiratory/Chest: other - oxygen by cannula Abdomen: soft, non tender Extremities: no edema Neurologic/Psychiatric: aphasia Microbiology Date/Time Source Procedure Growth Status 12/15/19 00:00 Indwelling Cath Urine Culture - Preliminary NO GROWTH Resulted Laboratory Tests Test 12/17/19 03:30 White Blood Count 8.6 K/UL (4.8-10.8) Red Blood Count 5.34 M/UL (4.70-6.10) Hemoglobin 15.8 G/DL (14.2-18.0) Hematocrit 52.4 % (42.0-52.0) H Mean Corpuscular Volume 98 FL (80-99) Mean Corpuscular Hemoglobin 29.7 PG (27.0-31.0) Mean Corpuscular Hemoglobin Concent 30.2 G/DL (32.0-36.0) L Red Cell Distribution Width 13.8 % (11.6-14.8) Platelet Count 157 K/UL (150-450) Mean Platelet Volume 7.3 FL (6.5-10.1) Neutrophils (%) (Auto) 80.8 % (45.0-75.0) H Lymphocytes (%) (Auto) 10.3 % (20.0-45.0) L Monocytes (%) (Auto) 7.7 % (1.0-10.0) Eosinophils (%) (Auto) 0.5 % (0.0-3.0) Basophils (%) (Auto) 0.6 % (0.0-2.0) Sodium Level 152 MMOL/L (136-145) H Potassium Level 4.1 MMOL/L (3.5-5.1) Chloride Level 112 MMOL/L (98-107) H Carbon Dioxide Level 30 MMOL/L (21-32) Anion Gap 10 mmol/L (5-15) Blood Urea Nitrogen 45 mg/dL (7-18) H Creatinine 1.2 MG/DL (0.55-1.30) Estimat Glomerular Filtration Rate > 60 mL/min (>60) Glucose Level 121 MG/DL (74-106) H Uric Acid 1.8 MG/DL (2.6-7.2) L Calcium Level 9.3 MG/DL (8.5-10.1) Phosphorus Level 3.5 MG/DL (2.5-4.9) Magnesium Level 2.3 MG/DL (1.8-2.4) Total Bilirubin 1.6 MG/DL (0.2-1.0) H Direct Bilirubin 0.8 MG/DL (0.0-0.3) H Aspartate Amino Transf (AST/SGOT) 150 U/L (15-37) H Alanine Aminotransferase (ALT/SGPT) 123 U/L (12-78) H Alkaline Phosphatase 71 U/L (46-116) C-Reactive Protein, Quantitative 20.2 mg/dL (0.00-0.90) H Pro-B-Type Natriuretic Peptide 61 pg/mL (0-125) Total Protein 7.2 G/DL (6.4-8.2) Albumin 2.2 G/DL (3.4-5.0) L Globulin 5.0 g/dL Albumin/Globulin Ratio 0.4 (1.0-2.7) L Hepatitis A IgM Antibody Pending Hepatitis B Surface Antigen Pending Hepatitis B Core IgM Antibody Pending Hepatitis C Antibody Pending Current Medications Medications (Trade) Dose Ordered Sig/Faby Route PRN Reason Start Time Stop Time Status Last Admin Dose Admin Acetaminophen (Tylenol) 650 mg Q4H PRN ORAL mild pain/temp 12/14/19 08:57 01/13/20 08:56 12/17/19 11:51 Acetaminophen (Tylenol) 650 mg Q4H PRN RECTAL Mild Pain / temp 12/12/19 07:45 01/11/20 07:44 12/13/19 01:37 Amlodipine Besylate (Norvasc) 2.5 mg BID ORAL 12/15/19 18:00 01/11/20 17:59 12/17/19 08:29 Carbidopa/Levodopa (Sinemet 25/100) 1 tab TID ORAL 12/14/19 13:00 01/13/20 12:59 12/17/19 13:04 Dextrose 1,000 ml @ 50 mls/hr Q20H IV 12/15/19 10:30 01/14/20 10:29 12/17/19 05:27 Docusate Sodium (Colace) 100 mg THREE TIMES A DAY NG 12/17/19 13:00 01/16/20 12:59 12/17/19 13:05 Metoclopramide HCl (Reglan) 10 mg Q6H IVP 12/17/19 12:30 01/16/20 12:29 12/17/19 11:51 Metoclopramide HCl (Reglan) 10 mg Q6H PRN IVP Nausea & Vomiting 12/15/19 10:45 01/14/20 10:44 Pantoprazole (Protonix) 40 mg EVERY 12 HOURS IVP 12/12/19 21:00 01/11/20 20:59 12/17/19 08:30 Piperacillin Sod/ Tazobactam Sod 3.375 gm/Sodium Chloride 110 ml @ 27.5 mls/hr EVERY 8 HOURS IVPB 12/15/19 16:00 12/20/19 15:59 12/17/19 13:18 Kelvin Lafleur MD 16, 2020 15:05
[2019-12-17 16:00] VITALS: BP 105/71
--- NOTE | 2019-12-17 17:06 | General Progress Note ---
Assessment/Plan Problem List: (1) Failure to thrive SNOMED: 00483384 (2) Dehydration ICD Codes: E86.0 - Dehydration SNOMED: 51123178 (3) Fever ICD Codes: R50.9 - Fever, unspecified SNOMED: 645383127 (4) Pneumonia due to COVID-19 virus ICD Codes: U07.1 - COVID-19; J12.89 - Other viral pneumonia SNOMED: 106616970, 236498510 (5) JAYDEN (acute kidney injury) ICD Codes: N17.9 - Acute kidney failure, unspecified SNOMED: 2826590, 44070714 Status: progressing Assessment/Plan: covid positive pna prn oxygen worsening hypernatremia /dehydration azotemia needs iv fluids persistent elevated lft is improving Subjective ROS Limited/Unobtainable: Yes Allergies: Coded Allergies: No Known Allergies (Unverified , 12/11/19) Objective Last 24 Hour Vital Signs Date Time Temp Pulse Resp B/P (MAP) Pulse Ox O2 Delivery O2 Flow Rate FiO2 12/17/19 16:00 99.1 104 20 105/71 (82) 100 12/17/19 12:21 101.7 12/17/19 12:00 101.7 118 20 111/67 (82) 100 12/17/19 09:00 Non-Rebreather 15.0 12/17/19 08:29 108 115/68 12/17/19 08:00 97.9 108 20 115/68 (84) 100 12/17/19 04:00 97.9 99 24 112/68 (83) 100 12/17/19 00:00 97.9 98 24 109/73 (85) 99 12/16/19 21:00 Non-Rebreather 15.0 12/16/19 20:00 97.7 103 28 132/80 (97) 98 12/16/19 18:18 103 131/84 Intake and Output 12/16/19 12/17/19 19:00 07:00 Intake Total 60 ml 1385.0 ml Output Total 700 ml 550 ml Balance -640 ml 835.0 ml Free Water 280 ml IV Total 565.0 ml Tube Feeding 60 ml 540 ml Output Urine Total 700 ml 550 ml # Bowel Movements 2 Laboratory Tests 12/17/19 03:30: White Blood Count 8.6, Red Blood Count 5.34, Hemoglobin 15.8, Hematocrit 52.4H, Mean Corpuscular Volume 98, Mean Corpuscular Hemoglobin 29.7, Mean Corpuscular Hemoglobin Concent 30.2L, Red Cell Distribution Width 13.8, Platelet Count 157, Mean Platelet Volume 7.3, Neutrophils (%) (Auto) 80.8H, Lymphocytes (%) (Auto) 10.3L, Monocytes (%) (Auto) 7.7, Eosinophils (%) (Auto) 0.5, Basophils (%) (Auto ) 0.6, Sodium Level 152H, Potassium Level 4.1, Chloride Level 112H, Carbon Dioxide Level 30, Anion Gap 10, Blood Urea Nitrogen 45H, Creatinine 1.2, Estimat Glomerular Filtration Rate > 60, Glucose Level 121H, Uric Acid 1.8L, Calcium Level 9.3, Phosphorus Level 3.5, Magnesium Level 2.3, Total Bilirubin 1.6H, Direct Bilirubin 0.8H, Aspartate Amino Transf (AST/SGOT) 150H, Alanine Aminotransferase (ALT/SGPT) 123H, Alkaline Phosphatase 71, C-Reactive Protein, Quantitative 20.2H, Pro-B-Type Natriuretic Peptide 61, Total Protein 7.2, Albumin 2.2L, Globulin 5.0, Albumin/Globulin Ratio 0.4L, Hepatitis A IgM Antibody [Pending], Hepatitis B Surface Antigen [Pending], Hepatitis B Core IgM Antibody [Pending], Hepatitis C Antibody [Pending] 12/17/19 16:00: Urine Color [Pending], Urine Appearance [Pending], Urine pH [Pending], Urine Specific [place] [Pending], Urine Protein [Pending], Urine Glucose (UA) [Pending ], Urine Ketones [Pending], Urine Blood [Pending], Urine Nitrite [Pending], Urine Bilirubin [Pending], Urine Urobilinogen [Pending], Urine Leukocyte Esterase [Pending] Height (Feet): 6 Height (Inches): 1.00 Weight (Pounds): 170 Kevin Anderson MD Dec 17, 2019 17:06
[2019-12-17 17:08] LABS: APPEARANCE,URINE SLIGHTLY CLOUDY; BILIRUBIN, URINE 2+ (NEGATIVE); GLUCOSE, URINE (UA) NEGATIVE (NEGATIVE); KETONES,URINE 1+ (NEGATIVE); LEUKOCYTE ESTERASE ,URINE 1+ (NEGATIVE); NITRITE,URINE POSITIVE (NEGATIVE); PH,URINE 5 (4.5-8.0); PROTEIN,URINE 2+ (NEGATIVE); UROBILINOGEN,URINE 12 MG/DL (0.0-1.0)
[2019-12-17 17:19] LABS: COLOR,URINE AMBER
[2019-12-17 20:00] VITALS: BP 98/66
--- NOTE | 2019-12-17 20:16 | Psych Consult Progress Note ---
Psychiatry Progress Note Psychiatry Progress Note Subjective the pt is calm not speaking. no tremors. dec agitation poor memory Medications Current Medications Medications (Trade) Dose Ordered Sig/Faby Route PRN Reason Start Time Stop Time Status Last Admin Dose Admin Acetaminophen (Tylenol) 650 mg Q4H PRN ORAL mild pain/temp 12/14/19 08:57 01/13/20 08:56 12/17/19 11:51 Acetaminophen (Tylenol) 650 mg Q4H PRN RECTAL Mild Pain / temp 12/12/19 07:45 01/11/20 07:44 12/13/19 01:37 Amlodipine Besylate (Norvasc) 2.5 mg BID ORAL 12/15/19 18:00 01/11/20 17:59 12/17/19 17:23 Carbidopa/Levodopa (Sinemet 25/100) 1 tab TID ORAL 12/14/19 13:00 01/13/20 12:59 12/17/19 17:23 Dextrose 1,000 ml @ 50 mls/hr Q20H IV 12/15/19 10:30 01/14/20 10:29 12/17/19 05:27 Docusate Sodium (Colace) 100 mg THREE TIMES A DAY NG 12/17/19 13:00 01/16/20 12:59 12/17/19 17:23 Metoclopramide HCl (Reglan) 10 mg Q6H IVP 12/17/19 12:30 01/16/20 12:29 12/17/19 17:26 Metoclopramide HCl (Reglan) 10 mg Q6H PRN IVP Nausea & Vomiting 12/15/19 10:45 01/14/20 10:44 Pantoprazole (Protonix) 40 mg EVERY 12 HOURS IVP 12/12/19 21:00 01/11/20 20:59 12/17/19 08:30 Piperacillin Sod/ Tazobactam Sod 3.375 gm/Sodium Chloride 110 ml @ 27.5 mls/hr EVERY 8 HOURS IVPB 12/15/19 16:00 12/20/19 15:59 12/17/19 13:18 Allergies: Coded Allergies: No Known Allergies (Unverified , 12/11/19) Objective Data Height (Feet): 6 Height (Inches): 1.00 Weight (Pounds): 170 General Appearance: WD/WN, no apparent distress, alert, confused Appearance: no abnormalities noted Behavior Mannerisms: poor eye contact Mental Status Exam - Affect: flat Mental Status Exam - Mood: apathetic Mental Status Exam - Suicidal: not present Assessment/Plan Status: progressing Assessment/Plan: ASSESSMENT: 1. Parkinson disease. 2. Dementia 3. Anxiety disorder. PLAN: 1. The patient is on Sinemet. 2. dw pmBhavesh Peace MD Dec 17, 2019 20:15
[2019-12-18] VITALS: BP 96/67
[2019-12-18] MEDS: Metoclopramide 10mg/2ml Inj IVP SCH ×4 (00:51→17:56)
[2019-12-18 04:00] VITALS: BP 132/78
[2019-12-18] MEDS: Piperacillin/Tazobactam 3.375 GM in NS 110 ML IVPB SCH ×3 (06:02→21:30)
[2019-12-18 06:38] LABS: HEMATOCRIT 47.5 % (42.0-52.0); HEMOGLOBIN 14.8 G/DL (14.2-18.0); MEAN CORPUSCULAR VOLUME 98 FL (80-99); PLATELET COUNT 201 K/UL (150-450); RED BLOOD COUNT 4.83 M/UL (4.70-6.10); WHITE BLOOD COUNT 18.8 K/UL (4.8-10.8)
[2019-12-18 07:14] LABS: ANION GAP 8 mmol/L (5-15); BLOOD UREA NITROGEN 47 mg/dL (7-18); CALCIUM 9.1 MG/DL (8.5-10.1); CARBON DIOXIDE 31 MMOL/L (21-32); CHLORIDE 113 MMOL/L (98-107); CREATININE 1.3 MG/DL (0.55-1.30); POTASSIUM 4.2 MMOL/L (3.5-5.1); SODIUM 152 MMOL/L (136-145)
[2019-12-18 08:00] VITALS: BP 128/80
[2019-12-18] MEDS: Docusate 100mg/10ml Liq NG SCH ×3 (09:00→17:56)
[2019-12-18] MEDS: Pantoprazole Inj IVP SCH ×2 (09:00→21:30)
[2019-12-18] MEDS: Levodopa/Carbidopa 25/100 tab ORAL SCH ×3 (09:01→17:56)
--- NOTE | 2019-12-18 09:18 | General Progress Note ---
Assessment/Plan Status: progressing Assessment/Plan: 1. History of Parkinson disease. 2. Arthritis. 3. Dysphagia. 4. Muscle weakness. 5. FTT 6. Elevated LFTS 7. COVID PNA NGT NGTF fu LFTS consider abd us plan PEG for tomorrow. D/W the family reglan will fu Subjective ROS Limited/Unobtainable: No Allergies: Coded Allergies: No Known Allergies (Unverified , 12/11/19) Objective Last 24 Hour Vital Signs Date Time Temp Pulse Resp B/P (MAP) Pulse Ox O2 Delivery O2 Flow Rate FiO2 12/18/19 09:01 103 132/80 12/18/19 04:00 99.0 100 22 132/78 (96) 94 12/18/19 00:00 99.0 100 20 96/67 (77) 94 12/17/19 21:13 Non-Rebreather 15.0 12/17/19 20:00 99.0 73 20 98/66 (77) 98 12/17/19 17:23 104 105/71 12/17/19 16:00 99.1 104 20 105/71 (82) 100 12/17/19 12:21 101.7 12/17/19 12:00 101.7 118 20 111/67 (82) 100 Intake and Output 12/17/19 12/18/19 19:00 07:00 Intake Total 1075.0 ml 640 ml Output Total 600 ml Balance 475.0 ml 640 ml Free Water 100 ml 100 ml IV Total 255.0 ml Tube Feeding 720 ml 540 ml Output Urine Total 600 ml # Bowel Movements 1 Laboratory Tests 12/17/19 16:00: Urine Color Jeniffer, Urine Appearance Slightly cloudy, Urine pH 5, Urine Specific [place] 1.005, Urine Protein 2+H, Urine Glucose (UA) Negative, Urine Ketones 1+H , Urine Blood 4+H, Urine Nitrite PositiveH, Urine Bilirubin 2+H, Urine Ictotest Positive, Urine Urobilinogen 12H, Urine Leukocyte Esterase 1+H, Urine RBC 20-30H , Urine WBC 0-2, Urine Squamous Epithelial Cells None, Urine Bacteria ModerateH 12/18/19 05:00: White Blood Count 18.8#H, Red Blood Count 4.83, Hemoglobin 14.8, Hematocrit 47.5 , Mean Corpuscular Volume 98, Mean Corpuscular Hemoglobin 30.7, Mean Corpuscular Hemoglobin Concent 31.3L, Red Cell Distribution Width 14.0, Platelet Count 201, Mean Platelet Volume 8.4, Neutrophils (%) (Auto) , Lymphocytes (%) (Auto) , Monocytes (%) (Auto) , Eosinophils (%) (Auto) , Basophils (%) (Auto) , Neutrophils % (Manual) [Pending], Lymphocytes % (Manual) [Pending], Platelet Estimate [Pending], Platelet Morphology [Pending], Sodium Level 152H, Potassium Level 4.2, Chloride Level 113H, Carbon Dioxide Level 31, Anion Gap 8, Blood Urea Nitrogen 47H, Creatinine 1.3, Estimat Glomerular Filtration Rate > 60, Glucose Level 133H, Calcium Level 9.1 Height (Feet): 6 Height (Inches): 1.00 Weight (Pounds): 170 General Appearance: no apparent distress EENT: normal ENT inspection Neck: supple Cardiovascular: normal rate Respiratory/Chest: decreased breath sounds Abdomen: normal bowel sounds, non tender, soft Extremities: non-tender Balaji Medina MD Dec 18, 2019 09:18
--- NOTE | 2019-12-18 10:10 | Pulmonology Progress Note ---
Subjective ROS Limited/Unobtainable: No Interval Events: Saturating well on nasal O2 Constitutional: Reports: fever, other - Vj=007.7 HEENT: Repors: no symptoms Respiratory: Reports: no symptoms Cardiovascular: Reports: no symptoms Gastrointestinal/Abdominal: Reports: no symptoms Genitourinary: Reports: no symptoms Allergies: Coded Allergies: No Known Allergies (Unverified , 12/11/19) Objective Last 24 Hour Vital Signs Date Time Temp Pulse Resp B/P (MAP) Pulse Ox O2 Delivery O2 Flow Rate FiO2 12/18/19 09:01 103 132/80 12/18/19 04:00 99.0 100 22 132/78 (96) 94 12/18/19 00:00 99.0 100 20 96/67 (77) 94 12/17/19 21:13 Non-Rebreather 15.0 12/17/19 20:00 99.0 73 20 98/66 (77) 98 12/17/19 17:23 104 105/71 12/17/19 16:00 99.1 104 20 105/71 (82) 100 12/17/19 12:21 101.7 12/17/19 12:00 101.7 118 20 111/67 (82) 100 Intake and Output 12/17/19 12/18/19 19:00 07:00 Intake Total 1075.0 ml 640 ml Output Total 600 ml Balance 475.0 ml 640 ml Free Water 100 ml 100 ml IV Total 255.0 ml Tube Feeding 720 ml 540 ml Output Urine Total 600 ml # Bowel Movements 1 General Appearance: no acute distress HEENT: normocephalic Respiratory: chest wall non-tender Cardiovascular: normal peripheral pulses Abdomen: normal bowel sounds Microbiology Date/Time Source Procedure Growth Status 12/17/19 16:00 Urine,Clean Catch Urine Culture - Preliminary NO GROWTH Resulted Laboratory Tests 12/17/19 16:00: Urine Color Jeniffer, Urine Appearance Slightly cloudy, Urine pH 5, Urine Specific [place] 1.005, Urine Protein 2+H, Urine Glucose (UA) Negative, Urine Ketones 1+H , Urine Blood 4+H, Urine Nitrite PositiveH, Urine Bilirubin 2+H, Urine Ictotest Positive, Urine Urobilinogen 12H, Urine Leukocyte Esterase 1+H, Urine RBC 20-30H , Urine WBC 0-2, Urine Squamous Epithelial Cells None, Urine Bacteria ModerateH 12/18/19 05:00: White Blood Count 18.8#H, Red Blood Count 4.83, Hemoglobin 14.8, Hematocrit 47.5 , Mean Corpuscular Volume 98, Mean Corpuscular Hemoglobin 30.7, Mean Corpuscular Hemoglobin Concent 31.3L, Red Cell Distribution Width 14.0, Platelet Count 201, Mean Platelet Volume 8.4, Neutrophils (%) (Auto) , Lymphocytes (%) (Auto) , Monocytes (%) (Auto) , Eosinophils (%) (Auto) , Basophils (%) (Auto) , Neutrophils % (Manual) [Pending], Lymphocytes % (Manual) [Pending], Platelet Estimate [Pending], Platelet Morphology [Pending], Sodium Level 152H, Potassium Level 4.2, Chloride Level 113H, Carbon Dioxide Level 31, Anion Gap 8, Blood Urea Nitrogen 47H, Creatinine 1.3, Estimat Glomerular Filtration Rate > 60, Glucose Level 133H, Calcium Level 9.1 Current Medications Medications (Trade) Dose Ordered Sig/Faby Route PRN Reason Start Time Stop Time Status Last Admin Dose Admin Acetaminophen (Tylenol) 650 mg Q4H PRN ORAL mild pain/temp 12/14/19 08:57 01/13/20 08:56 12/17/19 11:51 Acetaminophen (Tylenol) 650 mg Q4H PRN RECTAL Mild Pain / temp 12/12/19 07:45 01/11/20 07:44 12/13/19 01:37 Amlodipine Besylate (Norvasc) 2.5 mg BID ORAL 12/15/19 18:00 01/11/20 17:59 12/18/19 09:01 Carbidopa/Levodopa (Sinemet 25/100) 1 tab TID ORAL 12/14/19 13:00 01/13/20 12:59 12/18/19 09:01 Dextrose 1,000 ml @ 75 mls/hr [id number] IV 12/18/19 08:30 01/14/20 08:29 12/18/19 08:30 Docusate Sodium (Colace) 100 mg THREE TIMES A DAY NG 12/17/19 13:00 01/16/20 12:59 12/18/19 09:00 Metoclopramide HCl (Reglan) 10 mg Q6H IVP 12/17/19 12:30 01/16/20 12:29 12/18/19 06:02 Metoclopramide HCl (Reglan) 10 mg Q6H PRN IVP Nausea & Vomiting 12/15/19 10:45 01/14/20 10:44 Pantoprazole (Protonix) 40 mg EVERY 12 HOURS IVP 12/12/19 21:00 01/11/20 20:59 12/18/19 09:00 Piperacillin Sod/ Tazobactam Sod 3.375 gm/Sodium Chloride 110 ml @ 27.5 mls/hr EVERY 8 HOURS IVPB 12/15/19 16:00 12/20/19 15:59 12/18/19 06:02 Assessment/Plan Assessment/Plan IMPRESSION: 1. COVID-19 pneumonia. 2. Parkinson's and dementia. 3. Transaminitis. DISCUSSION: The patient's x-ray is clear with some chronic-appearing changes, currently saturating well on nasal oxygen. Now on nasal O2 via nasal prongs Dhara Barrios Omar Syed MD Dec 18, 2019 10:10
--- NOTE | 2019-12-18 10:32 | Diagnostic Imaging Report ---
Procedure: XRAY Chest 1v Reason for study: Cough. Comparison films: 12/15/2019. FINDINGS: NG tube remains in place. There is slightly improved basilar infiltrates. Cardiac and mediastinal silhouette are within normal limits. Small left effusion noted. The bony thorax appear unremarkable. IMPRESSION: Slightly improved basilar infiltrates.
[2019-12-18 12:00] VITALS: BP 132/83
--- NOTE | 2019-12-18 12:38 | Infectious Diseases Prog Note ---
Assessment/Plan Assessment/Plan IMPRESSION: COVID-19 pneumonia Dysphagia Dementia, Hypertension, , Acute renal failure, Rhabdomyolysis, Elevation of transaminase & bilirubin Hematuria Leukocytosis RECOMMENDATIONS: Continue Zosyn Will have PEG placement tomorrow Subjective ROS Limited/Unobtainable: Yes Constitutional: Denies: fever Allergies: Coded Allergies: No Known Allergies (Unverified , 12/11/19) Objective Vital Signs Last 24 Hour Vital Signs Date Time Temp Pulse Resp B/P (MAP) Pulse Ox O2 Delivery O2 Flow Rate FiO2 12/18/19 09:01 103 132/80 12/18/19 09:00 Nasal Cannula 3.0 12/18/19 08:00 99.0 103 23 128/80 (96) 96 12/18/19 04:00 99.0 100 22 132/78 (96) 94 12/18/19 00:00 99.0 100 20 96/67 (77) 94 12/17/19 21:13 Non-Rebreather 15.0 12/17/19 20:00 99.0 73 20 98/66 (77) 98 12/17/19 17:23 104 105/71 12/17/19 16:00 99.1 104 20 105/71 (82) 100 Height (Feet): 6 Height (Inches): 1.00 Weight (Pounds): 170 HEENT: mucous membranes moist Respiratory/Chest: other - oxygen by nasal cannula, tachpnea Cardiovascular: tachycardia Abdomen: soft, non tender, other - NG tube Extremities: no edema Neurologic/Psychiatric: aphasia Microbiology Date/Time Source Procedure Growth Status 12/17/19 16:00 Urine,Clean Catch Urine Culture - Preliminary NO GROWTH Resulted Laboratory Tests Test 12/17/19 16:00 12/18/19 05:00 Urine Color Jeniffer Urine Appearance Slightly cloudy Urine pH 5 (4.5-8.0) Urine Specific [place] 1.005 (1.005-1.035) Urine Protein 2+ (NEGATIVE) H Urine Glucose (UA) Negative (NEGATIVE) Urine Ketones 1+ (NEGATIVE) H Urine Blood 4+ (NEGATIVE) H Urine Nitrite Positive (NEGATIVE) H Urine Bilirubin 2+ (NEGATIVE) H Urine Ictotest Positive (NEGATIVE) Urine Urobilinogen 12 MG/DL (0.0-1.0) H Urine Leukocyte Esterase 1+ (NEGATIVE) H Urine RBC 20-30 /HPF (0 - 0) H Urine WBC 0-2 /HPF (0 - 0) Urine Squamous Epithelial Cells None /LPF (NONE/OCC) Urine Bacteria Moderate /HPF (NONE) H White Blood Count 18.8 K/UL (4.8-10.8) #H Red Blood Count 4.83 M/UL (4.70-6.10) Hemoglobin 14.8 G/DL (14.2-18.0) Hematocrit 47.5 % (42.0-52.0) Mean Corpuscular Volume 98 FL (80-99) Mean Corpuscular Hemoglobin 30.7 PG (27.0-31.0) Mean Corpuscular Hemoglobin Concent 31.3 G/DL (32.0-36.0) L Red Cell Distribution Width 14.0 % (11.6-14.8) Platelet Count 201 K/UL (150-450) Mean Platelet Volume 8.4 FL (6.5-10.1) Neutrophils (%) (Auto) % (45.0-75.0) Lymphocytes (%) (Auto) % (20.0-45.0) Monocytes (%) (Auto) % (1.0-10.0) Eosinophils (%) (Auto) % (0.0-3.0) Basophils (%) (Auto) % (0.0-2.0) Differential Total Cells Counted 100 Neutrophils % (Manual) 80 % (45-75) H Lymphocytes % (Manual) 8 % (20-45) L Monocytes % (Manual) 6 % (1-10) Eosinophils % (Manual) 0 % (0-3) Basophils % (Manual) 0 % (0-2) Band Neutrophils 6 % (0-8) Platelet Estimate Adequate Platelet Morphology Normal Red Blood Cell Morphology Normal Sodium Level 152 MMOL/L (136-145) H Potassium Level 4.2 MMOL/L (3.5-5.1) Chloride Level 113 MMOL/L (98-107) H Carbon Dioxide Level 31 MMOL/L (21-32) Anion Gap 8 mmol/L (5-15) Blood Urea Nitrogen 47 mg/dL (7-18) H Creatinine 1.3 MG/DL (0.55-1.30) Estimat Glomerular Filtration Rate > 60 mL/min (>60) Glucose Level 133 MG/DL (74-106) H Calcium Level 9.1 MG/DL (8.5-10.1) Current Medications Medications (Trade) Dose Ordered Sig/Faby Route PRN Reason Start Time Stop Time Status Last Admin Dose Admin Acetaminophen (Tylenol) 650 mg Q4H PRN ORAL mild pain/temp 12/14/19 08:57 01/13/20 08:56 12/17/19 11:51 Acetaminophen (Tylenol) 650 mg Q4H PRN RECTAL Mild Pain / temp 12/12/19 07:45 01/11/20 07:44 12/13/19 01:37 Amlodipine Besylate (Norvasc) 2.5 mg BID ORAL 12/15/19 18:00 01/11/20 17:59 12/18/19 09:01 Carbidopa/Levodopa (Sinemet 25/100) 1 tab TID ORAL 12/14/19 13:00 01/13/20 12:59 12/18/19 12:32 Dextrose 1,000 ml @ 75 mls/hr [id number] IV 12/18/19 08:30 01/14/20 08:29 12/18/19 08:30 Docusate Sodium (Colace) 100 mg THREE TIMES A DAY NG 12/17/19 13:00 01/16/20 12:59 12/18/19 12:32 Metoclopramide HCl (Reglan) 10 mg Q6H IVP 12/17/19 12:30 01/16/20 12:29 12/18/19 12:32 Metoclopramide HCl (Reglan) 10 mg Q6H PRN IVP Nausea & Vomiting 12/15/19 10:45 01/14/20 10:44 Pantoprazole (Protonix) 40 mg EVERY 12 HOURS IVP 12/12/19 21:00 01/11/20 20:59 12/18/19 09:00 Piperacillin Sod/ Tazobactam Sod 3.375 gm/Sodium Chloride 110 ml @ 27.5 mls/hr EVERY 8 HOURS IVPB 12/15/19 16:00 12/20/19 15:59 12/18/19 06:02 Kelvin Lafleur MD Dec 18, 2019 12:38
--- NOTE | 2019-12-18 13:25 | Nephrology Progress Note ---
Assessment/Plan Problem List: (1) JAYDEN (acute kidney injury) (2) Dehydration (3) Fever (4) Pneumonia due to COVID-19 virus Assessment This 74-year-old male is admitted with fever and possible COVID positive infection On presentation the patient has acute renal failure which suggests a pattern of mainly dehydration Most likely has underlying chronic kidney disease Other conditions include Parkinson's and dementia Evidence of UTI Elevated CK possible rhabdo . Plan December 17: Patient lethargic, remains tachypneic. On nasal cannula. Labs reviewed. Mild hypernatremia. Continue per consultants. December 16: Serum creatinine stable. On nonrebreathing mask. Continue per pulmonary and ID. Last chest x-ray from December 14 indicative of bilateral pleural effusion right more than the left. December 15: On non-rebreathing mask. Today's labs reviewed. Renal parameters stable. Creatinine 1.4. Continue per pulmonary and ID. December 14: NGT in place however feeding on hold due to his high residual. Patient is slightly tachypneic. ABG noted. Chest x-ray pending. Patient remains on Rocephin. Patient is DNR. Will change IV to D5W 50 cc an hour while feeding is on hold. Will discuss with the consultants as the patient may need a more broader spectrum antibiotics. Reglan intravenously initiated. Patient is stable from renal standpoint of view. Previously: Remains n.p.o. pending GI advice Keep blood pressure in check IV hydration, monitor CPK and liver function tests. Renal parameters improving. Monitor renal parameters Fish catheter May need broad-spectrum antibiotics, defer to ID Per consultants Chest x-ray: Impression: Extensive infiltrate throughout the right mid and lower lung, new since prior exam of 2 days earlier, likely on the basis of pneumonia. Left basilar atelectasis Subjective ROS Limited/Unobtainable: No Constitutional: Reports: malaise, weakness Objective Objective Last 24 Hour Vital Signs Date Time Temp Pulse Resp B/P (MAP) Pulse Ox O2 Delivery O2 Flow Rate FiO2 12/18/19 09:01 103 132/80 12/18/19 09:00 Nasal Cannula 3.0 12/18/19 08:00 99.0 103 23 128/80 (96) 96 12/18/19 04:00 99.0 100 22 132/78 (96) 94 6/17/20 00:00 99.0 100 20 96/67 (77) 94 12/17/19 21:13 Non-Rebreather 15.0 12/17/19 20:00 99.0 73 20 98/66 (77) 98 12/17/19 17:23 104 105/71 12/17/19 16:00 99.1 104 20 105/71 (82) 100 Intake and Output 12/17/19 12/18/19 19:00 07:00 Intake Total 1075.0 ml 640 ml Output Total 600 ml Balance 475.0 ml 640 ml Free Water 100 ml 100 ml IV Total 255.0 ml Tube Feeding 720 ml 540 ml Output Urine Total 600 ml # Bowel Movements 1 Laboratory Tests 12/17/19 16:00: Urine Color Jeniffer, Urine Appearance Slightly cloudy, Urine pH 5, Urine Specific [place] 1.005, Urine Protein 2+H, Urine Glucose (UA) Negative, Urine Ketones 1+H , Urine Blood 4+H, Urine Nitrite PositiveH, Urine Bilirubin 2+H, Urine Ictotest Positive, Urine Urobilinogen 12H, Urine Leukocyte Esterase 1+H, Urine RBC 20-30H , Urine WBC 0-2, Urine Squamous Epithelial Cells None, Urine Bacteria ModerateH 12/18/19 05:00: White Blood Count 18.8#H, Red Blood Count 4.83, Hemoglobin 14.8, Hematocrit 47.5 , Mean Corpuscular Volume 98, Mean Corpuscular Hemoglobin 30.7, Mean Corpuscular Hemoglobin Concent 31.3L, Red Cell Distribution Width 14.0, Platelet Count 201, Mean Platelet Volume 8.4, Neutrophils (%) (Auto) , Lymphocytes (%) (Auto) , Monocytes (%) (Auto) , Eosinophils (%) (Auto) , Basophils (%) (Auto) , Differential Total Cells Counted 100, Neutrophils % ( Manual) 80H, Lymphocytes % (Manual) 8L, Monocytes % (Manual) 6, Eosinophils % ( Manual) 0, Basophils % (Manual) 0, Band Neutrophils 6, Platelet Estimate Adequate, Platelet Morphology Normal, Red Blood Cell Morphology Normal, Sodium Level 152H, Potassium Level 4.2, Chloride Level 113H, Carbon Dioxide Level 31, Anion Gap 8, Blood Urea Nitrogen 47H, Creatinine 1.3, Estimat Glomerular Filtration Rate > 60, Glucose Level 133H, Calcium Level 9.1 Height (Feet): 6 Height (Inches): 1.00 Weight (Pounds): 170 General Appearance: no apparent distress, lethargic Cardiovascular: tachycardia Respiratory/Chest: decreased breath sounds Abdomen: distended Brent Gonsales MD Dec 18, 2019 13:25
--- NOTE | 2019-12-18 13:38 | Consultation ---
History of Present Illness General Date patient seen: Dec 18, 2019 Reason for Hospitalization: Fever Present Illness HPI 74-year-old male multi-medical comorbidities COVID positive admitted for fever abnormal labs respiratory insufficiency. Abnormal labs. Surgery called to evaluate and assist with care of critically ill patient. Patient seen, patient evaluated, chart reviewed. Allergies: Coded Allergies: No Known Allergies (Unverified , 12/11/19) COVID-19 Screening Contact w/high risk pt: No Recent Travel to affected area: No Experienced COVID-19 symptoms?: Yes COVID-19 symptoms experienced: Fever (T>100.4F or >38C) Medication History Scheduled Amantadine Hcl* (Amantadine*), 100 MG ORAL THREE TIMES A DAY, (Reported) Ascorbic Acid* (Vitamin C*), 500 MG ORAL DAILY, (Reported) Bisacodyl (Dulcolax), 10 MG RC NEEDED, (Reported) Cholecalciferol (Vitamin D3) (Cholecalciferol), 1 GM MC DAILY, (Reported) Cranberry Fruit (Cranberry), 450 MG PO DAILY, (Reported) Diclofenac Sodium (Voltaren), 2 GM TP BID, (Reported) Docusate Sodium* (Colace*), 100 MG ORAL DAILY, (Reported) Lidocaine Patch* (Lidoderm Patch*), 1 PATCH TOPIC DAILY, (Reported) Multivitamins* (Multivitamins*), 1 TAB ORAL DAILY, (Reported) Na Phos,M-B/Na Phos,Di-Ba* (Fleet Enema*), 133 ML RECTAL DAILY, (Reported) Polyvinyl Alcohol (Artificial Tears), 10 ML OP DAILY, (Reported) Scheduled PRN Acetaminophen* (Tylenol Extra Strength*), 1,000 MG ORAL Q4HR PRN for Pain Scale (3-5), (Reported) Magnesium Hydroxide* (Milk Of Magnesia*), 30 ML ORAL DAILY PRN for Constipation, (Reported) Patient History Limited by: medical condition History Provided By: Medical Record, PMD Healthcare decision maker Resuscitation status Advanced Directive on File No Past Medical/Surgical History Past Medical/Surgical History: (1) Suspected COVID-19 virus infection (2) Dehydration (3) Fever (4) JAYDEN (acute kidney injury) (5) Pneumonia due to COVID-19 virus (6) Failure to thrive Review of Systems Review of Symptoms General ROS: no weight loss or fever Psychological ROS: no depression or mood changes, no memory loss Ophthalmic ROS: no visual changes or eye irritation ENT ROS: no nasal congestion, hearing loss, dizziness Allergy and Immunology ROS: no allergic symptoms or urticaria Hematological and Lymphatic ROS: no swollen glands, unusual bleeding or bruising Endocrine ROS: no polyuria, polydipsia, weight changes, temperature intolerance Respiratory ROS: no cough, shortness of breath, or wheezing Cardiovascular ROS: no chest pain or dyspnea on exertion Gastrointestinal ROS: denies abdominal pain, bright red blood in stool. Musculoskeletal ROS: no myalgias or arthralgias Neurological ROS: no TIA or stroke symptoms Dermatological ROS: no new or changing skin lesions, rashes or pruritis Minimal able to be obtained given patient's condition Physical Exam Physical Exam General appearance: distress, appears stated age Head: Normocephalic, without obvious abnormality, atraumatic Eyes: conjunctivae/corneas clear. PERRL, EOM's intact. Fundi benign Throat: Lips, mucosa, and tongue normal. Teeth and gums normal Neck: supple, symmetrical, trachea midline, no adenopathy, thyroid: not enlarged, symmetric, no tenderness/mass/nodules, no carotid bruit and no JVD Lungs: clear to auscultation bilaterally Heart: regular rate and rhythm, S1, S2 normal, no murmur, click, rub or gallop Abdomen: soft, non-tender. Bowel sounds normal. No masses, no organomegaly Extremities: extremities normal, atraumatic, no cyanosis or edema Pulses: symmetric Skin: Skin color, texture, turgor normal. No rashes or lesions Neurologic: Grossly normal Last 24 Hour Vital Signs Date Time Temp Pulse Resp B/P (MAP) Pulse Ox O2 Delivery O2 Flow Rate FiO2 12/18/19 09:01 103 132/80 12/18/19 09:00 Nasal Cannula 3.0 12/18/19 08:00 99.0 103 23 128/80 (96) 96 12/18/19 04:00 99.0 100 22 132/78 (96) 94 12/18/19 00:00 99.0 100 20 96/67 (77) 94 12/17/19 21:13 Non-Rebreather 15.0 12/17/19 20:00 99.0 73 20 98/66 (77) 98 12/17/19 17:23 104 105/71 12/17/19 16:00 99.1 104 20 105/71 (82) 100 Intake and Output 12/17/19 12/18/19 19:00 07:00 Intake Total 1075.0 ml 640 ml Output Total 600 ml Balance 475.0 ml 640 ml Free Water 100 ml 100 ml IV Total 255.0 ml Tube Feeding 720 ml 540 ml Output Urine Total 600 ml # Bowel Movements 1 Laboratory Tests Test 12/17/19 16:00 12/18/19 05:00 Urine Color Jeniffer Urine Appearance Slightly cloudy Urine pH 5 (4.5-8.0) Urine Specific [place] 1.005 (1.005-1.035) Urine Protein 2+ (NEGATIVE) H Urine Glucose (UA) Negative (NEGATIVE) Urine Ketones 1+ (NEGATIVE) H Urine Blood 4+ (NEGATIVE) H Urine Nitrite Positive (NEGATIVE) H Urine Bilirubin 2+ (NEGATIVE) H Urine Ictotest Positive (NEGATIVE) Urine Urobilinogen 12 MG/DL (0.0-1.0) H Urine Leukocyte Esterase 1+ (NEGATIVE) H Urine RBC 20-30 /HPF (0 - 0) H Urine WBC 0-2 /HPF (0 - 0) Urine Squamous Epithelial Cells None /LPF (NONE/OCC) Urine Bacteria Moderate /HPF (NONE) H White Blood Count 18.8 K/UL (4.8-10.8) #H Red Blood Count 4.83 M/UL (4.70-6.10) Hemoglobin 14.8 G/DL (14.2-18.0) Hematocrit 47.5 % (42.0-52.0) Mean Corpuscular Volume 98 FL (80-99) Mean Corpuscular Hemoglobin 30.7 PG (27.0-31.0) Mean Corpuscular Hemoglobin Concent 31.3 G/DL (32.0-36.0) L Red Cell Distribution Width 14.0 % (11.6-14.8) Platelet Count 201 K/UL (150-450) Mean Platelet Volume 8.4 FL (6.5-10.1) Neutrophils (%) (Auto) % (45.0-75.0) Lymphocytes (%) (Auto) % (20.0-45.0) Monocytes (%) (Auto) % (1.0-10.0) Eosinophils (%) (Auto) % (0.0-3.0) Basophils (%) (Auto) % (0.0-2.0) Differential Total Cells Counted 100 Neutrophils % (Manual) 80 % (45-75) H Lymphocytes % (Manual) 8 % (20-45) L Monocytes % (Manual) 6 % (1-10) Eosinophils % (Manual) 0 % (0-3) Basophils % (Manual) 0 % (0-2) Band Neutrophils 6 % (0-8) Platelet Estimate Adequate Platelet Morphology Normal Red Blood Cell Morphology Normal Sodium Level 152 MMOL/L (136-145) H Potassium Level 4.2 MMOL/L (3.5-5.1) Chloride Level 113 MMOL/L (98-107) H Carbon Dioxide Level 31 MMOL/L (21-32) Anion Gap 8 mmol/L (5-15) Blood Urea Nitrogen 47 mg/dL (7-18) H Creatinine 1.3 MG/DL (0.55-1.30) Estimat Glomerular Filtration Rate > 60 mL/min (>60) Glucose Level 133 MG/DL (74-106) H Calcium Level 9.1 MG/DL (8.5-10.1) Microbiology Date/Time Source Procedure Growth Status 12/17/19 16:00 Urine,Clean Catch Urine Culture - Preliminary NO GROWTH Resulted Height (Feet): 6 Height (Inches): 1.00 Weight (Pounds): 170 Medications Current Medications Medications (Trade) Dose Ordered Sig/Faby Route PRN Reason Start Time Stop Time Status Last Admin Dose Admin Acetaminophen (Tylenol) 650 mg Q4H PRN ORAL mild pain/temp 12/14/19 08:57 01/13/20 08:56 12/17/19 11:51 Acetaminophen (Tylenol) 650 mg Q4H PRN RECTAL Mild Pain / temp 12/12/19 07:45 01/11/20 07:44 12/13/19 01:37 Amlodipine Besylate (Norvasc) 2.5 mg BID ORAL 12/15/19 18:00 01/11/20 17:59 12/18/19 09:01 Carbidopa/Levodopa (Sinemet 25/100) 1 tab TID ORAL 12/14/19 13:00 01/13/20 12:59 12/18/19 12:32 Dextrose 1,000 ml @ 75 mls/hr [id number] IV 12/18/19 08:30 01/14/20 08:29 12/18/19 08:30 Docusate Sodium (Colace) 100 mg THREE TIMES A DAY NG 12/17/19 13:00 01/16/20 12:59 12/18/19 12:32 Metoclopramide HCl (Reglan) 10 mg Q6H IVP 12/17/19 12:30 01/16/20 12:29 12/18/19 12:32 Metoclopramide HCl (Reglan) 10 mg Q6H PRN IVP Nausea & Vomiting 12/15/19 10:45 01/14/20 10:44 Pantoprazole (Protonix) 40 mg EVERY 12 HOURS IVP 12/12/19 21:00 01/11/20 20:59 12/18/19 09:00 Piperacillin Sod/ Tazobactam Sod 3.375 gm/Sodium Chloride 110 ml @ 27.5 mls/hr EVERY 8 HOURS IVPB 12/15/19 16:00 12/20/19 15:59 12/18/19 13:23 Assessment/Plan Problem List: (1) Suspected COVID-19 virus infection ICD Codes: Z20.828 - Contact with and (suspected) exposure to other viral communicable diseases SNOMED: 839536073 (2) Dehydration ICD Codes: E86.0 - Dehydration SNOMED: 37254959 (3) Fever ICD Codes: R50.9 - Fever, unspecified SNOMED: 853796502 (4) JAYDEN (acute kidney injury) ICD Codes: N17.9 - Acute kidney failure, unspecified SNOMED: 9463672, 55632918 (5) Pneumonia due to COVID-19 virus Assessment & Plan: Leukocytosis, abnormal labs, elevated LFTs T bili. Deteriorating skin condition overall given how sick patient is malnourished and failure to thrive Imaging reviewed labs reviewed Unfortunately inevitable decline given patient's condition persistent medical condition. He is deteriorating quickly. No acute surgical intervention again recommended Further work-up held given patient's acute deterioration if improves can continue work-up Pt deconditioned. Pt noted by overnight cashier nurse to have developed DTPI Buttocks that is partially opened at alfreda cleft ,R and L gluteal cheeks(L)10.8cm x (W) 16.5cm. Base of wound is indurated black, fluctuant areas of slough at cleft,R and L gluteus. No odor or exudate noted. Darker skin tone without induration or fluctuance R and L ischial tuberosities. R and L heels are soft but blanchable. Dry eschar noted to cleft of R ear . No erythema noted. Wound Buttocks cleansed with Saline. Therahoney applied to wounds. Moisture Barrier Paste applied periwound and covered with Optifoam drsg. Moisture Barrier Paste applied to scrotum, R and L ischial tuberosities.Pt positioned with Pillows in bed. Cavilon Skin Barrier applied to each heel and Malleoli both feet and each area covered with Optifoam drsgs for protection.Both heels floated off mattress with pillows. Foot Setter informed of wounds Tx.Plan:Cleanse wound Buttocks with Saline. Apply Therahoney.Apply Moisture Barrier Paste periwound. Cover with Optifoam drsg. Change Daily and prn. Apply Cavilon Skin Barrier to both heels, Malleoli. Cover each site with Optifoam drsg. Change every 7 days and prn. Reposition at least every 2hours or as tolerated. Off-load heels with Pillow. APM/BETO Mattress overlay. ICD Codes: U07.1 - COVID-19; J12.89 - Other viral pneumonia SNOMED: 511776268, 734232830 (6) Failure to thrive SNOMED: 54807546 Ranulfo Kay Dec 18, 2019 13:38
--- NOTE | 2019-12-18 14:06 | Cardiac Electrophysiology PN ---
Assessment/Plan Assessment/Plan 1. Sinus tachycardia due to dehydration and sepsis. Ruled out for OR 2. Sepsis. On antibiotic per ID. 3. Rhabdomyolysis and renal failure with creatinine of 2.3, improved to 1.4. FU Dr. Gonsales. 4. Parkinson disease and dementia. 5. Dysphagia, May need PEG per Dr Carol COLLAZO RN Subjective Subjective No new events. Covid positive from 12/11. NGT feeding. DNR Objective Last 24 Hour Vital Signs Date Time Temp Pulse Resp B/P (MAP) Pulse Ox O2 Delivery O2 Flow Rate FiO2 12/18/19 09:01 103 132/80 12/18/19 09:00 Nasal Cannula 3.0 12/18/19 08:00 99.0 103 23 128/80 (96) 96 12/18/19 04:00 99.0 100 22 132/78 (96) 94 12/18/19 00:00 99.0 100 20 96/67 (77) 94 12/17/19 21:13 Non-Rebreather 15.0 12/17/19 20:00 99.0 73 20 98/66 (77) 98 12/17/19 17:23 104 105/71 12/17/19 16:00 99.1 104 20 105/71 (82) 100 Intake and Output 12/17/19 12/18/19 19:00 07:00 Intake Total 1075.0 ml 640 ml Output Total 600 ml Balance 475.0 ml 640 ml Free Water 100 ml 100 ml IV Total 255.0 ml Tube Feeding 720 ml 540 ml Output Urine Total 600 ml # Bowel Movements 1 Laboratory Tests Test 12/17/19 16:00 12/18/19 05:00 Urine Color Jeniffer Urine Appearance Slightly cloudy Urine pH 5 (4.5-8.0) Urine Specific [place] 1.005 (1.005-1.035) Urine Protein 2+ (NEGATIVE) H Urine Glucose (UA) Negative (NEGATIVE) Urine Ketones 1+ (NEGATIVE) H Urine Blood 4+ (NEGATIVE) H Urine Nitrite Positive (NEGATIVE) H Urine Bilirubin 2+ (NEGATIVE) H Urine Ictotest Positive (NEGATIVE) Urine Urobilinogen 12 MG/DL (0.0-1.0) H Urine Leukocyte Esterase 1+ (NEGATIVE) H Urine RBC 20-30 /HPF (0 - 0) H Urine WBC 0-2 /HPF (0 - 0) Urine Squamous Epithelial Cells None /LPF (NONE/OCC) Urine Bacteria Moderate /HPF (NONE) H White Blood Count 18.8 K/UL (4.8-10.8) #H Red Blood Count 4.83 M/UL (4.70-6.10) Hemoglobin 14.8 G/DL (14.2-18.0) Hematocrit 47.5 % (42.0-52.0) Mean Corpuscular Volume 98 FL (80-99) Mean Corpuscular Hemoglobin 30.7 PG (27.0-31.0) Mean Corpuscular Hemoglobin Concent 31.3 G/DL (32.0-36.0) L Red Cell Distribution Width 14.0 % (11.6-14.8) Platelet Count 201 K/UL (150-450) Mean Platelet Volume 8.4 FL (6.5-10.1) Neutrophils (%) (Auto) % (45.0-75.0) Lymphocytes (%) (Auto) % (20.0-45.0) Monocytes (%) (Auto) % (1.0-10.0) Eosinophils (%) (Auto) % (0.0-3.0) Basophils (%) (Auto) % (0.0-2.0) Differential Total Cells Counted 100 Neutrophils % (Manual) 80 % (45-75) H Lymphocytes % (Manual) 8 % (20-45) L Monocytes % (Manual) 6 % (1-10) Eosinophils % (Manual) 0 % (0-3) Basophils % (Manual) 0 % (0-2) Band Neutrophils 6 % (0-8) Platelet Estimate Adequate Platelet Morphology Normal Red Blood Cell Morphology Normal Sodium Level 152 MMOL/L (136-145) H Potassium Level 4.2 MMOL/L (3.5-5.1) Chloride Level 113 MMOL/L (98-107) H Carbon Dioxide Level 31 MMOL/L (21-32) Anion Gap 8 mmol/L (5-15) Blood Urea Nitrogen 47 mg/dL (7-18) H Creatinine 1.3 MG/DL (0.55-1.30) Estimat Glomerular Filtration Rate > 60 mL/min (>60) Glucose Level 133 MG/DL (74-106) H Calcium Level 9.1 MG/DL (8.5-10.1) Microbiology Date/Time Source Procedure Growth Status 12/17/19 16:00 Urine,Clean Catch Urine Culture - Preliminary NO GROWTH Resulted Objective HEAD AND NECK: no JVD. LUNGS: Coarse rhonchi. CARDIOVASCULAR: Shows regular S1 and S2 with no gallop or murmur. Tachycardic. ABDOMEN: Soft. EXTREMITIES: No pitting edema. Luis Daniel Harding MD Dec 18, 2019 14:06
[2019-12-18 16:00] VITALS: BP 126/77
[2019-12-18 20:00] VITALS: BP 99/52
--- NOTE | 2019-12-18 21:41 | General Progress Note ---
Assessment/Plan Problem List: (1) Failure to thrive SNOMED: 36121770 (2) Dehydration ICD Codes: E86.0 - Dehydration SNOMED: 49584581 (3) Fever ICD Codes: R50.9 - Fever, unspecified SNOMED: 649878835 (4) Pneumonia due to COVID-19 virus ICD Codes: U07.1 - COVID-19; J12.89 - Other viral pneumonia SNOMED: 855092425, 157933281 (5) JAYDEN (acute kidney injury) ICD Codes: N17.9 - Acute kidney failure, unspecified SNOMED: 6489775, 45303314 Status: progressing Assessment/Plan: covid positive pna weak fluids afebrile reviewed chart and labs persistent elevat lft Subjective ROS Limited/Unobtainable: Yes Allergies: Coded Allergies: No Known Allergies (Unverified , 12/11/19) Objective Last 24 Hour Vital Signs Date Time Temp Pulse Resp B/P (MAP) Pulse Ox O2 Delivery O2 Flow Rate FiO2 12/18/19 20:00 98.2 106 24 99/52 (68) 94 12/18/19 17:56 110 126/77 12/18/19 16:49 98.3 12/18/19 16:00 99.9 110 24 126/77 (93) 97 12/18/19 12:00 99.8 107 24 132/83 (99) 96 12/18/19 09:01 103 132/80 12/18/19 09:00 Nasal Cannula 3.0 12/18/19 08:00 99.0 103 23 128/80 (96) 96 12/18/19 04:00 99.0 100 22 132/78 (96) 94 12/18/19 00:00 99.0 100 20 96/67 (77) 94 Intake and Output 12/17/19 12/18/19 19:00 07:00 Intake Total 1075.0 ml 700 ml Output Total 600 ml Balance 475.0 ml 700 ml Free Water 100 ml 100 ml IV Total 255.0 ml Tube Feeding 720 ml 600 ml Output Urine Total 600 ml # Bowel Movements 1 Laboratory Tests 12/18/19 05:00: White Blood Count 18.8#H, Red Blood Count 4.83, Hemoglobin 14.8, Hematocrit 47.5 , Mean Corpuscular Volume 98, Mean Corpuscular Hemoglobin 30.7, Mean Corpuscular Hemoglobin Concent 31.3L, Red Cell Distribution Width 14.0, Platelet Count 201, Mean Platelet Volume 8.4, Neutrophils (%) (Auto) , Lymphocytes (%) (Auto) , Monocytes (%) (Auto) , Eosinophils (%) (Auto) , Basophils (%) (Auto) , Differential Total Cells Counted 100, Neutrophils % ( Manual) 80H, Lymphocytes % (Manual) 8L, Monocytes % (Manual) 6, Eosinophils % ( Manual) 0, Basophils % (Manual) 0, Band Neutrophils 6, Platelet Estimate Adequate, Platelet Morphology Normal, Red Blood Cell Morphology Normal, Sodium Level 152H, Potassium Level 4.2, Chloride Level 113H, Carbon Dioxide Level 31, Anion Gap 8, Blood Urea Nitrogen 47H, Creatinine 1.3, Estimat Glomerular Filtration Rate > 60, Glucose Level 133H, Calcium Level 9.1 Height (Feet): 6 Height (Inches): 1.00 Weight (Pounds): 170 Kevin Anderson MD Dec 18, 2019 21:41
--- NOTE | 2019-12-18 23:29 | Psych Consult Progress Note ---
Psychiatry Progress Note Psychiatry Progress Note Subjective the pt has been asleep most morning. awake during my visit non verbal Medications Current Medications Medications (Trade) Dose Ordered Sig/Faby Route PRN Reason Start Time Stop Time Status Last Admin Dose Admin Acetaminophen (Tylenol) 650 mg Q4H PRN ORAL mild pain/temp 12/14/19 08:57 01/13/20 08:56 12/18/19 16:19 Acetaminophen (Tylenol) 650 mg Q4H PRN RECTAL Mild Pain / temp 12/12/19 07:45 01/11/20 07:44 12/13/19 01:37 Amlodipine Besylate (Norvasc) 2.5 mg BID ORAL 12/15/19 18:00 01/11/20 17:59 12/18/19 17:56 Carbidopa/Levodopa (Sinemet 25/100) 1 tab TID ORAL 12/14/19 13:00 01/13/20 12:59 12/18/19 17:56 Dextrose 1,000 ml @ 75 mls/hr [id number] IV 12/18/19 08:30 01/14/20 08:29 12/18/19 21:31 Docusate Sodium (Colace) 100 mg THREE TIMES A DAY NG 12/17/19 13:00 01/16/20 12:59 12/18/19 17:56 Metoclopramide HCl (Reglan) 10 mg Q6H IVP 12/17/19 12:30 01/16/20 12:29 12/18/19 17:56 Metoclopramide HCl (Reglan) 10 mg Q6H PRN IVP Nausea & Vomiting 12/15/19 10:45 01/14/20 10:44 Pantoprazole (Protonix) 40 mg EVERY 12 HOURS IVP 12/12/19 21:00 01/11/20 20:59 12/18/19 21:30 Piperacillin Sod/ Tazobactam Sod 3.375 gm/Sodium Chloride 110 ml @ 27.5 mls/hr EVERY 8 HOURS IVPB 12/15/19 16:00 12/20/19 15:59 12/18/19 21:30 Allergies: Coded Allergies: No Known Allergies (Unverified , 12/11/19) Objective Data Height (Feet): 6 Height (Inches): 1.00 Weight (Pounds): 170 General Appearance: WD/WN, no apparent distress, alert, confused Appearance: no abnormalities noted Behavior Mannerisms: poor eye contact Mental Status Exam - Affect: blunted Mental Status Exam - Mood: no abnormalities Mental Status Exam - Thought P: confusion, disorganized Mental Status Exam - Suicidal: not present Assessment/Plan Status: progressing Assessment/Plan: ASSESSMENT: 1. Parkinson disease. 2. Dementia 3. Acute encephalopathy PLAN: 1. The patient is on Sinemet. 2. dw pmBhavesh Peace MD Dec 18, 2019 23:29
[2019-12-19] VITALS: BP 96/49
[2019-12-19] MEDS: Metoclopramide 10mg/2ml Inj IVP SCH ×2 (00:27→05:52)
[2019-12-19 04:00] VITALS: BP 93/52
[2019-12-19] MEDS: Piperacillin/Tazobactam 3.375 GM in NS 110 ML IVPB SCH (05:52)
[2019-12-19 06:34] LABS: HEMATOCRIT 43.9 % (42.0-52.0); HEMOGLOBIN 13.7 G/DL (14.2-18.0); MEAN CORPUSCULAR VOLUME 98 FL (80-99); PLATELET COUNT 226 K/UL (150-450); RED BLOOD COUNT 4.47 M/UL (4.70-6.10); RED CELL DISTRIBUTION WIDTH 14.3 % (11.6-14.8); WHITE BLOOD COUNT 18.8 K/UL (4.8-10.8)
[2019-12-19 06:56] LABS: ALANINE AMINOTRANSFERASE 57 U/L (12-78); ALBUMIN 1.8 G/DL (3.4-5.0); ALBUMIN/GLOBULIN RATIO 0.3 (1.0-2.7); ALKALINE PHOSPHATASE 109 U/L (46-116); ANION GAP 6 mmol/L (5-15); ASPARTATE AMINO TRANSFERASE 66 U/L (15-37); BILIRUBIN,TOTAL 1.7 MG/DL (0.2-1.0); BLOOD UREA NITROGEN 46 mg/dL (7-18); CALCIUM 8.9 MG/DL (8.5-10.1); CARBON DIOXIDE 33 MMOL/L (21-32); CHLORIDE 111 MMOL/L (98-107); CREATININE 1.2 MG/DL (0.55-1.30); PHOSPHORUS 3.8 MG/DL (2.5-4.9); POTASSIUM 4.2 MMOL/L (3.5-5.1); SODIUM 150 MMOL/L (136-145)
[2019-12-19 07:00] LABS: BILIRUBIN,DIRECT 1.3 MG/DL (0.0-0.3)
--- NOTE | 2019-12-23 08:24 | Discharge Summary ---
Discharge Summary Discharge Summary _ SUMMARY DATE OF ADMISSION: 12/11/2019 DATE OF EXPIRATION: 12/19/2019 REASON FOR ADMISSION: 74 years old male, with past medical history of Parkinson disease, anxiety, dementia, presented for evaluation due to fever. According to the facility, patient had ever 100.6. No reported nausea, vomiting or diarrhea. No reported chest pain or shortness of breath. Patient by himself was unable to provide much of the information. Upon evaluation patient was afebrile. Patient required supplemental oxygen. Laboratory work-up revealed no leukocytosis, stable hemoglobin and hematocrit lymphopenia, severe lymphopenia noted. Stable electrolytes. BUN 54, creatinine 2.3. Lactic acid 1.6. AST 133, ALT 95. Troponin 0.021. EKG revealed sinus rhythm no acute ischemic changes. Urinalysis revealed +3 protein, +1 leukocyte esterase, no pyuria. Chest x-ray revealed chronic appearing central bronchial wall thickening, no definite acute process. Patient was swabbed for COVID-19 and admitted for fever, suspected COVID-19 infection and failure to thrive Per POLST patient was DNR/DNI status with comfort focused treatment, which was confirmed with family. CONSULTANTS: gas operations analyst Dr. Mendez pulmonary Dr. Gupta ID specialist Dr. Kelvin Lafleur GI specialist Dr. Medina crown presser Dr. Gonsales surgery Dr. Kay psychiatrist HOSPITAL COURSE: Patient admitted to isolation room. Later in the day patient spiked fevers. Patient pancultured ,started on empiric antibiotic as per ID specialist recommendation. Repeated chest x-ray revealed sensitive infiltrate throughout the right medial lower lung , new since the prior exam of 2 days earlier , likely on the basis of pneumonia. Left basilar atelectasis. Supplemental oxygen provided and titrated to keep pulse oximetry above 90% . Pulmonary toilet provided. 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 Isolation continued. Blood cultures were negative. Urine culture was negative. Patient was followed-up with chest x-ray . At some point patient required 100% nonrebreathing mask . but was able to wean to nasal cannula again. Bedside swallow evaluation was done. Patient was at risk for worsening dysphagia due to history of dementia and Parkinson disease with current infection. Speech therapist recommended to hold oral feeding. NG tube inserted for nutritional support. Feeding provided as per registered dietitian recommendation. Strict aspiration precaution maintained. GI specialist recommended PEG placement , which was discussed with the family . Renal parameters and electrolytes were closely monitored, electrolytes corrected as needed. Nephrotoxins were avoided. Renal ultrasound revealed no hydronephrosis or stones. Creatinine from 2.3 went down to 1.2. IV hydration continued. CPK and LFT were closely monitored. LFT trended down, but remained elevated. Hepatitis panel revealed evidence of positive hepatitis C antibody. Ball Rolling Machine Operator followed. Patient was noted to be tachycardic. Per cardiology sinus tachycardia was due to sepsis and dehydration. Serial troponin were negative. EKG revealed no acute ischemic changes. Patient was ruled out for acute myocardial infarction. Blood pressure was closely monitored and managed with calcium channel barry. Sinemet and amantadine continued. Supportive care provided. Wound care provided as per surgeon recommendation . Patient 's condition continued to deteriorate. Patient had intermittent fevers , and in the last two days developed developed leukocytosis with WBC 18. Patient was pronounced at 7:20 AM 12/18. Cause of : cardiopulmonary arrest probably due to COVID-19 infection. FINAL DIAGNOSES: Sepsis Confirmed COVID 19 infection COVID-19 pneumonia Elevated CK , probably rhabdomyolysis Acute kidney injury, most likely on underlying chronic kidney disease Dehydration Dysphagia Transaminitis Hepatitis C infection Sinus tachycardia (due to dehydration and sepsis) Acute encephalopathy Dementia Hypertension Parkinson disease Arthritis Failure to thrive I have been assigned to dictate discharge summary for this account. I was not involved in the patient's management. Rosemary Dyson NP Dec 23, 2019 08:24
== END 2019-12-19 07:20 | disposition expired | DRG 871 ==
LOC: EDBD 12:05 → EMR 12:24 → 4E 12:57 → EDBEDREQ 21:00
DX: A41.89 Other specified sepsis (principal); U07.1 COVID-19; J12.89 Other viral pneumonia; N17.9 Acute kidney failure, unspecified; N39.0 Urinary tract infection, site not specified; M62.82 Rhabdomyolysis; Z68.1 Body mass index [BMI] 19.9 or less, adult; G93.40 Encephalopathy, unspecified; E86.0 Dehydration; N18.9 Chronic kidney disease, unspecified; G20 Parkinson's disease; F02.80 Dementia in other diseases classified elsewhere, unspecified severity, without behavioral disturbance, psychotic disturbance, mood disturbance, and anxiety; R06.89 Other abnormalities of breathing; R74.0 Nonspecific elevation of levels of transaminase and lactic acid dehydrogenase [LDH]; R13.10 Dysphagia, unspecified; F41.9 Anxiety disorder, unspecified; R62.7 Adult failure to thrive; M19.90 Unspecified osteoarthritis, unspecified site; M62.81 Muscle weakness (generalized)
CPT/HCPCS: 36415; 36600; 71045; 74018; 76770; 80048; 80053; 81001; 81003; 82248; 82378; 82550; 82553; 82607; 82746; 82803; 82977; 83605; 83735; 83880; 84100; 84300; 84484; 84550; 85007; 85025; 86140; 86705; 86709; 86803; 87040; 87081; 87086; 87340; 92610; 93005; 96360; 99285; J2765; J7030